=== PATIENT | female | born 1950 | race Caucasian/White ===

== ENCOUNTER 2021-02-13 20:21 | Inpatient (IN) | payer MEDICARE, SELFPAY ==
[2021-02-13 20:29] VITALS: BP 137/76; PULSE 66; RESP 14; TEMP 37.4; O2SAT 96; BMI 23.3
--- NOTE | 2021-02-13 21:36 | CTR_ITS ---
PROCEDURE INFORMATION: Exam: CT Abdomen And Pelvis With Contrast Exam date and time: 02/13/2021 9:45 PM Age: 70 years old Clinical indication: Abdominal pain; Periumbilical; Prior surgery; Surgery date: 6+ months; Surgery type: Hyst, gb, ivc filter; Patient HX: C/O nausea chills and anterior abd wall pain; Additional info: Abdominal wall pain, mass TECHNIQUE: Imaging protocol: Computed tomography of the abdomen and pelvis with contrast. Radiation optimization: All CT scans at this facility use at least one of these dose optimization techniques: automated exposure control; mA and/or kV adjustment per patient size (includes targeted exams where dose is matched to clinical indication); or iterative reconstruction. Contrast material: VISI 320; Contrast volume: 95 ml; Contrast route: INTRAVENOUS (IV); COMPARISON: No relevant prior studies available. RADIATION DOSE METRICS: Total DLP (mGy-cm): 1251.76 FINDINGS: Lungs: 2.6 mm pulmonary nodularity is seen in the right posterior hemithorax. Minimal strandy opacities are seen adjacent to the parietal pleura in the left anterior lung base. Pleural spaces: There are strandy opacity seen extending from the parietal pleura in the right middle lobe compatible with some pleural scarring. Mediastinal space: There is a small hiatal hernia. Liver: Normal. No mass. Gallbladder and bile ducts: Status post cholecystectomy. Pancreas: Normal. No ductal dilation. Spleen: Normal. No splenomegaly. Adrenal glands: There is a heterogeneous left adrenal mass present measuring 4.0 x 3.5 x 3.4 cm. Kidneys and ureters: There multiple simple appearing cysts seen within the left kidney, largest measuring 3.1 cm seen in the upper pole. There is a heterogeneous complex cystic appearing mass present within the lateral aspect of the right kidney that measures 8.9 cm craniocaudal dimension by 8 cm AP dimension by 7.8 cm transverse dimension. Numerous irregular septi are seen and soft tissue nodules are seen, the largest measuring approximately 1.7-1.9 cm in diameter. This finding is worrisome for a cystic renal cell carcinoma. Stomach and bowel: Unremarkable. No obstruction. No mucosal thickening. Appendix: No evidence of appendicitis. Intraperitoneal space: Unremarkable. No free air. No significant fluid collection. Vasculature: Unremarkable. No abdominal aortic aneurysm. Lymph nodes: Unremarkable. No enlarged lymph nodes. Urinary bladder: Unremarkable as visualized. Reproductive: Status post hysterectomy. Bones/joints: Unremarkable. No acute fracture. Soft tissues: Diffuse hazy opacities are seen in the subcutaneous fat and fascia the lower abdominal wall anteriorly. Additionally, there mottled gas densities seen within the subcutaneous fat and fascia in this region, findings that raise some suspicion for a gas forming bacterial infection. A small metallic clip is seen in the superficial subareolar region of the right breast. CT/CT abdomen pelvis w con* [id number] IMPRESSION: 1. There is a heterogeneous cystic masses within the right kidney highly suspicious for a cystic renal cell carcinoma. Its dimensions are given above. A urological consult is suggested. 2. Simple left renal cysts, the largest measuring 3.1 cm. 3. There are diffuse hazy and strandy opacity seen in the subcutaneous fat and fascia of the lower anterior abdominal wall with scattered subcutaneous gas densities present, findings raising suspicion for a gas forming bacterial infection and developing necrotizing fasciitis. 4. There is a heterogeneous left adrenal mass present measuring to 4 cm. In a patient with cancer history, consider biopsy or PET-CT. (Reference: Anthony) 5. Metallic clip in the superficial subareolar region of the right breast. There are strandy opacities and some pleural thickening seen in the right middle lobe anteriorly likely representing chronic scarring. Strandy opacities in the left anterior lung base likely represents pleural scarring as well COMMENTS: Consistent with the [employer]'s Incidental Findings Committee white paper (J Am Sweta Radiol 2018): Any incidental renal lesion less than 1 cm or classified as too small to characterize, or any incidental cystic renal lesion characterized as simple-appearing, is likely benign. No follow-up imaging is recommended for these lesions per consensus recommendations based on imaging criteria. REFERENCES: Anthony WALDROP, et al. Management of Incidental Adrenal Masses: A White Paper of the ACR Incidental Findings Committee. J Am Sweta Radiol. 2017;14(8):9512-8268. Radiation Dose CTDIVOL = (mGy): DLP = 1251.76 (mGy-cm)
--- NOTE | 2021-02-13 21:54 | W.ED.ABDPA2 ---
HPI - Abdominal Pain General: Chief Complaint: Abdominal Pain Stated Complaint: hard lump under belly button Time Seen by Provider: 02/13/21 20:52 History of Present Illness: HPI narrative: 70-year-old female complains of nausea, chills, and abdominal wall pain. She states that she has a painful tender area that is red and warm to her anterior abdominal wall. She noticed Monday, it has grown since then. She has had chills today. She is not felt well. She denies knowing that she has a fever. No recent surgery or trauma to the area MD elicited complaint: abdominal pain Pertinent past history: other Onset (ago): day(s) Pain Consistency: constant Location: Suprapubic Severity: moderate Quality: burning Radiation: none Migration to: no migration Exacerbating factors: movement Relieving factors: nothing Associated Symptoms: Reports chills and nausea; Denies anorexia, constipation, diarrhea, fever(s), hematuria, fecal incontinence and vomiting Review of Systems Const: Reports: chills; Denies: fever(s) Card: Denies: chest pain or palpitations Resp: Denies: dyspnea, productive cough or non-productive cough GI: Reports: nausea; Denies: vomiting, diarrhea, constipation or fecal incontinence : Denies: hematuria Neuro: Denies: dizziness or confusion Physical Exam Const: GENERAL APPEARANCE: well developed ORIENTATION/CONSCIOUSNESS: Yes oriented to person, Yes oriented to place and Yes oriented to time HENMT: COMMON NORMALS: normocephalic, external ears normal and Normal external nose present HEAD & SCALP: normocephalic FACE & SINUS: normal facial exam NOSE: Normal external nose present and No nasal discharge present EXTERNAL EAR: Yes external ears normal Eye: COMMON NORMALS: Equal, round and reactive pupils present, EOMs intact bilaterally and conjunctivae normal EYELID: eyelids normal CONJUNCTIVA: Yes conjunctivae normal PUPIL: Yes Equal, round and reactive pupils present Neck/C-Spine: GENERAL: No tracheal deviation Chest: COMMONS NORMALS: normal inspection of the chest CHEST: No tenderness Resp: COMMON NORMALS: clear to auscultation bilaterally EFFORT & INSPECTION: No tachypneic, No respiratory distress, No retractions, No uses accessory muscles and No tracheal deviation AUSCULTATION: clear to auscultation bilaterally, no rhonchi, no wheezes and lung sounds not diminished Cardio: COMMON NORMALS: regular rate and regular rhythm RATE: regular rate RHYTHM: regular rhythm HEART SOUNDS: no murmurs PERIPHERAL PULSES: radial pulses present GI: INSPECTION: No abdominal distension AUSCULTATION: No Hyperactive bowel sounds present and No Hypoactive bowel sounds present PALPATION: Yes Tenderness to palpation present (GI) (Superficial tenderness over the suprapubic area), No Guarding due to palpation present (GI) and No Rigid due to palpation : COMMON NORMALS: Yes no CVA tenderness BLADDER/KIDNEY EXAM: Yes no CVA tenderness Back/Pelvis: COMMON NORMALS: no CVA tenderness Neuro: SENSORIUM/ORIENTATION: Yes oriented to person, Yes oriented to place and Yes oriented to time Psych: COMMON NORMALS: mental status grossly normal Skin: NARRATIVE SKIN EXAM: Area of beefy erythema in the subumbilical, suprapubic region of the belly. There is palpable induration here. No definite fluctuance. There is no streaking. The area is warm Course Consultations: Consultation #1: good Consultation #2: franca Vital Signs: Vital signs: Vital Signs Temperature 99.4 F 02/13/21 20:29 Pulse Rate 105 H 02/13/21 23:25 Respiratory Rate 19 H 02/13/21 23:25 Blood Pressure 151/84 02/13/21 23:25 Pulse Oximetry 96 02/13/21 23:25 MDM - Abdominal Pain MDM Narrative: Medical decision making narrative: 70-year-old female with anterior abdominal wall pain. Her white blood cell count is 12.1, CRP 160 her creatinine is 1.3. Her CT shows diffuse hazy and strandy opacities in the subcutaneous fat with small scattered subcutaneous gas densities present. Cellulitis with suspicion at least of early necrotizing fasciitis. She will be admitted. Vancomycin and Zosyn in the ER. Hospitalist will see. Surgery has been consulted from the ER and accepts the consult. Lab Data: Labs: Lab Results 02/13/21 02/13/21 02/13/21 Range/Units 21:23 22:00 22:00 WBC 12.1 H (4.0-10.0) 10^3/ uL RBC 4.27 (4.1-5.3) 10^6/u L Hgb 12.4 (11.5-15.3) g/dL Hct 38.4 (37.0-47.0) % MCV 89.9 (81-99) fL MCH 29.0 (28.0-34.0) pg MCHC 32.3 (30.0-36.0) g/dL RDW 12.5 (12.1-15.1) % Plt Count 235 (130-400) 10^3/c mm MPV 10.3 (7.4-10.4) fL Neut % (Auto) 83.2 % Lymph % (Auto) 7.7 % [place] % (Auto) 8.0 % Eos % (Auto) 0.3 % Baso % (Auto) 0.2 % Neut # (Auto) 10.11 H (1.8-7.7) 10^3/u L Lymph # (Auto) 0.9 (0.8-4.8) 10^3/u L [place] # (Auto) 1.0 H (0.2-0.9) 10^3/u L Eos # (Auto) 0.0 (0.0-0.8) 10^3/u L Baso # (Auto) 0.0 (0.0-0.1) 10^3/u L Nucleated RBC % (a uto) 0 % Nucleated RBCs # 0.0 /100WBC Sodium 129 L (136-145) mmol/L Potassium 3.9 (3.5-5.1) mmol/L Chloride 90 L (98-107) mmol/L Carbon Dioxide 25 (22-29) mmol/L Anion Gap 17.9 (5-19) BUN 36 H (8-23) mg/dL Creatinine 1.3 H (0.5-0.9) mg/dL GFR Calculation Not Reportable Glucose 489 H (65-115) mg/dL Calculated Osmolal ity 298 H (285-295) mOsm/k g Lactate (0.5-2.2) mmol/L Calcium 9.0 (8.5-10.5) mg/dL Total Bilirubin 0.4 (0.15-1.2) mg/dL AST 10 (0-32) U/L ALT 10 (0-33) U/L Alkaline Phosphata se 83 (35-105) IU/L C-Reactive Protein 159.4 H (0.0-4.9) mg/L Total Protein 7.5 (6.6-8.7) g/dL Albumin 4.1 (3.5-5.2) g/dL Globulin 3.4 (1.3-4.6) g/dL Urine Color Yellow (Yellow) Urine Appearance Sl hazy (CLEAR) Urine pH 5 (5-7) Ur Specific Gravit y 1.010 (1.005-1.030) Urine Protein Neg (Negative) Urine Glucose (UA) 4+ H (Normal) Urine Ketones Negative (Negative) Urine Blood 2+ H (Negative) Urine Nitrate Negative (Negative) Urine Bilirubin Neg (Negative) Urine Urobilinogen Norm (Negative) mg/dL Ur Leukocyte Rosario ase Negative (Negative) Urine RBC 0-4 H (0-2) /hpf Urine WBC 0-4 H (0-5) /hpf Ur Squamous Epith Cells 5-10 H (0-5) /hpf Amorphous Sediment Not Reportable Urine Bacteria Trace (NONE) /hpf 02/13/21 Range/Units 22:00 WBC (4.0-10.0) 10^3/ uL RBC (4.1-5.3) 10^6/u L Hgb (11.5-15.3) g/dL Hct (37.0-47.0) % MCV (81-99) fL MCH (28.0-34.0) pg MCHC (30.0-36.0) g/dL RDW (12.1-15.1) % Plt Count (130-400) 10^3/c mm MPV (7.4-10.4) fL Neut % (Auto) % Lymph % (Auto) % [place] % (Auto) % Eos % (Auto) % Baso % (Auto) % Neut # (Auto) (1.8-7.7) 10^3/u L Lymph # (Auto) (0.8-4.8) 10^3/u L [place] # (Auto) (0.2-0.9) 10^3/u L Eos # (Auto) (0.0-0.8) 10^3/u L Baso # (Auto) (0.0-0.1) 10^3/u L Nucleated RBC % (a uto) % Nucleated RBCs # /100WBC Sodium (136-145) mmol/L Potassium (3.5-5.1) mmol/L Chloride (98-107) mmol/L Carbon Dioxide (22-29) mmol/L Anion Gap (5-19) BUN (8-23) mg/dL Creatinine (0.5-0.9) mg/dL GFR Calculation Glucose (65-115) mg/dL Calculated Osmolal ity (285-295) mOsm/k g Lactate 2.1 (0.5-2.2) mmol/L Calcium (8.5-10.5) mg/dL Total Bilirubin (0.15-1.2) mg/dL AST (0-32) U/L ALT (0-33) U/L Alkaline Phosphata se (35-105) IU/L C-Reactive Protein (0.0-4.9) mg/L Total Protein (6.6-8.7) g/dL Albumin (3.5-5.2) g/dL Globulin (1.3-4.6) g/dL Urine Color (Yellow) Urine Appearance (CLEAR) Urine pH (5-7) Ur Specific Gravit y (1.005-1.030) Urine Protein (Negative) Urine Glucose (UA) (Normal) Urine Ketones (Negative) Urine Blood (Negative) Urine Nitrate (Negative) Urine Bilirubin (Negative) Urine Urobilinogen (Negative) mg/dL Ur Leukocyte Rosario ase (Negative) Urine RBC (0-2) /hpf Urine WBC (0-5) /hpf Ur Squamous Epith Cells (0-5) /hpf Amorphous Sediment Urine Bacteria (NONE) /hpf Discharge Plan Discharge Patient Disposition: Admitted As Inpatient Admit Provider: Magdaleno Kendall Clinical Impression: Cellulitis Qualifiers: Site of cellulitis: trunk Site of cellulitis of trunk: abdominal wall Qualified Code(s): L03.311 - Cellulitis of abdominal wall Condition: Stable Coding Level of Care Code ED Chronic Specialist for [facility] Fwd Exam Comprehensive
[2021-02-13 21:56] LABS: Protein Urine Neg (Negative); Urine Appearance SL Hazy (CLEAR); Urine Color Yellow (Yellow); pH Urine 5 (5-7)
[2021-02-13 21:57] LABS: Add Urine Microscopic? YES; Bilirubin Urine Neg (Negative); Blood Urine 2+ (Negative); Glucose Urine UA 4+ (Normal); Ketones Urine Negative (Negative); Leukocyte Esterase Urine Negative (Negative); Nitrate Urine Negative (Negative); Urobilinogen Urine Norm (Negative)
[2021-02-13 21:58] LABS: Add Urine Culture? No; Bacteria Urine TRACE /hpf; RBC Urine 0-4 /hpf (0-2); WBC Urine 0-4 /hpf (0-5)
[2021-02-13] MEDS: sodium chloride 0.9% 1,000 ML 999 ML IV (22:03)
[2021-02-13 22:04] LABS: Basophils % 0.2 %; Eosinophils % 0.3 %; Hematocrit 38.4 % (37.0-47.0); Hemoglobin 12.4 g/dL (11.5-15.3); Lymphocytes # 0.9 10^3/uL (0.8-4.8); Lymphocytes % 7.7 %; Mean Corpuscular HGB Conc 32.3 g/dL (30.0-36.0); Mean Corpuscular Volume 89.9 fL (81-99); Mean Platelet Volume 10.3 fL (7.4-10.4); Neutrophils # 10.11 10^3/uL (1.8-7.7); Neutrophils % 83.2 %; Nucleated Red Blood Cells % 0 %; Platelet Count 235 10^3/cmm (130-400); Red Blood Count 4.27 10^6/uL (4.1-5.3); Red Cell Distribution Width 12.5 % (12.1-15.1); White Blood Count 12.1 10^3/uL (4.0-10.0)
[2021-02-13 22:05] VITALS: BP 151/84; PULSE 87; RESP 18; O2SAT 97
[2021-02-13 22:27] LABS: Lactate (Lactic Acid level) 2.1 mmol/L (0.5-2.2)
[2021-02-13 22:28] LABS: Alanine Aminotransferase 10 U/L (0-33); Albumin Level 4.1 g/dL (3.5-5.2); Alkaline Phosphatase 83 IU/L (35-105); Anion Gap 17.9 (5-19); Aspartate Amino Transferase 10 U/L (0-32); Blood Urea Nitrogen 36 mg/dL (8-23); C Reactive Protein 159.4 mg/L (0.0-4.9); Carbon Dioxide 25 mmol/L (22-29); Chloride 90 mmol/L (98-107); Globulin 3.4 g/dL (1.3-4.6); Glucose 489 mg/dL (65-115); Osmolality Calculated 298 mOsm/kg (285-295); Potassium 3.9 mmol/L (3.5-5.1); Sodium 129 mmol/L (136-145); Total Bilirubin 0.4 mg/dL (0.15-1.2); Total Protein 7.5 g/dL (6.6-8.7)
[2021-02-13] MEDS: iodixanol 320 mg/mL 100mL Btl IV (23:15)
[2021-02-13 23:25] VITALS: BP 151/84; PULSE 105; RESP 19; O2SAT 96
[2021-02-13] MEDS: ondansetron 2 mg/ML SDV 2 mL 4 MG IVP (23:35)
[2021-02-13] MEDS: morphine 4 mg/mL SDV 1 mL IVP (23:36)
[2021-02-14] VITALS (17 sets, daily range): BP systolic 91–144; BP diastolic 54–74; PULSE 58–119; RESP 14–20; TEMP 36.2–38.1; O2SAT 90–100
[2021-02-14] MEDS: piperacillin-tazobactam 3.375 GM in sodium chloride 0.9% (plus) 50 ML IV (00:27)
--- NOTE | 2021-02-14 00:40 | P.HP_ITS ---
Providers/Chief Complaint Admitting Physician: Magdaleno Kendall MD Chief Complaint: hard lump under belly button History of Present Illness Amaris Larsen is a 70 year old female diabetic presented with painful abdominal wall tenderness and redness. Onset 6 days ago. progressive. Reported chills. On insulin for diabetes. In ER she had CT abdomen pelvis. ABX started. She is being admitted for suspected gas forming bacterial infection in abdominal wall. CT abdomen pelvis CT/CT abdomen pelvis w con* [id number] IMPRESSION: 1. There is a heterogeneous cystic masses within the right kidney highly suspicious for a cystic renal cell carcinoma. Its dimensions are given above. A urological consult is suggested. 2. Simple left renal cysts, the largest measuring 3.1 cm. 3. There are diffuse hazy and strandy opacity seen in the subcutaneous fat and fascia of the lower anterior abdominal wall with scattered subcutaneous gas densities present, findings raising suspicion for a gas forming bacterial infection and developing necrotizing fasciitis. 4. There is a heterogeneous left adrenal mass present measuring to 4 cm. In a patient with cancer history, consider biopsy or PET-CT. (Reference: [facility]) 5. Metallic clip in the superficial subareolar region of the right breast. There are strandy opacities and some pleural thickening seen in the right middle lobe anteriorly likely representing chronic scarring. Strandy opacities in the left anterior lung base likely represents pleural scarring as well Review of Systems General: Reports: 10 or more systems reviewed and unremarkable except in HPI and below Const: Reports: chills; Denies: fever(s) Eyes: Denies: change in vision ENMT: Denies: throat pain Card: Denies: chest pain or palpitations Resp: Denies: dyspnea or productive cough GI: Reports: abdominal pain; Denies: nausea Musc: Denies: extremity pain or extremity swelling Skin/Breast: Reports: pruritus; Denies: rash Medications/Allergies Allergies Allergy/AdvReac Type Severity Reaction Status Date / Time No Known Allergies Allergy Verified 02/13/21 20:36 Vitals/I&O/Wt Last Vital Signs Temp 99.4 F 02/13/21 20:29 Pulse 105 H 02/13/21 23:25 Resp 19 H 02/13/21 23:25 BP 151/84 02/13/21 23:25 Pulse Ox 96 02/13/21 23:25 02/13/21 02/13/21 02/14/21 14:59 22:59 06:59 Intake Total 1000 / 1000 Balance 1000 / 1000 Weight last 48 hrs Weight 140 lb Physical Exam Const: COMMON NORMALS: no acute distress and no limitations Resp: COMMON NORMALS: normal respiratory effort and No retractions Cardio: COMMON NORMALS: no JVD, regular rate and regular rhythm GI: OTHER: erythema, tender, fluctuance Neuro: COMMON NORMALS: patient oriented x3 and CN's II-XII intact bilaterally Psych: COMMON NORMALS: mental status grossly normal and Normal thought process present Data : 02/13/21 22:00 02/13/21 22:00 Micro: Microbiology 02/13/21 22:43 Blood Culture - Preliminary Blood SPECIMEN COLLECTED 02/13/21 22:46 Blood Culture - Preliminary Blood SPECIMEN COLLECTED A&P Assessment and plan (1) Cellulitis: gas forming bacteria ddx clostridum perfinges continue vancomycin, zosyn--started in ED followup cultures GS consult PRN analgesics Status: Acute (2) Renal mass: will need further workup after acute issues addressed Status: Acute (3) Adrenal mass: will need additional imaging Status: Acute (4) Diabetes: fsbs, ssi Status: Acute (5) Acute kidney injury: ivf repeat labs Status: Acute Attestations Medical Necessity Statement*: Amaris Larsen's hospital stay will require g reater than 2 midnights for skin infection 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
[2021-02-14] MEDS: vancomycin 1,000 MG in sodium chloride 0.9% 250 ML 250 MG IV (01:04)
[2021-02-14] MEDS: sodium chloride 0.9% 1,000 ML 75 ML IV (02:30)
[2021-02-14 07:04] LABS: Glucose Point of Care 304 mg/dL (70-110)
--- NOTE | 2021-02-14 08:20 | P.CONIM_ITS ---
Providers/Reason For Consult Consulting Physican/Specialty*: General Surgery Dr. Alvarado Reason for Consult*: Abdominal abscess Attending Physician: Jaci Sandhu MD History of Present Illness History of Present Illness Amaris Larsen is a 70 year old female who presented to the ER yesterday with duration. The patient states that the pain got progressively worse and she subsequently developed nausea and chills. She denies any vomiting or fevers.Patient denies any history of trauma. No similar episodes in the past. Patient is a diabetic. She does not have a PCP here. She smokes about half pack of cigarettes a day. Patient denies any constipation or diarrhea. Review of Systems General: Reports: 10 or more systems reviewed and unremarkable except in HPI and below Meds/Allergies Home Medications and Allergies Allergies Allergy/AdvReac Type Severity Reaction Status Date / Time No Known Allergies Allergy Verified 02/13/21 20:36 Current Medications Current Medications Generic Name Dose Route Start Last Admin Trade Name Freq PRN Reason Stop Dose Admin Sodium Chloride 1,000 mls @ 75 mls/hr 02/14/21 00:45 02/14/21 02:30 Sodium Chloride 0.9% IV 75 mls/hr .[id number] LYN Administration PFSH Acute PFSH: Medical History Breast cancer right and left Diabetes mellitus DVT (deep venous thrombosis) Dyslipidemia HTN (hypertension), benign Surgical History H/O total hysterectomy S/P IVC filter Status post laparoscopic cholecystectomy Status post left breast lumpectomy Status post right breast lumpectomy Vitals/I&O/Wt Last Vital Signs Temp 99.8 F H 02/14/21 04:00 Pulse 80 02/14/21 04:00 Resp 16 02/14/21 04:00 BP 114/69 02/14/21 04:00 Pulse Ox 92 02/14/21 04:00 02/13/21 02/14/21 02/14/21 22:59 06:59 14:59 Intake Total 1300 / 1300 Output Total 0 / 0 Balance 1300 / 1300 Weight last 48 hrs Weight 140 lb Physical Exam Narrative: EXAM NARRATIVE: HEENT: Normocephalic Eye: Sclera /conjunctiva normal Respiratory and chest: Bilateral clear breath sounds on auscultation Cardiovascular: Normal S1 and S2 heart sounds Abdomen: Soft to palpation, tender, 6 x 6 cm area of erythema and induration consistent with abdominal wall abscess Neurological: Oriented to place person and time Skin: Intact, no lesions appreciated on gross exam Data Micro: Micro: Microbiology 02/13/21 22:43 Blood Culture - Pr eliminary Blood SPECIMEN COLLE SHILOH 02/13/21 22:46 Blood Culture - Pr eliminary Blood SPECIMEN [facility] A&P Assessment and plan (1) Abdominal wall abscess: 70-year-old female, diabetic who presents with a 3-day history of abdominal pain and swelling. Her WBC was 12.1 and glucose in the ER was 489. Since CT abdomen pelvis revealed right kidney mass concerning for malignancy, left adrenal mass and 6 x 6 cm subcutaneous area with induration and air pockets consistent with an abscess. Patient had breakfast this morning therefore will make her n.p.o. 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
[2021-02-14 11:26] LABS: Glucose Point of Care 301 mg/dL (70-110)
--- NOTE | 2021-02-14 14:40 | PC.NURSE ---
patient taken to OR via bed.
--- NOTE | 2021-02-14 15:16 | ANES.PREANE2 ---
Pre-Anesthetic Assessment Pre-Anesthetic Assessment: Height/Weight: Height 1.65 m Weight 63.503 kg Temp Pulse Resp BP Pulse Ox 98.7 F 74 17 113/63 94 02/14/21 14:47 02/14/21 14:47 02/14/21 14:47 02/14/21 14:47 02/14/21 14:47 Preop Diagnosis: abdominal wall abscess Proposed Procedure: Operation Date: 02/14/21 15:10 Proposed Procedures p Incision And Drainage Abdominal Wall Abscess(Not Applicable) - Ezequiel Alvarado MD Was Beta Gwendolyn taken within 24 hours: N/A Was Clonidine taken within 24 hours: N/A Last intake: Intake Last Liquid Date 02/14/21 Last Liquid Time 08:00 Last Solid Date 02/14/21 Last Solid Time 08:00 Social: Social History: Tobacco Exam: Pre-Anes Outpt Exam: alert, oriented x 3, clear to auscultation bilaterally and regular rate & rhythm Airway: Submandibular: WNL Cervical ROM: WNL MP: 2 Additional comments: Profound dental disease History/ROS: No significant history except as noted Pulmonary: Pulmonary: COPD CV/HEM: CV/HEM: HTN : : None reported Hepatic: Hepatic: None reported GI: GI: GERD Metabolic: Metabolic: DM and Hyperlipidemia Musc/skel: Musc/skel: None reported Neuropsych: Neuropsych: None reported Anesthetic Plan: ASA status: 3E Anesthesia: General Meds/Allergies Current Medications: Current Medications Generic Name Dose Route Start Last Admin Trade Name Freq PRN Reason Stop Dose Admin Sodium Chloride 1,000 mls @ 75 ml s/hr 02/14/21 00:45 02/14/21 02:30 Sodium Chloride 0.9% IV 75 mls/hr .[id number] LYN Administration Insulin Aspart 0 unit 02/14/21 08:00 02/14/21 11:26 Insulin Aspart 1 00 Unit/1 Ml SUBCUT 10 unit WM&BEDTIME LYN Administration Protocol PFSH Anesthesia PFSH: Medical History Breast cancer right and left Diabetes mellitus DVT (deep venous thrombosis) Dyslipidemia HTN (hypertension), benign Surgical History H/O total hysterectomy S/P IVC filter Status post laparoscopic cholecystectomy Status post left breast lumpectomy Status post right breast lumpectomy Data Anesthesia CBC & Chem 7: 02/13/21 22:00 02/13/21 22:00 Other Labs: Laboratory Results - last 48 hr 02/13/21 02/13/21 02/13/21 21:23 22:00 22:00 WBC 12.1 H RBC 4.27 Hgb 12.4 Hct 38.4 MCV 89.9 MCH 29.0 MCHC 32.3 RDW 12.5 Plt Count 235 MPV 10.3 Neut % (Auto) 83.2 Lymph % (Auto) 7.7 [place] % (Auto) 8.0 Eos % (Auto) 0.3 Baso % (Auto) 0.2 Neut # (Auto) 10.11 H Lymph # (Auto) 0.9 [place] # (Auto) 1.0 H Eos # (Auto) 0.0 Baso # (Auto) 0.0 Nucleated RBC % (auto) 0 Nucleated RBCs # 0.0 Sodium 129 L Potassium 3.9 Chloride 90 L Carbon Dioxide 25 Anion Gap 17.9 BUN 36 H Creatinine 1.3 H GFR Calculation Not Reportable Glucose 489 H POC Glucose Calculated Osmolality 298 H Lactate Calcium 9.0 Total Bilirubin 0.4 AST 10 ALT 10 Alkaline Phosphatase 83 C-Reactive Protein 159.4 H Total Protein 7.5 Albumin 4.1 Globulin 3.4 Urine Color Yellow Urine Appearance Sl hazy Urine pH 5 Ur Specific [place] 1.010 Urine Protein Neg Urine Glucose (UA) 4+ H Urine Ketones Negative Urine Blood 2+ H Urine Nitrate Negative Urine Bilirubin Neg Urine Urobilinogen Norm Ur Leukocyte Esterase Negative Urine RBC 0-4 H Urine WBC 0-4 H Ur Squamous Epith Cells 5-10 H Amorphous Sediment Not Reportable Urine Bacteria Trace 02/13/21 02/14/21 02/14/21 22:00 06:17 11:22 WBC RBC Hgb Hct MCV MCH MCHC RDW Plt Count MPV Neut % (Auto) Lymph % (Auto) [place] % (Auto) Eos % (Auto) Baso % (Auto) Neut # (Auto) Lymph # (Auto) [place] # (Auto) Eos # (Auto) Baso # (Auto) Nucleated RBC % (auto) Nucleated RBCs # Sodium Potassium Chloride Carbon Dioxide Anion Gap BUN Creatinine GFR Calculation Glucose POC Glucose 304 H 301 H Calculated Osmolality Lactate 2.1 Calcium Total Bilirubin AST ALT Alkaline Phosphatase C-Reactive Protein Total Protein Albumin Globulin Urine Color Urine Appearance Urine pH Ur Specific [place] Urine Protein Urine Glucose (UA) Urine Ketones Urine Blood Urine Nitrate Urine Bilirubin Urine Urobilinogen Ur Leukocyte Esterase Urine RBC Urine WBC Ur Squamous Epith Cells Amorphous Sediment Urine Bacteria Micro: Microbiology 02/13/21 22:43 Blood Culture - Preliminary Blood SPECIMEN COLLECTED 02/13/21 22:46 Blood Culture - Preliminary Blood SPECIMEN COLLECTED Cardiac Studies: No Data to Display
--- NOTE | 2021-02-14 15:40 | PM.OP ---
Operative Report Date of procedure: February 14, 2021 Pre-op Diagnosis: abdominal wall abscess Post-op Diagnosis: 6 x 5 x 3 cm abdominal wall abscess Procedure Done: Incision and drainage of abdominal wall abscess Specimens removed/disposition: Aerobic and anaerobic wound cultures Surgeon: Ezequiel Alvarado Anesthesia: General Condition: stable Disposition: PACU Procedure: Patient was taken to the operating room and intubated under general anesthesia. Patient is on therapeutic IV antibiotics. The abdomen was prepped and draped in a sterile manner. Using a 15 blade a 4 cm transverse incision was made, subcutaneous tissues divided with drainage of aubrie pus. Loculations were taken down bluntly, there was necrosis of the anterior rectus sheath which was excised. The abscess measured 6 x 5 x 3 cm. The wound was irrigated with saline, hemostasis was ensured and packed with Kerlix gauze and covered with ABDs. The patient was extubated and transferred to recovery room in stable condition.
--- NOTE | 2021-02-14 15:48 | SUR.PHASEI ---
1533 PATIENT TO PACU FROM OR. RR EVEN AND UNLABORED. DRESSING TO ABDOMEN, CDI.
--- NOTE | 2021-02-14 16:14 | SUR.PHASEI ---
1555 PATIENT TO MED SURG. NO DISTRESS. A/OX3. DENIES PAIN. RR EVEN AND UNLABORED.
--- NOTE | 2021-02-14 16:39 | ANE.PACU2 ---
Inpatient post-anesthesia follow up: Airway intact: Yes Vital signs: Temperature 98.4 F Pulse Rate [Left] 66 Pulse Rate 119 Respiratory Rate 18 Blood Pressure [Le ft Arm] 137/76 Blood Pressure 102/64 Pulse Oximetry 92 Oxygen Delivery Me thod Room Air Oxygen Flow Rate 10 Fraction of Inspir ed Oxygen Hydration adequate: Yes Nausea and vomiting: No Pain level: 2 Mental status: Baseline
[2021-02-14 16:44] LABS: Glucose Point of Care 177 mg/dL (70-110)
--- NOTE | 2021-02-14 17:23 | PM.PN ---
Subjective Subjective: Interval history: Patient seen after surgery. She is doing well. Feels better. Dressing is clean dry and intact. She is aware of the renal and adrenal masses seen on imaging. She has had both breast and uterine cancer. She underwent radiation therapy and hormone replacement therapy for breast cancer. She reports that more than 30 years ago she was told that she had a spot on her kidneys that was nothing to worry about but details otherwise are not known about that. She does not have a primary care provider here. She still sees her primary care provider in [place]. Dr. Stefanie Pruett [place] [id number] [place] [id number] NEXT appt is for 02/24/21 Not on insulin for diabetes Vitals/I&O/Wt Last Vital Signs Temp 98.4 F 02/14/21 16:39 Pulse 73 02/14/21 16:39 Resp 16 02/14/21 16:39 BP 103/67 02/14/21 16:39 Pulse Ox 95 02/14/21 16:39 02/14/21 02/14/21 02/14/21 06:59 14:59 22:59 Intake Total 1300 / 1300 1000 / 1000 Output Total 0 / 0 400 / 400 0 / 400 Balance 1300 / 1300 -400 / -400 1000 / 600 Weight last 48 hrs Weight 63.503 kg Physical Exam Narrative: EXAM NARRATIVE: She isNo acute distress, alert and oriented, lungs are clear, regular rhythm, abdomen is soft, clean dry and intact to the lower abdomen with appropriate tenderness, no pitting edema, moves all extremities Data : 02/13/21 22:00 02/13/21 22:00 Micro: Microbiology 02/14/21 15:15 Gram Stain - Final Abdomen 02/13/21 22:43 Blood Culture - Preliminary Blood SPECIMEN COLLECTED 02/13/21 22:46 Blood Culture - Preliminary Blood SPECIMEN COLLECTED A&P Assessment and plan (1) Abdominal wall abscess: With gas formation noted on CT imaging Status: Acute (2) Status post incision and drainage: 02/[address] Alvarado Status: Acute (3) Acute kidney injury: Status: Acute (4) Renal mass: Heterogeneous complex cystic appearing mass in the lateral aspect of the right kidney measuring 8.9 x 8 x 7.8 cm worrisome for cystic renal cell carcinoma per radiology interpretation Status: Acute (5) Adrenal mass: Left, 4 cm, new incidental finding on CT imaging of the abdomen and pelvis Status: Acute (6) Diabetes: Chronically on glyburide Status: Chronic Qualifiers: Diabetes mellitus type: type 2 Diabetes mellitus chcf insulin use: without chcf use Diabetes mellitus complication status: without complication Qualified Code(s): E11.9 - Type 2 diabetes mellitus without complications (7) HTN (hypertension), benign: Chronically on triamterene hydrochlorothiazide Status: Chronic (8) Dyslipidemia: Chronically on statin Status: Chronic (9) Breast cancer: On anastrozole Status: Chronic Additional A&P Information Continue current antibiotics Appreciate Dr. Alvarado assistance Follow-up pending cultures Repeat CRP in the morning Check hemoglobin A1c Add long-acting insulin Increase sliding scale insulin IV fluids Recheck electrolytes in the morning Hold home triamterene class hydrochlorothiazide Continue home statin I have requested records from her primary care provider in [place] to see if they have any records of previous CT scans of the abdomen or renal ultrasounds of anything of that sort as a comparison to what we are seeing today Dr. Maurer is out of town this coming week. As long as renal function improves I think she can follow-up outpatient for the renal mass and adrenal mass after acute infection is resolved Hold anastrozole for now Continue home Paxil SCDs for DVT prophylaxis currently Supportive care otherwise History of findings and plans were discussed with patient and her and they were both given an opportunity to ask questions Patient will need wound care follow-up here and is considering establishing a local provider given need for further evaluation of the renal and adrenal masses identified today. I did let her know that we have a [facility] here should anything be identified necessitating that. She was not aware. Full code Attestations Medical Necessity Statement*: Requires ongoing inpatient stay for antibiotics and IV fluids and monitoring status post incision and drainage of abdominal wall abscess Coding Level of Care Code Acute Program Schedule Clerk for g Fwd Diagnoses Abdominal wall abscess L02.211 Status post incision and drainage Z98.890 Acute kidney injury N17.9 Renal mass N28.89 Adrenal mass E27.8 Diabetes E11.9 Diabetes mellitus type: type 2 Diabetes mellitus chcf insulin use: without moth exterminator use Diabetes mellitus complication status: without complication HTN (hypertension), benign I10 Dyslipidemia E78.5 Breast cancer C50.919
[2021-02-14 20:37] LABS: Glucose Point of Care 343 mg/dL (70-110)
[2021-02-14] MEDS: trazodone 100 mg Tablet PO (21:30)
[2021-02-15] MEDS: piperacillin-tazobactam 3.375 GM in sodium chloride 0.9% (plus) 50 ML IV ×2 (02:01→09:44)
[2021-02-15 03:00] VITALS: BP 98/61; PULSE 61; RESP 16; TEMP 36.9; O2SAT 92
[2021-02-15 05:53] LABS: Basophils % 0.2 %; Hematocrit 33.6 % (37.0-47.0); Hemoglobin 10.6 g/dL (11.5-15.3); Lymphocytes # 0.7 10^3/uL (0.8-4.8); Lymphocytes % 6.8 %; Mean Corpuscular HGB Conc 31.5 g/dL (30.0-36.0); Mean Corpuscular Volume 92.1 fL (81-99); Mean Platelet Volume 10.7 fL (7.4-10.4); Monocytes # 0.8 10^3/uL (0.2-0.9); Monocytes % 7.2 %; Neutrophils # 8.85 10^3/uL (1.8-7.7); Neutrophils % 85.2 %; Nucleated Red Blood Cells % 0 %; Platelet Count 220 10^3/cmm (130-400); Red Blood Count 3.65 10^6/uL (4.1-5.3); Red Cell Distribution Width 12.5 % (12.1-15.1); White Blood Count 10.4 10^3/uL (4.0-10.0)
[2021-02-15] MEDS: sodium chloride 0.9% 1,000 ML 75 ML IV (05:59)
[2021-02-15] MEDS: vancomycin 1,250 MG/250 ML PIGGYBACK 250 MG IV (05:59)
[2021-02-15 06:05] LABS: Alanine Aminotransferase 17 U/L (0-33); Albumin Level 3.1 g/dL (3.5-5.2); Alkaline Phosphatase 73 IU/L (35-105); Anion Gap 14.2 (5-19); Aspartate Amino Transferase 14 U/L (0-32); Blood Urea Nitrogen 29 mg/dL (8-23); Calcium 8.2 mg/dL (8.5-10.5); Carbon Dioxide 23 mmol/L (22-29); Chloride 102 mmol/L (98-107); Globulin 3.3 g/dL (1.3-4.6); Glucose 305 mg/dL (65-115); Osmolality Calculated 297 mOsm/kg (285-295); Potassium 4.2 mmol/L (3.5-5.1); Sodium 135 mmol/L (136-145); Total Bilirubin 0.4 mg/dL (0.15-1.2); Total Protein 6.4 g/dL (6.6-8.7)
[2021-02-15 06:58] LABS: Glucose Point of Care 324 mg/dL (70-110)
[2021-02-15 08:00] VITALS: BP 115/65; PULSE 73; RESP 18; TEMP 37.2; O2SAT 93
[2021-02-15] MEDS: atorvastatin 40 mg Tablet 20 MG PO (08:11)
[2021-02-15] MEDS: PARoxetine 20 mg Tablet 30 MG PO (08:11)
--- NOTE | 2021-02-15 10:30 | PC.CHAP ---
Pastoral Care Encounter/Spiritual Assessment Type of Contact [] Declined teaching associate visit [] Patient/Family/Request visit [] Outpatient visit [x] Follow-up visit [] Physician referral [] Code/Alert [] Routine visit [] Staff referral [] Actively dying [] Patient sleeping [] Family support [] [] Out of room [] Palliative care [] [] Receiving care in room [] Pre-surgical visit [] Trauma [] Long length of stay [] ICU visit [] Other: Relational/Emotional Strength [] Patient feels connected with others/family/visitors/staff [] Distress [] Loneliness/isolation [] Abandonment Spirituality of Patient [] Person of Miranda [] Attends Shinto of their Miranda [] Believes in Prayer [] Reads Bible or Sabianist materials [] There are Spiritual issues to be addressed Assembler Knife Interventions [] Prayer [] Active listening [] Non-anxious presence [] Spiritual/emotional support [] Crisis/trauma care [] Spiritual counseling [] Bereavement support [] Provided bereavement packet [] Provided Bible/devotional materials [] Provided toy/stuffed animal, coloring book to patient or family member [] Provided Communion [] Anointing/Kermit [] Salvation [] Completed spiritual assessment [] Other: Impact on Illness or Injury [] Angry [] Fearful [] Anxious [] Often cries [] Exhaustion [] Unable to work [] Unable to attend gnosticism [] Unable to walk/stand [] Unable to read [] Unable to drive [] Unable to eat/drink [] Unable to sleep [] Unable to be with family [] Patient intubated [] Other: Summary Time spent with patient
--- NOTE | 2021-02-15 11:34 | PM.DCS ---
Discharge Providers Date of Admission: 02/14/21 00:24 Date of Discharge: February 15, 2021 Attending Provider at Admission: Magdaleno Kendall MD Attending Provider at Discharge: Aron Ortiz MD Diagnoses at Discharge Discharge Diagnosis (1) Abdominal wall abscess: Status: Acute (2) Status post incision and drainage: Status: Acute Permanent problem details: Abdominal wall abscess (3) Acute kidney injury: Status: Acute (4) Renal mass: Status: Acute (5) Adrenal mass: Status: Acute (6) Diabetes: Status: Chronic Qualifiers: Diabetes mellitus type: type 2 Diabetes mellitus tank terminal gauger insulin use: without tank terminal gauger use Diabetes mellitus complication status: without complication Qualified Code(s): E11.9 - Type 2 diabetes mellitus without complications (7) HTN (hypertension), benign: Status: Chronic (8) Dyslipidemia: Status: Chronic (9) Breast cancer: Status: Chronic Permanent problem details: right and left Reason for Visit Reason for Visit: hard lump under belly button Hospital Course Hospital Course This is a 70-year-old female with a past medical history of [id number] type 2 diabetes mellitus, breast cancer, hypertension, hyperlipidemia, anxiety depression who presents to [facility] due to concerns for abdominal wall tenderness and redness Patient was admitted to [facility] for abdominal wall abscess, received broad-spectrum antibiotic therapy, received an incision drainage by Dr. Christiano Ochoa, tolerated procedure well, clinically improving, discharged on Augmentin and doxycycline for 7 remaining days. Cultures are pending on discharge. Patient has type 2 diabetes mellitus, blood sugars were uncontrolled, takes glyburide at home which will be discontinued. I have discharged her on Lantus 5 units every morning. With a moderate dose sliding scale. Patient should record blood sugars 3 times daily, bring to primary care physician's office. Increase Lantus dose based on blood sugars, go to the emergency room blood sugar greater than 500, if blood sugar less than 60 drink or juice go to the emergency room. Patient was also found to have a heterogeneous complex cystic mass appearing in the right kidney, concerning for cystic renal cell carcinoma, will be referred to urology for further evaluation Was also found to have a 4 cm left adrenal mass, given history of breast cancer will refer her to hematology oncology as outpatient Physical Exam Const: COMMON NORMALS: no acute distress and patient oriented x3 HENMT: COMMON NORMALS: normocephalic HEAD & SCALP: normocephalic Neck/C-Spine: COMMON NORMALS: no JVD Resp: COMMON NORMALS: normal respiratory effort, No retractions, No use of accessory muscles and clear to auscultation bilaterally AUSCULTATION: clear to auscultation bilaterally Cardio: COMMON NORMALS: no JVD, regular rate, regular rhythm, S1 normal heart sound present and S2 normal heart sound present RATE: regular rate RHYTHM: regular rhythm HEART SOUNDS: S1 normal heart sound present and S2 normal heart sound present GI: COMMON NORMALS: Normal to inspection, nondistended, normoactive bowel sounds present, Soft to palpation, non-tender, No hepatosplenomegaly present, no masses and no bruits PALPATION: Yes Soft to palpation and Yes No hepatosplenomegaly present OTHER: Abdominal wall abscess, status post I&D, surgical site looks clean dry, minimal surrounding erythema Extremity: COMMON NORMALS: capillary refill normal, no clubbing, cyanosis or edema, no calf tenderness and no pedal edema Neuro: COMMON NORMALS: patient oriented x3 Psych: COMMON NORMALS: mental status grossly normal Discharge Data Data Completed and Pending: Completed Studies During Hospitalization Category Date Time Status CT abdomen pelvis w con* [id number] Urge nt Cat Scan 02/13/21 21:36 Completed Pending at discharge Category Date Time Status Anaerobic Culture Routine Lab 02/14/21 15:15 Results Basic Metabolic P rona AM LABS Lab 02/16/21 04:00 Ordered Blood Culture Sta t Lab 02/13/21 22:43 Results C Reactive Protei n AM LABS Lab 02/16/21 04:00 Ordered Complete Blood Co unt w/Auto AM LABS Lab 02/16/21 04:00 Ordered Hemoglobin A1C AM LABS Lab 02/16/21 04:00 Ordered Magnesium AM LABS Lab 02/16/21 04:00 Ordered Phosphorus AM LAB S Lab 02/16/21 04:00 Ordered Tissue Culture an d Gram Stain Tammie ne Lab 02/14/21 15:15 Results Vancomycin Trough Timed Lab 02/18/21 05:00 Ordered Labs from last 24 hours 02/15/21 02/15/21 02/15/21 06:55 05:27 05:27 WBC 10.4 H RBC 3.65 L Hgb 10.6 L Hct 33.6 L MCV 92.1 MCH 29.0 MCHC 31.5 RDW 12.5 Plt Count 220 MPV 10.7 H Neut % (Auto) 85.2 Lymph % (Auto) 6.8 [place] % (Auto) 7.2 Eos % (Auto) 0.0 Baso % (Auto) 0.2 Neut # (Auto) 8.85 H Lymph # (Auto) 0.7 L [place] # (Auto) 0.8 Eos # (Auto) 0.0 Baso # (Auto) 0.0 Nucleated RBC % (a uto) 0 Nucleated RBCs # 0.0 Sodium 135 L Potassium 4.2 Chloride 102 Carbon Dioxide 23 Anion Gap 14.2 BUN 29 H Creatinine 1.1 H GFR Calculation Not Reportable Glucose 305 H POC Glucose 324 H Calculated Osmolal ity 297 H Calcium 8.2 L Total Bilirubin 0.4 AST 14 ALT 17 Alkaline Phosphata se 73 Total Protein 6.4 L Albumin 3.1 L Globulin 3.3 02/14/21 02/14/21 20:31 16:38 WBC RBC Hgb Hct MCV MCH MCHC RDW Plt Count MPV Neut % (Auto) Lymph % (Auto) [place] % (Auto) Eos % (Auto) Baso % (Auto) Neut # (Auto) Lymph # (Auto) [place] # (Auto) Eos # (Auto) Baso # (Auto) Nucleated RBC % (a uto) Nucleated RBCs # Sodium Potassium Chloride Carbon Dioxide Anion Gap BUN Creatinine GFR Calculation Glucose POC Glucose 343 H 177 H Calculated Osmolal ity Calcium Total Bilirubin AST ALT Alkaline Phosphata se Total Protein Albumin Globulin Vitals: Last Vital Signs Temp 98.9 F 02/15/21 08:00 Pulse 73 02/15/21 08:00 Resp 18 02/15/21 08:00 BP 115/65 02/15/21 08:00 Pulse Ox 93 02/15/21 08:00 Discharge Plan Discharge Patient Disposition: Home Condition: Stable Prescriptions: New doxycycline hyclate 100 mg capsule 100 mg PO BID 7 Days Qty: 14 RF: 0 Augmentin 875-125 mg tablet 1 tab PO BID 7 Days Qty: 14 RF: 0 Lantus Solostar U-100 Insulin 100 unit/mL (3 mL) insulin pen 5 unit SUBCUT QAM Qty: 15 RF: 0 Novolog Flexpen U-100 Insulin 100 unit/mL (3 mL) insulin pen See Rx Instructions .ROUTE .COMPLEX Qty: 15 RF: 0 Continued anastrozole 1 mg tablet 1 mg PO DAILY RF: 0 pravastatin 40 mg tablet 40 mg PO DAILY RF: 0 trazodone 100 mg tablet 50 - 100 mg PO BEDTIME RF: 0 paroxetine HCl 30 mg tablet 30 mg PO DAILY RF: 0 ergocalciferol (vitamin D2) 1,250 mcg (50,000 unit) capsule 1,250 mcg PO Q7D RF: 0 Held triamterene-hydrochlorothiazid 37.5-25 mg tablet 1 tab PO BID RF: 0 Hold Instructions: Resume on 02/22/21. Discontinued glyburide 5 mg tablet 10 mg PO BID RF: 0 Discharge Orders: Discharge Order (Routine); Ordered 02/15/21 Ordered By: Aron Ortiz Referrals: [facility], [Staff Physician] - 1-3 days Discharge Diet: Diabetic Discharge Activity: Resume usual activity Patient Instructions: Insulin Aspart, Recombinant (Injection), Insulin Glargine (Injection), How to Check Your Blood Sugar (DC), Diabetic Foot Care (DC), Diabetic Hypoglycemia (DC), Diabetes Mellitus Type 2 in Adults (DC), What is Insulin (DC), What is Insulin (GEN), Giving an Insulin Injection (DC), Pen Devices for Insulin Administration (DC), Opioid Safety Activity Restrictions/Additional Instructions: INSULIN SLIDING SCALE: Fingerstick Blood Glucose Insulin Units 141-180 mg/dl 4 units/SQ 181-220 mg/dl 6 units/SQ 221-260 mg/dl 8 units/SQ 261-300 mg/dl 10 units/SQ 301-350 mg/dl 12 units/SQ 351-400 mg/dl 14 units/SQ greater than 400 mg/dl 16 units/SQ -Inject Lantus 5 units once in the morning subcu -Inject NovoLog insulin subcu, 3 times daily, before meals, based on your blood sugars, insulin sliding scale provided as above -Please record blood sugars 3 times daily into a log, bring to primary care physician's office visit -NovoLog insulin is associated with hypoglycemia, low blood sugar, which kills, make sure to only inject insulin if you were to eat -If your blood sugar is greater than 500 go to the emergency room -If blood sugar is less than 60, drink or juice and come to the emergency room -For abdominal wall abscess continue doxycycline and Augmentin for 1 week -Follow-up with wound care in the next few days -Continue packing changes Discharge Attestations Time Spent in Discharge Care*: greater than 30 min Quality Metrics Clinical Quality Measures During this hospital stay, did patient experience: None Coding Level of Care Code Acute Chg FW DC note Diagnoses Abdominal wall abscess L02.211 Status post incision and drainage Z98.890 Acute kidney injury N17.9 Renal mass N28.89 Adrenal mass E27.8 Diabetes E11.9 Diabetes mellitus type: type 2 Diabetes mellitus tank terminal gauger insulin use: without longterm use Diabetes mellitus complication status: without complication HTN (hypertension), benign I10 Dyslipidemia E78.5 Breast cancer C50.919
[2021-02-15 11:57] LABS: Glucose Point of Care 285 mg/dL (70-110)
[2021-02-15] MEDS: HYDROcodone-acetaminophen 5-325 mg Tablet 1 TAB PO (11:58)
[2021-02-15 12:00] VITALS: BP 128/73; PULSE 61; RESP 18; TEMP 37.2; O2SAT 95
[2021-02-15 12:28] LABS: Estmated Average Glucose 226; Hemoglobin A1C 9.5 % (4.0-6.0)
--- NOTE | 2021-02-15 13:25 | PC.NURSE ---
discharge instructions given to patient and , both verbalized understanding of instructions. teaching done on dressing change and insulin injections. both verbalized understanding.
--- NOTE | 2021-02-15 14:14 | PC.NURSE ---
patient taken to private vehicle via wheelchair by staff.
[2021-02-15 14:15] VITALS: BP 128/73; PULSE 61; RESP 18; TEMP 37.2; O2SAT 95
== END 2021-02-15 14:16 | disposition home or self-care (01) | DRG 580 ==
LOC: ER 20:52 → MEDSURG 02-14 00:39
PROVIDERS: Hospitalist; Surgery; Admitting Provider Internal Medicine; Emergency Provider Emergency Medicine; Visit Provider Family Medicine
PROC: 0J980ZZ Drainage of Abdomen Subcutaneous Tissue and Fascia, Open Approach (ICD-10-PCS; principal; 2021-02-14 15:00)
DX: L02.211 Cutaneous abscess of abdominal wall (principal); N17.9 Acute kidney failure, unspecified; E11.65 Type 2 diabetes mellitus with hyperglycemia; N28.89 Other specified disorders of kidney and ureter; E27.9 Disorder of adrenal gland, unspecified; F17.210 Nicotine dependence, cigarettes, uncomplicated; C50.912 Malignant neoplasm of unspecified site of left female breast; C50.911 Malignant neoplasm of unspecified site of right female breast; Z86.718 Personal history of other venous thrombosis and embolism; E78.5 Hyperlipidemia, unspecified; I10 Essential (primary) hypertension; Z85.42 Personal history of malignant neoplasm of other parts of uterus; Z90.710 Acquired absence of both cervix and uterus; Z92.3 Personal history of irradiation; F41.8 Other specified anxiety disorders; Z79.811 Long term (current) use of aromatase inhibitors
CPT/HCPCS: 36415; 36416; 74177; 80053; 81001; 82962; 83036; 83605; 85025; 86140; 87040; 87070; 87075; 87077; 87176; 87205; 96365; 96372; 96375; 99285; J0330; J1100; J1815; J2270; J2405; J2543; J2704; J3010; J3370; J7030; J7050; Q9967

== ENCOUNTER 2021-02-24 14:10 | Outpatient (CLI) | payer MEDICARE, SELFPAY | END 2021-02-24 14:11 | disposition home or self-care (01) | LOC: WOUND 14:11 | PROVIDERS: PCP Registered Nurse; Visit Provider Nurse Practitioner Family | DX: T81.89XA Other complications of procedures, not elsewhere classified, initial encounter (principal); Y83.8 Other surgical procedures as the cause of abnormal reaction of the patient, or of later complication, without mention of misadventure at the time of the procedure | CPT/HCPCS: G0463 ==

== ENCOUNTER 2021-03-02 15:17 | Outpatient (CLI) | payer MEDICARE, SELFPAY | END 2021-03-02 15:18 | disposition home or self-care (01) | LOC: WOUND 15:19 | PROVIDERS: PCP Registered Nurse; Visit Provider Thoracic Surgery (Cardiothoracic Vascular Surgery) | DX: T81.89XA Other complications of procedures, not elsewhere classified, initial encounter (principal); Y83.8 Other surgical procedures as the cause of abnormal reaction of the patient, or of later complication, without mention of misadventure at the time of the procedure | CPT/HCPCS: 11042; 97605 ==

== ENCOUNTER 2021-03-05 14:11 | Outpatient (CLI) | payer MEDICARE, SELFPAY | END 2021-03-05 14:12 | disposition home or self-care (01) | LOC: WOUND 14:12 | PROVIDERS: PCP Registered Nurse; Visit Provider Surgery | DX: T81.31XA Disruption of external operation (surgical) wound, not elsewhere classified, initial encounter (principal); Y83.8 Other surgical procedures as the cause of abnormal reaction of the patient, or of later complication, without mention of misadventure at the time of the procedure | CPT/HCPCS: 97605 ==

== ENCOUNTER 2021-03-09 07:58 | Outpatient (CLI) | payer MEDICARE, SELFPAY | END 2021-03-09 07:59 | disposition home or self-care (01) | LOC: WOUND 07:59 | PROVIDERS: PCP Registered Nurse; Visit Provider Thoracic Surgery (Cardiothoracic Vascular Surgery) | DX: T81.89XA Other complications of procedures, not elsewhere classified, initial encounter (principal); Y83.8 Other surgical procedures as the cause of abnormal reaction of the patient, or of later complication, without mention of misadventure at the time of the procedure | CPT/HCPCS: 11042 ==

== ENCOUNTER → 2021-03-11 09:26 | Outpatient (BNVA) | payer MEDICARE, SELFPAY | PROVIDERS: PCP Family Medicine; Referring Provider Family Medicine; Visit Provider Urology | DX: N28.89 Other specified disorders of kidney and ureter (principal); E27.8 Other specified disorders of adrenal gland; E11.9 Type 2 diabetes mellitus without complications; Z79.4 Long term (current) use of insulin | CPT/HCPCS: 81003 ==

== ENCOUNTER 2021-03-12 10:35 | Outpatient (CLI) | payer MEDICARE, SELFPAY | END 2021-03-12 10:36 | disposition home or self-care (01) | LOC: WOUND 10:36 | PROVIDERS: PCP Family Medicine; Visit Provider Nurse Practitioner Family | DX: T81.31XA Disruption of external operation (surgical) wound, not elsewhere classified, initial encounter (principal); Y83.8 Other surgical procedures as the cause of abnormal reaction of the patient, or of later complication, without mention of misadventure at the time of the procedure | CPT/HCPCS: 97605 ==

== ENCOUNTER 2021-03-16 10:39 | Outpatient (CLI) | payer MEDICARE, SELFPAY | END 2021-03-16 10:40 | disposition home or self-care (01) | LOC: WOUND 10:42 | PROVIDERS: PCP Family Medicine; Visit Provider Thoracic Surgery (Cardiothoracic Vascular Surgery) | DX: T81.89XA Other complications of procedures, not elsewhere classified, initial encounter (principal); Y83.8 Other surgical procedures as the cause of abnormal reaction of the patient, or of later complication, without mention of misadventure at the time of the procedure | CPT/HCPCS: 11042 ==

== ENCOUNTER 2021-03-19 14:59 | Outpatient (CLI) | payer MEDICARE, SELFPAY | END 2021-03-19 15:00 | disposition home or self-care (01) | LOC: WOUND 15:00 | PROVIDERS: PCP Family Medicine; Visit Provider Surgery | DX: T81.31XD Disruption of external operation (surgical) wound, not elsewhere classified, subsequent encounter (principal); Y83.8 Other surgical procedures as the cause of abnormal reaction of the patient, or of later complication, without mention of misadventure at the time of the procedure | CPT/HCPCS: 97605 ==

== ENCOUNTER 2021-03-23 10:12 | Outpatient (CLI) | payer MEDICARE, SELFPAY | END 2021-03-23 10:13 | disposition home or self-care (01) | LOC: WOUND 10:13 | PROVIDERS: PCP Family Medicine; Visit Provider Thoracic Surgery (Cardiothoracic Vascular Surgery) | DX: T81.89XA Other complications of procedures, not elsewhere classified, initial encounter (principal); Y83.8 Other surgical procedures as the cause of abnormal reaction of the patient, or of later complication, without mention of misadventure at the time of the procedure | CPT/HCPCS: 11042 ==

== ENCOUNTER 2021-03-26 15:02 | Outpatient (CLI) | payer MEDICARE, SELFPAY | END 2021-03-26 15:03 | disposition home or self-care (01) | LOC: WOUND 15:03 | PROVIDERS: PCP Family Medicine; Visit Provider Surgery | DX: T81.31XA Disruption of external operation (surgical) wound, not elsewhere classified, initial encounter (principal); Y83.8 Other surgical procedures as the cause of abnormal reaction of the patient, or of later complication, without mention of misadventure at the time of the procedure | CPT/HCPCS: 97605 ==

== ENCOUNTER 2021-03-30 09:17 | Outpatient (CLI) | payer MEDICARE, SELFPAY | END 2021-03-30 09:18 | disposition home or self-care (01) | LOC: WOUND 09:18 | PROVIDERS: PCP Family Medicine; Visit Provider Thoracic Surgery (Cardiothoracic Vascular Surgery) | DX: T81.89XA Other complications of procedures, not elsewhere classified, initial encounter (principal); Y83.8 Other surgical procedures as the cause of abnormal reaction of the patient, or of later complication, without mention of misadventure at the time of the procedure | CPT/HCPCS: 11042 ==

== ENCOUNTER 2021-04-02 14:38 | Outpatient (CLI) | payer MEDICARE, SELFPAY | END 2021-04-02 14:39 | disposition home or self-care (01) | LOC: WOUND 14:39 | PROVIDERS: PCP Family Medicine; Visit Provider Nurse Practitioner Family | DX: T81.31XA Disruption of external operation (surgical) wound, not elsewhere classified, initial encounter (principal); Y83.8 Other surgical procedures as the cause of abnormal reaction of the patient, or of later complication, without mention of misadventure at the time of the procedure | CPT/HCPCS: 97605 ==

== ENCOUNTER 2021-04-06 09:53 | Outpatient (CLI) | payer MEDICARE, SELFPAY | END 2021-04-06 09:54 | disposition home or self-care (01) | LOC: WOUND 09:56 | PROVIDERS: PCP Family Medicine; Visit Provider Thoracic Surgery (Cardiothoracic Vascular Surgery) | DX: T81.89XA Other complications of procedures, not elsewhere classified, initial encounter (principal); Y83.8 Other surgical procedures as the cause of abnormal reaction of the patient, or of later complication, without mention of misadventure at the time of the procedure | CPT/HCPCS: 97597 ==

== ENCOUNTER 2021-04-20 08:33 | Outpatient (CLI) | payer MEDICARE, SELFPAY | END 2021-04-20 08:34 | disposition home or self-care (01) | LOC: WOUND 08:34 | PROVIDERS: PCP Family Medicine; Visit Provider Thoracic Surgery (Cardiothoracic Vascular Surgery) | DX: T81.89XA Other complications of procedures, not elsewhere classified, initial encounter (principal); Y83.8 Other surgical procedures as the cause of abnormal reaction of the patient, or of later complication, without mention of misadventure at the time of the procedure | CPT/HCPCS: 11042; 99212 ==

== ENCOUNTER 2021-04-27 08:10 | Outpatient (CLI) | payer MEDICARE, SELFPAY | END 2021-04-27 08:11 | disposition home or self-care (01) | LOC: WPI 08:11 | PROVIDERS: PCP Family Medicine; Visit Provider Nurse Practitioner Family | DX: Z09 Encounter for follow-up examination after completed treatment for conditions other than malignant neoplasm (principal) | CPT/HCPCS: 99212 ==

== ENCOUNTER 2021-06-11 11:12 | Inpatient (IN) | payer MEDICARE, SELFPAY ==
[2021-06-11] VITALS (11 sets, daily range): BP systolic 110–148; BP diastolic 60–101; PULSE 56–103; RESP 14–18; TEMP 36.7–36.8; O2SAT 95–99; BMI 22.3
--- NOTE | 2021-06-11 11:56 | USCV_ITS ---
Amaris Larsen Age: 70 Gender: F : 1950 Exam Date: 06/11/2021 12:27 Ordering Phys: Nubia Cade MD Technologist: Jacqueline Ma Exam Location: [facility] Indication: RLE PAIN AND SWELLING HISTORY: Lower extremity edema. Lower extremity pain. PROCEDURES: Venous duplex imaging was performed in only the right lower extremity. The following venous structures were evaluated: common femoral vein, profunda vein, proximal portion of the greater saphenous vein, superficial femoral vein, and the popliteal vein. In addition, the posterior tibial and peroneal trunk were evaluated. Serial compression, augmentation maneuvers, and spectral Doppler flow evaluation were performed. FINDINGS: Right lower extremity: there is occlusive DVT from the CFV into the POP V, PTV and PERN V. CONCLUSIONS Occlusive DVT RLE from common femoral vein into popliteal vein , posterior tibial and peroneal vein Carloz Baer MD (Electronically Signed) Final Date: 11 June 2021 17:07 S
--- NOTE | 2021-06-11 12:05 | W.ED.GENADLT ---
HPI - General Adult General: Chief complaint: ER Hold Stated complaint: right leg swelling/pain/discoloration Time Seen by Provider: 06/11/21 11:44 History of Present Illness: HPI narrative: Patient is a 70-year-old male with a history of diabetes, hypertension, recent nephrectomy on 05/2021 for renal cancer presents emerged for evaluation acute right lower extremity swelling discoloration, and pain x1 day. Patient was doing well up until yesterday when she noticed swelling in the right leg. Patient also report reports mild shortness of breath. Denies any chest pain, abdominal pains, or complaints. Patient says that she has been moderate pain in the right leg. Patient denies any numbness, paresthesia, paralysis, pain with passive stretching, or decreased mobility at the present time. Onset:1 day ago Duration:1 day Location:home Severity:moderate/severe Review of Systems Narrative: Constitutional: No fever, no chills. HEENT: No vision changes CV: No chest pain, no palpitations PULM: no cough, no dyspnea. GI: No abdominal pain, no N/V/D. : No dysuria MSKEL: +RLE swelling and pain SKIN: +RLE discoloration NEURO: No headache, no focal weakness. HEME: No visible bruises PSYCH: Normal mood PFSH ED PFSH: Medical History (Updated 06/14/21 @ 00:01 by ) Breast cancer right and left Diabetes mellitus DVT (deep venous thrombosis) s/p hysterectomy x 2 episodes in one year, last ~1982 Dyslipidemia HTN (hypertension), benign Uterine cancer Surgical History (Updated 06/11/21 @ 14:17 by Aron Ortiz MD) H/O total hysterectomy History of nephrectomy, right Hx of partial adrenalectomy S/P IVC filter Status post incision and drainage (02/14/21) Abdominal wall abscess Status post laparoscopic cholecystectomy Status post left breast lumpectomy Status post right breast lumpectomy Family History Mother , AT AGE OF 71 BONE CANCER Cancer Other Diabetes Social History Smoking and tobacco status: former smoker Alcohol intake: never Household members: spouse Marital status: Current occupational status: disabled Female Reproductive History: Date of last menstrual period: 12/24/20 Physical Exam Narrative: EXAM NARRATIVE: Head: Atraumatic Eyes: PERRL, conjunctiva without injection ENT: Mucous membrane moist NECK: Supple, ROM intact LUNGS: LCTAB, no crackles/rhonchi CV: RRR ABDOMEN: Soft, nontender in all quadrants EXTREMITY: + Non tense but swollen compartments in the right tib/fib and thigh, 2+ DP/PT pulses in the right lower extremity, extremity swelling and discoloration SKIN: +RLE discoloration NEURO: Awake and alert, no focal motor deficits PSYCH: Normal mood and affect Course Vital Signs: Vital signs: Vital Signs Temperature 98.4 F 06/13/21 14:24 Pulse Rate 79 06/13/21 14:24 Respiratory Rate 14 06/13/21 14:24 Blood Pressure 110/71 06/13/21 14:24 Pulse Oximetry 92 06/13/21 14:24 MDM - General Adult MDM Narrative: Medical decision making narrative: 70-year-old female with recent surgery for renal cancer presents emergency room with acute swelling x1 day of right lower extremity. On exam, patient has DP/PT pulses, compartment appears to be firm but not tense. Ultrasound shows occlusive DVT. Given findings on physical exam, was decided to admit patient for further work-up. After the heparin started, I performed repeat assessment for compartment and saw significant relaxation o the compartments in the thighs and legs, which appear to be soft and pliable. I do not suspect compartment syndrome as patient does not have any paresthesia, pain, paralysis, or any other focal findings on the affected extremity. Disposition: Admission Lab Data: Labs: Lab Results 06/11/21 06/11/21 06/11/21 Range/Units 11:55 11:55 11:55 WBC 12.0 H (4.0-10.0) 10^3/ uL RBC 4.57 (4.1-5.3) 10^6/u L Hgb 12.9 (11.5-15.3) g/dL Hct 39.7 (37.0-47.0) % MCV 86.9 (81-99) fl MCH 28.2 (28.0-34.0) pg MCHC 32.5 (30.0-36.0) g/dL RDW 12.8 (12.1-15.1) % Plt Count 214 (130-400) 10^3/c mm MPV 10.5 H (7.4-10.4) fL Neut % (Auto) 79.2 % Lymph % (Auto) 13.0 % [place] % (Auto) 5.9 % Eos % (Auto) 1.0 % Baso % (Auto) 0.4 % Neut # (Auto) 9.47 H (1.8-7.7) 10^3/u L Lymph # (Auto) 1.6 (0.8-4.8) 10^3/u L [place] # (Auto) 0.7 (0.2-0.9) 10^3/u L Eos # (Auto) 0.1 (0.0-0.8) 10^3/u L Baso # (Auto) 0.1 (0.0-0.1) 10^3/u L Nucleated RBC % (a uto) 0 % Nucleated RBCs # 0.0 /100WBC PT 13.80 (12.1-14.9) SECO NDS INR 1.03 (0.8-1.2) APTT 29.0 (23.9-36.7) SECO NDS Sodium 131 L (136-145) mmol/L Potassium 4.6 (3.5-5.1) mmol/L Chloride 99 (98-107) mmol/L Carbon Dioxide 15 L (22-29) mmol/L Anion Gap 21.6 H (5-19) BUN 49 H (8-23) mg/dL Creatinine 2.0 H (0.5-0.9) mg/dL GFR Calculation Not Reportable Glucose 187 H (65-115) mg/dL Calculated Osmolal ity 290 (285-295) mOsm/k g Calcium 10.1 (8.5-10.5) mg/dL Creatine Kinase (26-192) U/L Troponin T Baselin e (0-10) ng/L NT-Pro-B Natriuret Pep (0-125) pg/mL 06/11/21 06/11/21 Range/Units 11:55 11:55 WBC (4.0-10.0) 10^3/ uL RBC (4.1-5.3) 10^6/u L Hgb (11.5-15.3) g/dL Hct (37.0-47.0) % MCV (81-99) fl MCH (28.0-34.0) pg MCHC (30.0-36.0) g/dL RDW (12.1-15.1) % Plt Count (130-400) 10^3/c mm MPV (7.4-10.4) fL Neut % (Auto) % Lymph % (Auto) % [place] % (Auto) % Eos % (Auto) % Baso % (Auto) % Neut # (Auto) (1.8-7.7) 10^3/u L Lymph # (Auto) (0.8-4.8) 10^3/u L [place] # (Auto) (0.2-0.9) 10^3/u L Eos # (Auto) (0.0-0.8) 10^3/u L Baso # (Auto) (0.0-0.1) 10^3/u L Nucleated RBC % (a uto) % Nucleated RBCs # /100WBC PT (12.1-14.9) SECO NDS INR (0.8-1.2) APTT (23.9-36.7) SECO NDS Sodium (136-145) mmol/L Potassium (3.5-5.1) mmol/L Chloride (98-107) mmol/L Carbon Dioxide (22-29) mmol/L Anion Gap (5-19) BUN (8-23) mg/dL Creatinine (0.5-0.9) mg/dL GFR Calculation Glucose (65-115) mg/dL Calculated Osmolal ity (285-295) mOsm/k g Calcium (8.5-10.5) mg/dL Creatine Kinase 35 (26-192) U/L Troponin T Baselin e 29 H (0-10) ng/L NT-Pro-B Natriuret Pep 167 H (0-125) pg/mL Discharge Plan Discharge Patient Disposition: Admitted As Inpatient Admit Provider: Aron Ortiz Clinical Impression: DVT (deep venous thrombosis) Condition: Stable Discharge Diet: Cardiac and Diabetic Discharge Activity: Resume usual activity Coding Level of Care Code 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
[2021-06-11 12:07] LABS: Basophils # 0.1 10^3/uL (0.0-0.1); Basophils % 0.4 %; Eosinophils # 0.1 10^3/uL (0.0-0.8); Hematocrit 39.7 % (37.0-47.0); Hemoglobin 12.9 g/dL (11.5-15.3); Lymphocytes # 1.6 10^3/uL (0.8-4.8); Mean Corpuscular HGB Conc 32.5 g/dL (30.0-36.0); Mean Corpuscular Hemoglobin 28.2 pg (28.0-34.0); Mean Corpuscular Volume 86.9 fl (81-99); Mean Platelet Volume 10.5 fL (7.4-10.4); Monocytes # 0.7 10^3/uL (0.2-0.9); Monocytes % 5.9 %; Neutrophils # 9.47 10^3/uL (1.8-7.7); Neutrophils % 79.2 %; Nucleated Red Blood Cells % 0 %; Platelet Count 214 10^3/cmm (130-400); Red Blood Count 4.57 10^6/uL (4.1-5.3); Red Cell Distribution Width 12.8 % (12.1-15.1)
[2021-06-11 12:26] LABS: INR 1.03 (0.8-1.2)
[2021-06-11 12:34] LABS: Blood Urea Nitrogen 49 mg/dL (8-23); Calcium 10.1 mg/dL (8.5-10.5); Carbon Dioxide 15 mmol/L (22-29); Chloride 99 mmol/L (98-107); Glucose 187 mg/dL (65-115); Osmolality Calculated 290 mOsm/kg (285-295); Sodium 131 mmol/L (136-145)
[2021-06-11] MEDS: morphine 4 mg/mL SDV 1 mL IVP (12:49)
[2021-06-11 12:58] LABS: Anion Gap 21.6 (5-19); Potassium 4.6 mmol/L (3.5-5.1)
--- NOTE | 2021-06-11 13:32 | PC.PHAR ---
PT STATES HER TAKES CARE OF HER MEDICATIONS-PTS VERIFIED PTS MEDICATIONS-PTS STATES HE GIVES THE NOVOLOG AFTER MEALS-
[2021-06-11] MEDS: heparin 5,000 unit/mL INJ 1 mL 4000 UNIT IVP (13:38)
[2021-06-11] MEDS: heparin drip 25,000 UNIT/500 ML PREMIX 16.51 UNIT IV (13:39)
--- NOTE | 2021-06-11 13:45 | CTR_ITS ---
PROCEDURE INFORMATION: Exam: CT Abdomen And Pelvis Without Contrast Exam date and time: 06/11/2021 1:45 PM Age: 70 years old Clinical indication: Abdominal tenderness; Prior surgery; Surgery date: 6+ months; Surgery type: Hyst, R neph, ivc filter; Patient HX: Breast and uterine CA w recent dx renal/adrenal tumor; Additional info: Rle dvt, with recent HX of renal CA, with adrenal tumor TECHNIQUE: Imaging protocol: Computed tomography of the abdomen and pelvis without contrast. Radiation optimization: All CT scans at this facility use at least one of these dose optimization techniques: automated exposure control; mA and/or kV adjustment per patient size (includes targeted exams where dose is matched to clinical indication); or iterative reconstruction. COMPARISON: CT abdomen pelvis w con* [id number] 02/13/2021 11:03 PM RADIATION DOSE METRICS: Total DLP (mGy-cm): 914.6 FINDINGS: Lungs: Calcified granuloma in the right lower lobe. Liver: Normal. No mass. Gallbladder and bile ducts: Cholecystectomy. The bile ducts are within normal limits. Pancreas: Normal. No ductal dilation. Spleen: Calcified granulomas in the spleen. Adrenal glands: Stable 3.5 cm low-density left adrenal nodule, with Hounsfield units measuring less than 10. This is consistent with a benign adenoma. The right adrenal is normal. Kidneys and ureters: Right nephrectomy. Fluid density cysts in the left kidney, Hounsfield units less than 20. Stable 1.4 cm hyperdense cortical lesion in the posterior left kidney, Hounsfield units measuring 56. Stomach and bowel: Mild diverticulosis of the sigmoid colon. Moderate scattered stool within the proximal and transverse colon. The small bowel is unremarkable. No obstruction. The stomach is decompressed. Appendix: The appendix is not visualized. No secondary signs of appendicitis. Intraperitoneal space: Unremarkable. No free air. No significant fluid collection. Retroperitoneal space: Large metal clip in the right retroperitoneum. Vasculature: Coronary artery calcifications. Atherosclerotic calcifications. No aneurysm. Lymph nodes: Unremarkable. No enlarged lymph nodes. Urinary bladder: Unremarkable as visualized. Reproductive: The uterus and ovaries are absent. Bones/joints: Unremarkable. No acute fracture. Soft tissues: Anterior laparotomy scar. CT/CT abdomen pelvis wo con [id number] IMPRESSION: 1. No acute abnormality identified in the abdomen or pelvis. 2. 1.4 cm stable hyperdense cortical lesion in the posterior left kidney is most likely a proteinaceous cyst. Recommend non-emergent MRI without and with contrast or non-emergent CT without and with contrast. MRI is preferred for masses under 1.5 cm. 3. Right nephrectomy. COMMENTS: Consistent with the [employer]'s Incidental Findings Committee white paper (J Am Sweta Radiol 2018): Any incidental renal lesion less than 1 cm or classified as too small to characterize, or any incidental cystic renal lesion characterized as simple-appearing, is likely benign. No follow-up imaging is recommended for these lesions per consensus recommendations based on imaging criteria. Radiation Dose CTDIVOL = (mGy): DLP = 914.6 (mGy-cm)
--- NOTE | 2021-06-11 14:12 | PM.HP ---
Providers/Chief Complaint Primary Care Provider: Aron Ortiz MD Chief Complaint: Pain in Right Leg, Swollen, sent by History of Present Illness Amaris Larsen is a 70 year old female with a past medical history of insulin-dependent type 2 diabetes mellitus, history of chronic neuropathic pain, hypertension, dyslipidemia, recent history of right renal cell carcinoma status post nephrectomy and adrenalectomy at [facility] 4 months ago, who quit smoking 4 months ago, presents to [facility] due to complaints of sudden onset right lower extremity swelling. Patient tells me that she has been doing well, since her surgery, she has been mobile, but does feel weak, no falls, no injuries, she has been doing okay recently, nothing out of the ordinary in the last day or so. But this morning she woke up with severe right lower extremity swelling, she does tell me that she has some pain, pain with range of motion, but the pain is quite minimal right now, no fevers, chills, no nausea, no vomiting, no chest pain, no palpitations, no shortness of breath. In the emergency room she was found to have an extensive right lower extremity DVT, is saturating high 90s on room air, there was concerns for compartment syndrome, at the right lower extremity all the way up to the mid thigh, was quite tight, thus ER provider had consulted surgery for a measuring compartment pressures. Currently she has sensation in the right lower extremity, can move her toes, she has good DP PT pulses, there is overlying skin changes, pain is minimal currently. Review of Systems Const: Reports: fatigue; Denies: fever(s), chills or malaise Eyes: Denies: change in vision or blurry vision ENMT: Denies: nasal congestion Card: Denies: chest pain, palpitations, irregular heart rhythm, edema, lightheadedness, syncope or dyspnea on exertion Resp: Denies: dyspnea, productive cough, non-productive cough or wheezing GI: Reports: abdominal pain (Lower abdominal pain); Denies: nausea, vomiting, hematemesis, diarrhea, constipation, hematochezia or melena : Denies: flank pain, dysuria or urinary frequency Musc: Denies: neck pain or back pain Skin/Breast: Denies: rash Neuro: Denies: headache(s), dizziness or vertigo Endo: Denies: polyuria or polydipsia Medications/Allergies Home Medications Medication Instructions Recorded Confirmed Last Taken Type blood sugar diagnostic #360 ea 03/09/21 06/11/21 Unknown Rx lancets #1 ea 03/09/21 06/11/21 Unknown Rx lancets 33 gauge #360 ea 03/09/21 06/11/21 Unknown Rx pen needle #360 ea 03/09/21 06/11/21 Unknown Rx strips #360 ea 03/09/21 06/11/21 Unknown Rx docusate sodium 100 mg capsule 100 mg PO DAILY PRN 90 Days #90 cap 05/18/21 06/11/21 06/11/21 08:00 Rx ergocalciferol (vitamin D2) 1,250 1,250 mcg PO Q7D #12 cap 05/18/21 06/11/21 06/09/21 Rx mcg (50,000 unit) capsule hydrocodone 10 mg-acetaminophen 1 tab PO BID 30 Days #60 tab 05/18/21 06/11/21 06/11/21 09:30 Rx 325 mg tablet 1/2 tab insulin aspart U-100 100 unit/mL See Rx Instructions .ROUTE 05/18/21 06/11/21 06/11/21 Rx (3 mL) subcutaneous pen .COMPLEX #15 ml 10 units insulin glargine 100 unit/mL (3 5 unit SUBCUT QAM #15 ml 05/18/21 06/11/21 06/11/21 09:00 Rx mL) subcutaneous pen pen needle, diabetic 32 gauge x #360 ea 05/26/21 06/11/21 Unknown Rx anastrozole 1 mg PO QPM 06/11/21 06/11/21 06/10/21 History paroxetine HCl 30 mg PO EVERY OTHER DAY 06/11/21 06/11/21 06/09/21 History pravastatin 40 mg PO QPM 06/11/21 06/11/21 06/10/21 History trazodone 100 mg PO BEDTIME 06/11/21 06/11/21 06/10/21 History triamterene-hydrochlorothiazid 1 tab PO QAM 06/11/21 06/11/21 06/11/21 08:00 History Allergies Allergy/AdvReac Type Severity Reaction Status Date / Time No Known Allergies Allergy Verified 06/11/21 13:32 PFSH Acute PFSH: Medical History Breast cancer right and left Diabetes mellitus DVT (deep venous thrombosis) s/p hysterectomy x 2 episodes in one year, last ~1982 Dyslipidemia HTN (hypertension), benign Uterine cancer Surgical History (Updated 06/11/21 @ 14:17 by Aron Ortiz MD) H/O total hysterectomy History of nephrectomy, right Hx of partial adrenalectomy S/P IVC filter Status post incision and drainage (02/14/21) Abdominal wall abscess Status post laparoscopic cholecystectomy Status post left breast lumpectomy Status post right breast lumpectomy Family History Mother , AT AGE OF 71 BONE CANCER Cancer Other Diabetes Social History Smoking and tobacco status: former smoker Alcohol intake: never Household members: spouse Marital status: Current occupational status: disabled Female Reproductive History: Date of last menstrual period: 12/24/20 Vitals/I&O/Wt Last Vital Signs Temp 98.3 F 06/11/21 11:31 Pulse 56 L 06/11/21 14:07 Resp 16 06/11/21 14:07 BP 148/101 06/11/21 14:07 Pulse Ox 97 06/11/21 14:07 Weight last 48 hrs Weight 58.967 kg Physical Exam Const: COMMON NORMALS: no acute distress and patient oriented x3 Eye: COMMON NORMALS: Equal, round and reactive pupils present GENERAL EYE: appearance normal, both eyes and all related structures PUPIL: Yes Equal, round and reactive pupils present Neck/C-Spine: COMMON NORMALS: full ROM THYROID: Thyroid normal Lymph: LYMPHATIC: no lymphadenopathy noted Resp: COMMON NORMALS: normal respiratory effort, No retractions, No use of accessory muscles and clear to auscultation bilaterally AUSCULTATION: clear to auscultation bilaterally Cardio: COMMON NORMALS: regular rate, regular rhythm, S1 normal heart sound present, S2 normal heart sound present, No gallops present (Cardio), No clicks present (Cardio) and No murmurs present (Cardio) RATE: regular rate RHYTHM: regular rhythm HEART SOUNDS: S1 normal heart sound present and S2 normal heart sound present GI: COMMON NORMALS: Normal to inspection, nondistended, normoactive bowel sounds present and Soft to palpation Extremity: COMMON NORMALS: no pedal edema NARRATIVE EXTREMITY EXAM: Right lower extremity, swelling, erythema, tenderness, starting from the mid thigh extending down to the right ankle, with overlying skin changes, warmth, no hypersensitivity to touch, no exquisite tenderness, but does have pain, DP PT pulses are palpable, Neuro: COMMON NORMALS: patient oriented x3, CN's II-XII intact bilaterally, moves all extremities and no focal motor deficits Psych: COMMON NORMALS: mental status grossly normal, Normal thought process present and cooperative THOUGHT PROCESS: Normal thought process present Data : 06/11/21 11:55 06/11/21 11:55 A&P Assessment and plan (1) DVT (deep venous thrombosis): -No complaints of chest pain, no complaints of shortness of breath -Etiology uncertain, was mobile after her surgery, as she has a history of renal cell carcinoma status post nephrectomy and partial adrenalectomy, will do a CT scan of the abdomen pelvis due to concerns for possible metastasis -In addition there is concerns for compartment syndrome, however has good DP PT pulses, good range of motion, no exquisite tenderness, pain is minimal currently, measuring compartment pressures, initial compartment pressure pending, will get CPK, Dr. Chapman on consult -Continue heparin drip -Serial EKGs, serial troponins, telemetry monitoring, BNP, cardiac echo -Monitor PTT, monitor hemoglobin -Protonix -Heparin for DVT prophylaxis -Full code NOAM, creatinine up to 2.1, etiology uncertain, start gentle IV hydration, obtain UA, CPK, CT scan abdomen pelvis as above Type 2 diabetes mellitus, continue Lantus, low-dose sliding scale Hypertension, hold nephrotoxic medications History of breast cancer, hold anastrozole, possibly anastrozole can be associated with DVTs Pain control, morphine Status: Acute (2) Insulin dependent type 2 diabetes mellitus: Status: Acute (3) HTN (hypertension), benign: Status: Chronic (4) Dyslipidemia: Status: Chronic (5) Breast cancer: Status: Chronic (6) Acute kidney injury: Status: Acute Attestations Medical Necessity Statement*: Patient requires hospitalization, inpatient, greater than 2 midnights, for right lower extremity DVT with concerns for possible compartment syndrome, NOAM Coding Level of Care Code 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
[2021-06-11 14:35] LABS: Troponin(5th) Baseline 29 ng/L (0-10)
--- NOTE | 2021-06-11 14:35 | USCV_ITS ---
Cassy Larsenne Age: 70 Gender: F : 1950 Exam Date: 06/11/2021 15:53 Ordering Phys: Aron Ortiz MD Technologist: Savanah Hayward Exam Location: [facility] Indication: KNOWN DVT RT LEG. QUESTION OF RT HEART STRAIN BP: 124 / 81 HR: 61 Rhythm: Sinus Technical Quality: Adequate MEASUREMENTS (Male / Female) Normal Values 2D ECHO LV Diastolic Diameter PLAX 3.3 cm 4.2 - 5.9 / 3.9 - 5.3 cm LV Systolic Diameter PLAX 3.2 cm LV Chamber Size 2.4 cm IVS Diastolic Thickness 1.2 cm 0.6 - 1.0 / 0.6 - 0.9 cm IVS Systolic Thickness 1.3 cm LVPW Diastolic Thickness 1.5 cm 0.6 - 1.0 / 0.6 - 0.9 cm LVPW Systolic Thickness 1.8 cm RV Chamber Size 2.1 cm LVOT Diameter 2.0 cm LV Ejection Fraction 2D Teich 11.0 % LV Ejection Fraction MOD 2C 89.0 % LV Ejection Fraction 2C AL 89.7 % LA Diameter 3.0 cm LA Width 2.5 cm LA Height 3.9 cm RA Width 2.5 cm RA Height 3.5 cm Aorta at Sinotubular Diameter 3.0 cm M-MODE LV Diastolic Diameter MM 3.2 cm 4.2 - 5.9 / 3.9 - 5.3 cm LV Systolic Diameter MM 2.2 cm LV Ejection Fraction MM Teich 59.2 % IVS Diastolic Thickness MM 0.8 cm 0.6 - 1.0 / 0.6 - 0.9 cm IVS Systolic Thickness MM 1.1 cm LVPW Diastolic Thickness MM 1.5 cm 0.6 - 1.0 / 0.6 - 0.9 cm LVPW Systolic Thickness MM 1.2 cm Aortic Annulus Diameter 3.0 cm LA Ao Ratio MM 1.2 MV E Point Septal Separation 0.7 cm DOPPLER AV Peak Velocity 150.0 cm/s LVOT Peak Velocity 104.0 cm/s AV Area Cont Eq vti 2.6 cm squared AV Area Cont Eq pk 2.1 cm squared MV Area PHT 2.0 cm squared Mitral E to A Ratio 0.7 MV E' Velocity 39.8 cm/s Mitral E to MV E' Ratio 9.9 Mitral E to LV E' Lateral Ratio 9.8 Mitral E to LV E' Septal Ratio 10.0 TR Peak Velocity 121.7 cm/s TR Peak Gradient 5.9 mmHg TR Mean Velocity 76.0 cm/s TR Mean Gradient 2.8 mmHg TR Velocity Time Integral 25.6 cm TV Peak E Velocity 55.0 cm/s PV Peak Velocity 56.0 cm/s RV Acceleration Time 0.1 s RV Ejection Time 0.3 s RV AcT/ET 0.4 FINDINGS Left Ventricle Normal left ventricular size, systolic function and wall thickness, with no regional wall motion abnormalities. Left ventricular ejection fraction is estimated at 65 %. Grade I diastolic dysfunction (abnormal relaxation filling pattern), normal to mildly elevated filling pressures. Right Ventricle Normal right ventricular size and systolic function. RVSP could not be calculated due to incomplete tricuspid regurgitation velocity profile. Right Atrium Normal right atrial size. Left Atrium Normal left atrial size. Mitral Valve Mild mitral annular calcification. No mitral valve stenosis. No significant mitral valve regurgitation. Aortic Valve Structurally normal trileaflet aortic valve. No aortic valve stenosis. No aortic valve regurgitation. Tricuspid Valve Structurally normal tricuspid valve. Trace tricuspid valve regurgitation. Pulmonic Valve Pulmonic valve not well visualized. Pericardium No pericardial effusion. Aorta Normal size aortic root. CONCLUSIONS 1. Normal left ventricular size, systolic function and wall thickness, with no regional wall motion abnormalities. Left ventricular ejection fraction is estimated at 65 %. Grade I diastolic dysfunction (abnormal relaxation filling pattern), normal to mildly elevated filling pressures. 2. No significant valvular abnormality. 3. Normal right ventricular size and systolic function. 4. No prior similar studies to compare. Jane Camilo MD (Electronically Signed) Final Date: 11 June 2021 22:10 S
[2021-06-11 14:42] LABS: Creatine Phosphokinase 35 U/L (26-192); NT Pro B Type Natriuretic Pept 167 pg/mL (0-125)
--- NOTE | 2021-06-11 15:39 | PC.NURSE ---
EKG reviewed by Dr. Cade
[2021-06-11 15:45] LABS: Urine Creatinine 95 mg/dL (28-217); Urine Random Chloride 52 mmol/L; Urine Random Sodium 65 mmol/L
[2021-06-11 16:05] LABS: Troponin 5 2HR 28.66 ng/L (0-10)
--- NOTE | 2021-06-11 16:08 | ECG_ITS ---
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 Measurements Intervals [place] Rate: 61 P: 38 AL: 171 QRS: -68 QRSD: 83 T: 49 QT: 384 QTc: 390 Interpretive Statements SINUS RHYTHM PATTERN CONSISTENT WITH PULMONARY DISEASE LEFT ANTERIOR FASCICULAR BLOCK [QRS AXIS <= -45, QR IN I, RS IN II] No previous ECG available for comparison Electronically Signed On 06-11-2021 20:37:05 CDT by Yousif Navarro M.D. [id number]
[2021-06-11 16:09] LABS: Troponin 5 2HR Delta -0.34 ABS# (0-10)
[2021-06-11] MEDS: morphine 4 mg/mL SDV 1 mL 2 MG IVP ×2 (16:28→22:14)
[2021-06-11 17:10] LABS: Eosinophil Urine No Eosinophils Seen
[2021-06-11] MEDS: famotidine 20 mg Tablet PO (18:25)
[2021-06-11] MEDS: atorvastatin 40 mg Tablet 20 MG PO (18:25)
--- NOTE | 2021-06-11 20:08 | ECG_ITS ---
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 Measurements Intervals [place] Rate: 66 P: 144 IN: 198 QRS: 240 QRSD: 84 T: 148 QT: 398 QTc: 417 Interpretive Statements SINUS RHYTHM ARM LEADS REVERSED [INVERTED P AND QRS IN I] Compared to ECG 06/11/2021 15:35:39 Left anterior fascicular block no longer present Electronically Signed On 06-14-2021 21:43:27 CDT by Jane Camilo M.D. [id number]
[2021-06-11] MEDS: acetaminophen 325 mg Tablet 650 MG PO (21:24)
[2021-06-11] MEDS: trazodone 100 mg Tablet PO (21:25)
[2021-06-11] MEDS: sodium chloride 0.9% 1,000 ML 75 ML IV (21:57)
[2021-06-11 22:44] LABS: Partial Thromboplastin Time 75.3 SECONDS (23.9-36.7)
[2021-06-11 23:54] LABS: Troponin 5 6HR 32.25 ng/L (0-10)
[2021-06-12] VITALS (9 sets, daily range): BP systolic 96–136; BP diastolic 57–81; PULSE 60–77; RESP 16–20; TEMP 36.4–37.1; O2SAT 90–98
[2021-06-12 06:46] LABS: Glucose Point of Care 247 mg/dL (70-110)
[2021-06-12] MEDS: insulin glargine 100 units/1 mL 5 UNIT SUBCUT (06:46)
[2021-06-12 07:09] LABS: Basophils % 0.1 %; Eosinophils # 0.2 10^3/uL (0.0-0.8); Eosinophils % 2.6 %; Hematocrit 37.2 % (37.0-47.0); Hemoglobin 11.7 g/dL (11.5-15.3); Lymphocytes # 1.9 10^3/uL (0.8-4.8); Lymphocytes % 27.3 %; Mean Corpuscular HGB Conc 31.5 g/dL (30.0-36.0); Mean Corpuscular Hemoglobin 28.1 pg (28.0-34.0); Mean Corpuscular Volume 89.2 fl (81-99); Mean Platelet Volume 10.1 fL (7.4-10.4); Monocytes # 0.5 10^3/uL (0.2-0.9); Monocytes % 7.8 %; Neutrophils # 4.24 10^3/uL (1.8-7.7); Neutrophils % 61.8 %; Nucleated Red Blood Cells % 0 %; Platelet Count 194 10^3/cmm (130-400); Red Blood Count 4.17 10^6/uL (4.1-5.3); Red Cell Distribution Width 13.1 % (12.1-15.1); White Blood Count 6.9 10^3/uL (4.0-10.0)
[2021-06-12 07:15] LABS: Partial Thromboplastin Time 62.5 SECONDS (23.9-36.7)
[2021-06-12] MEDS: famotidine 20 mg Tablet PO ×2 (07:23→16:50)
[2021-06-12] MEDS: sodium chloride 0.9% 1,000 ML 75 ML IV ×2 (07:23→16:51)
[2021-06-12] MEDS: morphine 4 mg/mL SDV 1 mL 2 MG IVP ×3 (07:29→20:50)
[2021-06-12 07:31] LABS: Alanine Aminotransferase 42 U/L (0-33); Albumin Level 3.9 g/dL (3.5-5.2); Alkaline Phosphatase 115 IU/L (35-105); Anion Gap 17.5 (5-19); Aspartate Amino Transferase 43 U/L (0-32); Blood Urea Nitrogen 53 mg/dL (8-23); Calcium 9.3 mg/dL (8.5-10.5); Carbon Dioxide 18 mmol/L (22-29); Chloride 102 mmol/L (98-107); Globulin 3.6 g/dL (1.3-4.6); Glucose 230 mg/dL (65-115); Magnesium 1.9 mg/dL (1.7-2.3); Osmolality Calculated 298 mOsm/kg (285-295); Phosphorus 3.6 mg/dL (2.5-4.5); Potassium 4.5 mmol/L (3.5-5.1); Sodium 133 mmol/L (136-145); Total Bilirubin 0.3 mg/dL (0.15-1.2); Total Protein 7.5 g/dL (6.6-8.7)
--- NOTE | 2021-06-12 12:48 | P.CONIM_ITS ---
Providers/Reason For Consult Consulting Physician/Specialty*: nephro Reason for Consult*: didi Attending Physician: Aron Ortiz MD Primary Care Provider: Aron Ortiz MD History of Present Illness History of Present Illness Thank you for consultation, today I had the pleasure reviewing this 70-year-old female for evaluation of acute on chronic kidney disease. Abdominal history really revolves around the radical nephrectomy that she had on 05/03/2021. This was for renal cell carcinoma. We have labs preceding this in January when his serum creatinine was 1.1 mg/dL. We do not have any labs following this procedure. She developed acute swelling of the right lower extremity yesterday and was subsequently brought to the emergency room where she was diagnosed with a DVT. She has since been started on a heparin infusion. It was noted that her serum creatinine is now 2 mg/dL. She did receive some intravenous fluid, however, creatinine has increased to 2.1 mg/dL. CT scan of the abdomen and pelvis demonstrated a left kidney with a benign-appearing cyst but otherwise no evidence of obstructive uropathy. Fractional excretion of sodium is 1.1%, however, this is in the setting of recent Maxide exposure. Prior to hospitalization she denies any recent exposure to potentially nephrotoxic substances including IV contrast, anti-inflammatory medication etc. As an outpatient she does take Maxide, no KULWINDER inhibitors. Blood pressure has been on the softer side since hospitalization, the lowest in the high 90s systolic range, otherwise, it has been relatively stable. Apart from the right lower extremity, there is no other edema, no other symptoms of hypervolemia. She is passing her urine without obstructive symptoms and a Blake catheter has been placed since hospitalization. Urine appears clear, nonbloody or cloudy. No uremic symptoms. Review of Systems Narrative: ROS - 12 point review of systems completed per HPI and subjective assessment, this includes Constitutional: No weakness, fatigue Respiratory: No SOB on exertion, comfortable at rest CardioVasc: No chest pain, palpitations Gastrointestinal: No nausea, no vomiting Neurological: No seizures, no AMS Derm: No new rashes, lesions or wounds Immunological: No seasonal and no food allergies Meds/Allergies Home Medications and Allergies Home Medications Medication Instructions Recorded Confirmed Last Taken Type blood sugar diagnostic #360 ea 03/09/21 06/11/21 Unknown Rx lancets #1 ea 03/09/21 06/11/21 Unknown Rx lancets 33 gauge #360 ea 03/09/21 06/11/21 Unknown Rx pen needle #360 ea 03/09/21 06/11/21 Unknown Rx strips #360 ea 03/09/21 06/11/21 Unknown Rx docusate sodium 100 mg capsule 100 mg PO DAILY PRN 90 Days #90 cap 05/18/21 06/11/21 06/11/21 08:00 Rx ergocalciferol (vitamin D2) 1,250 1,250 mcg PO Q7D #12 cap 05/18/21 06/11/21 06/09/21 Rx mcg (50,000 unit) capsule hydrocodone 10 mg-acetaminophen 1 tab PO BID 30 Days #60 tab 05/18/21 06/11/21 06/11/21 09:30 Rx 325 mg tablet 1/2 tab insulin aspart U-100 100 unit/mL See Rx Instructions .ROUTE 05/18/21 06/11/21 06/11/21 Rx (3 mL) subcutaneous pen .COMPLEX #15 ml 10 units insulin glargine 100 unit/mL (3 5 unit SUBCUT QAM #15 ml 05/18/21 06/11/21 06/11/21 09:00 Rx mL) subcutaneous pen pen needle, diabetic 32 gauge x #360 ea 05/26/21 06/11/21 Unknown Rx anastrozole 1 mg PO QPM 06/11/21 06/11/21 06/10/21 History paroxetine HCl 30 mg PO EVERY OTHER DAY 06/11/21 06/11/21 06/09/21 History pravastatin 40 mg PO QPM 06/11/21 06/11/21 06/10/21 History trazodone 100 mg PO BEDTIME 06/11/21 06/11/21 06/10/21 History triamterene-hydrochlorothiazid 1 tab PO QAM 06/11/21 06/11/21 06/11/21 08:00 History Allergies Allergy/AdvReac Type Severity Reaction Status Date / Time No Known Allergies Allergy Verified 06/11/21 13:32 Current Medications Current Medications Generic Name Dose Route Start Last Admin Trade Name Freq PRN Reason Stop Dose Admin Acetaminophen 650 mg 06/11/21 14:35 06/11/21 21:24 Acetaminophen 325 Mg Tablet PO 650 mg Q6H PRN Administration Mild/Mod Pain Or Temp >/= 101 Atorvastatin Calcium 20 mg 06/11/21 18:00 06/11/21 18:25 Atorvastatin 40 Mg Tablet PO 20 mg QPM LYN Administration Famotidine 20 mg 06/11/21 18:00 06/12/21 07:23 Famotidine 20 Mg Tablet PO 20 mg BID LYN Administration Heparin Sodium/Sodium Chloride 25,000 unit in 500 mls @ 0 mls/hr 06/11/21 12:30 06/11/21 23:10 Heparin Drip IV 13.57 unit/kg/hr .Q0M LYN 16 mls/hr Titration Protocol Per Protocol Sodium Chloride 1,000 mls @ 75 mls/hr 06/11/21 14:35 06/12/21 07:23 Sodium Chloride 0.9% IV 75 mls/hr .[id number] LYN Administration Insulin Glargine 5 unit 06/12/21 06:00 06/12/21 06:46 Insulin Glargine 100 Units/1 Ml SUBCUT 5 unit QAM LYN Administration Morphine Sulfate 2 mg 06/11/21 14:35 06/12/21 12:43 Morphine 4 Mg/Ml Sdv 1 Ml IVP 2 mg Q4H PRN Administration SEVERE PAIN Trazodone HCl 100 mg 06/11/21 21:00 06/11/21 21:25 Trazodone 100 Mg Tablet PO 100 mg BEDTIME LYN Administration PFSH Acute PFSH: Medical History Breast cancer right and left Diabetes mellitus DVT (deep venous thrombosis) s/p hysterectomy x 2 episodes in one year, last ~1982 Dyslipidemia HTN (hypertension), benign Uterine cancer Surgical History (Updated 06/11/21 @ 14:17 by Aron rOtiz MD) H/O total hysterectomy History of nephrectomy, right Hx of partial adrenalectomy S/P IVC filter Status post incision and drainage (02/14/21) Abdominal wall abscess Status post laparoscopic cholecystectomy Status post left breast lumpectomy Status post right breast lumpectomy Family History Mother , AT AGE OF 71 BONE CANCER Cancer Other Diabetes Social History Smoking and tobacco status: former smoker Alcohol intake: never Household members: spouse Marital status: Current occupational status: disabled Female Reproductive History: Date of last menstrual period: 12/24/20 Vitals/I&O/Wt Last Vital Signs Temp 97.6 F 06/12/21 11:15 Pulse 60 06/12/21 11:15 Resp 18 06/12/21 11:15 BP 136/81 06/12/21 11:15 Pulse Ox 98 06/12/21 11:15 06/11/21 06/12/21 06/12/21 22:59 06:59 14:59 Intake Total 157.12 / 157.12 707.5 / 707.5 Output Total 300 / 300 Balance -142.88 / -142.88 707.5 / 707.5 Weight last 48 hrs Weight 58.967 kg Physical Exam Narrative: EXAM NARRATIVE: Constitutional: Awake, comfortable HEENT: Wet mucosa, no jvp, non icteric Lungs: Bilaterally clear without discernible wheeze or rales in all lung zones CVS: S1 S2, no murmurs Abdo: Soft, BS ok Ext 4: Minimal edema, peripheral perfusion with no cyanosis, red leg erythema [facility] Neurological: Grossly non-focal Urinary Catheter Management^: Blake: Cath Placed During This Visit: yes Urinary Catheter Date of Insertion: 06/12/21 Urinary Catheter Time of Insertion: 10:52 Data Micro: Micro: Microbiology 06/11/21 15:13 Urine Culture - Pr eliminary Urine,Clean Catch A&P Additional A&P Information 1. Acute versus chronic kidney disease. We do not have any new lab data following her nephrectomy, her creatinine yesterday was recorded as 2 mg/dL, equating to eGFR 25 mL/min. We have now seen his slight decline in her renal function to a creatinine of 2.2 and eGFR 22 mL/min. It is likely that this is her new baseline renal function, with some slight fluctuation in renal function over the last 24 hours. Before we do an extensive evaluation okay to concern, I would simply like to recheck her labs this afternoon and tomorrow morning. I see no reason why this should be progressive dysfunction of the left kidney. Fractional excretion of sodium 1.1 but this is nondiagnostic in the setting of recent Maxide exposure. Continue IV hydration although she does not appear to be hypovolemic. Strict ins and outs No other diagnostic testing is required Dose medication for GFR less than 30 2. Chemistry Mild anion gap metabolic acidosis. Likely secondary to renal dysfunction, will check lactic acid levels and give some sodium bicarbonate p.o. 3. Hemodynamics Blood pressure currently looks stable, no need for additional antihypertensives at this time Thank you for consultation, as always it is a pleasure to follow these patients with you Exam and interview performed with aid of bedside RN using telemedicine Time spent 20 min inc > 50% of time in face to face counseling Matt Robles MD [facility] [phone] Coding Level of Care Code Acute Paint Line Operator for Mollyg Nadege
[2021-06-12] MEDS: sodium bicarbonate 650 mg Tablet PO ×2 (14:09→16:49)
[2021-06-12 14:53] LABS: Partial Thromboplastin Time 68.8 SECONDS (23.9-36.7)
--- NOTE | 2021-06-12 16:01 | PM.PN ---
Subjective Subjective: Interval history: This morning patient was seen, she is feeling well, her right lower extremity swelling has improved, less painful, she is moving her right lower extremity with some pain, but improved compared to yesterday, does tell me she is urinating less Vitals/I&O/Wt Last Vital Signs Temp 98.6 F 06/12/21 15:41 Pulse 70 06/12/21 15:41 Resp 20 H 06/12/21 15:41 BP 119/66 06/12/21 15:41 Pulse Ox 95 06/12/21 15:41 06/12/21 06/12/21 06/12/21 06:59 14:59 22:59 Intake Total 157.12 / 157.12 827.5 / 827.5 Output Total 300 / 300 Balance -142.88 / -142.88 827.5 / 827.5 Weight last 48 hrs Weight 58.967 kg Physical Exam Const: COMMON NORMALS: no acute distress and patient oriented x3 Resp: COMMON NORMALS: normal respiratory effort, No retractions, No use of accessory muscles and clear to auscultation bilaterally AUSCULTATION: clear to auscultation bilaterally Cardio: COMMON NORMALS: regular rate, regular rhythm, S1 normal heart sound present and S2 normal heart sound present RATE: regular rate RHYTHM: regular rhythm HEART SOUNDS: S1 normal heart sound present and S2 normal heart sound present GI: COMMON NORMALS: Normal to inspection, nondistended, normoactive bowel sounds present, Soft to palpation, non-tender and No hepatosplenomegaly present PALPATION: Yes Soft to palpation and Yes No hepatosplenomegaly present Extremity: NARRATIVE EXTREMITY EXAM: Right lower extremity erythema, swelling, from mid thigh down to ankle, improving Neuro: COMMON NORMALS: patient oriented x3 Psych: COMMON NORMALS: mental status grossly normal Urinary Catheter Management^: Blake: Cath Placed During This Visit: yes Urinary Catheter Date of Insertion: 06/12/21 Urinary Catheter Time of Insertion: 10:52 Data : 06/12/21 06:45 06/12/21 06:45 Micro: Microbiology 06/11/21 15:13 Urine Culture - Preliminary Urine,Clean Catch A&P Assessment and plan (1) DVT (deep venous thrombosis): -No complaints of chest pain, no complaints of shortness of breath -Etiology uncertain, was mobile after her surgery, as she has a history of renal cell carcinoma status post nephrectomy and partial adrenalectomy, -In addition there was initial concerns for compartment syndrome, however has good DP PT pulses, good range of motion, no exquisite tenderness, pain is minimal currently, unlikely to be compartment syndrome -Continue heparin drip -6-hour troponin 32.5 -Cardiac echocardiogram shows - 1. Normal left ventricular size, systolic function and wall thickness, with no regional wall motion abnormalities. Left ventricular ejection fraction is estimated at 65 %. Grade I diastolic dysfunction (abnormal relaxation filling pattern), normal to mildly elevated filling pressures. 2. No significant valvular abnormality. 3. Normal right ventricular size and systolic function. -PT OT -Monitor PTT, monitor hemoglobin -Protonix -Heparin for DVT prophylaxis -Full code NOAM, creatinine up to 2.2, likely secondary to nephrectomy, urine output has declined according to Patient Place, Blake monitor ins and out start gentle IV hydration, Type 2 diabetes mellitus, continue Lantus, low-dose sliding scale Hypertension, hold nephrotoxic medications History of breast cancer, hold anastrozole, possibly anastrozole can be associated with DVTs Pain control, morphine CT scan of the abdomen pelvis shows 1.4 cm stable hyperdense cortical lesion in the posterior left kidney is most likely a proteinaceous cyst. 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
[2021-06-12] MEDS: atorvastatin 40 mg Tablet 20 MG PO (16:49)
[2021-06-12] MEDS: heparin drip 25,000 UNIT/500 ML PREMIX 16 UNIT IV ×3 (16:50→20:33)
[2021-06-12 17:11] LABS: Anion Gap 15.3 (5-19); Blood Urea Nitrogen 50 mg/dL (8-23); Calcium 8.8 mg/dL (8.5-10.5); Carbon Dioxide 20 mmol/L (22-29); Chloride 103 mmol/L (98-107); Glucose 274 mg/dL (65-115); Osmolality Calculated 301 mOsm/kg (285-295); Potassium 4.3 mmol/L (3.5-5.1); Sodium 134 mmol/L (136-145)
[2021-06-12 20:09] LABS: Partial Thromboplastin Time 49.8 SECONDS (23.9-36.7)
[2021-06-12] MEDS: heparin 5,000 unit/mL INJ 1 mL IV (20:23)
[2021-06-12] MEDS: trazodone 100 mg Tablet PO (20:23)
[2021-06-12] MEDS: heparin drip 25,000 UNIT/500 ML PREMIX 17 UNIT IV (20:35)
[2021-06-13] MEDS: sodium chloride 0.9% 1,000 ML 75 ML IV (00:40)
[2021-06-13 02:20] LABS: Basophils % 0.3 %; Eosinophils # 0.2 10^3/uL (0.0-0.8); Eosinophils % 2.7 %; Hematocrit 32.9 % (37.0-47.0); Hemoglobin 10.6 g/dL (11.5-15.3); Lymphocytes # 1.4 10^3/uL (0.8-4.8); Lymphocytes % 21.8 %; Mean Corpuscular HGB Conc 32.2 g/dL (30.0-36.0); Mean Corpuscular Hemoglobin 28.6 pg (28.0-34.0); Mean Corpuscular Volume 88.9 fl (81-99); Monocytes # 0.5 10^3/uL (0.2-0.9); Monocytes % 7.8 %; Neutrophils # 4.24 10^3/uL (1.8-7.7); Neutrophils % 67.1 %; Nucleated Red Blood Cells % 0 %; Platelet Count 179 10^3/cmm (130-400); Red Cell Distribution Width 13.1 % (12.1-15.1); White Blood Count 6.3 10^3/uL (4.0-10.0)
[2021-06-13 02:38] LABS: Partial Thromboplastin Time 69.2 SECONDS (23.9-36.7)
[2021-06-13 02:47] LABS: Alanine Aminotransferase 48 U/L (0-33); Albumin Level 3.7 g/dL (3.5-5.2); Alkaline Phosphatase 122 IU/L (35-105); Anion Gap 16.3 (5-19); Aspartate Amino Transferase 42 U/L (0-32); Blood Urea Nitrogen 38 mg/dL (8-23); Calcium 8.8 mg/dL (8.5-10.5); Carbon Dioxide 19 mmol/L (22-29); Chloride 101 mmol/L (98-107); Globulin 2.9 g/dL (1.3-4.6); Glucose 277 mg/dL (65-115); Magnesium 1.6 mg/dL (1.7-2.3); Osmolality Calculated 293 mOsm/kg (285-295); Phosphorus 2.7 mg/dL (2.5-4.5); Potassium 4.3 mmol/L (3.5-5.1); Sodium 132 mmol/L (136-145); Total Bilirubin 0.2 mg/dL (0.15-1.2); Total Protein 6.6 g/dL (6.6-8.7)
[2021-06-13] MEDS: heparin drip 25,000 UNIT/500 ML PREMIX 16 UNIT IV (03:07)
[2021-06-13 04:00] VITALS: BP 125/77; PULSE 69; RESP 18; TEMP 36.8; O2SAT 96
[2021-06-13 06:09] LABS: Glucose Point of Care 287 mg/dL (70-110)
[2021-06-13] MEDS: insulin glargine 100 units/1 mL 5 UNIT SUBCUT (06:22)
--- NOTE | 2021-06-13 06:59 | PM.PN ---
Subjective Subjective: Interval history: feels better, good uop, dec edema. no n/v/f/c/lorenzo/d/sob Medications: Reviewed: Yes Medication Review Details: Current Medications Acetaminophen (Acetaminophen 325 Mg Tablet) 650 mg PO Q6H PRN PRN Reason: Mild/Mod Pain Or Temp >/= 101 Last Admin: 06/11/21 21:24 Dose: 650 mg Documented by: Atorvastatin Calcium (Atorvastatin 40 Mg Tablet) 20 mg PO QPM [facility] Last Admin: 06/12/21 16:49 Dose: 20 mg Documented by: Docusate Sodium (Docusate Sodium 100 Mg Capsule) 100 mg PO DAILY PRN PRN Reason: constipation Ergocalciferol (Ergocalciferol (Vitamin D2) 50,000 Unit Capsule) 50,000 unit PO Q7D [facility] Famotidine (Famotidine 20 Mg Tablet) 20 mg PO BID [facility] Last Admin: 06/12/21 16:50 Dose: 20 mg Documented by: Heparin Sodium (Beef Lung) (Heparin 5,000 Unit/Ml Inj 1 Ml) 0 unit IV PRN PRN; Protocol PRN Reason: Heparin weight-base protocol Last Admin: 06/12/21 20:23 Dose: 1,200 unit Documented by: Heparin Sodium/Sodium Chloride (Heparin Drip) 25,000 unit in 500 mls @ 0 mls/hr IV .Q0M [facility]; Protocol Last Titration: 06/13/21 03:23 Dose: 14.41 unit/kg/hr, 17 mls/hr Documented by: Sodium Chloride (Sodium Chloride 0.9%) 1,000 mls @ 75 mls/hr IV .[id number] [facility] Last Admin: 06/13/21 00:40 Dose: 75 mls/hr Documented by: Insulin Glargine (Insulin Glargine 100 Units/1 Ml) 5 unit SUBCUT QAM [facility] Last Admin: 06/13/21 06:22 Dose: 5 unit Documented by: Morphine Sulfate (Morphine 4 Mg/Ml Sdv 1 Ml) 2 mg IVP Q4H PRN PRN Reason: SEVERE PAIN Last Admin: 06/12/21 20:50 Dose: 2 mg Documented by: Naloxone HCl (Naloxone 0.4 Mg/Ml Sdv) 0.1 mg IVP Q2M PRN PRN Reason: OPIATERV Ondansetron HCl (Ondansetron 2 Mg/Ml Sdv 2 Ml) 4 mg IVP Q8H PRN PRN Reason: vomiting, or N/V if npo Paroxetine HCl (Paroxetine 20 Mg Tablet) 30 mg PO Q48H LYN Sodium Bicarbonate (Sodium Bicarbonate 650 Mg Tablet) 650 mg PO BID LYN Last Admin: 06/12/21 16:49 Dose: 650 mg Documented by: Trazodone HCl (Trazodone 100 Mg Tablet) 100 mg PO BEDTIME LYN Last Admin: 06/12/21 20:23 Dose: 100 mg Documented by: Vitals/I&O/Wt Last Vital Signs Temp 98.3 F 06/13/21 04:00 Pulse 69 06/13/21 04:00 Resp 18 06/13/21 04:00 BP 125/77 06/13/21 04:00 Pulse Ox 96 06/13/21 04:00 06/12/21 06/12/21 06/13/21 14:59 22:59 06:59 Intake Total 827.5 / 827.5 1172.667 / 2000.167 701.584 / 2701.751 Output Total 800 / 800 1450 / 2250 Balance 827.5 / 827.5 372.667 / 1200.167 -748.416 / 451.751 Weight last 48 hrs Weight 58.967 kg Physical Exam Narrative: EXAM NARRATIVE: in bed, NARD vss and noted heent- nc/at, eomi, anicteric neck- upple lungs clear heart- reg, no rub abd soft, nt, nd, + bs ext rt leg/ calf 1+ edema neuro- a,a, o x 3 Urinary Catheter Management^: Blake: Cath Placed During This Visit: yes Reason for Continuing Indwelling Catheter: Accurate Measurement of Urinary Output in Critically Ill Patients Urinary Catheter Date of Insertion: 06/12/21 Urinary Catheter Time of Insertion: 10:52 Data : 06/13/21 02:07 06/13/21 02:07 Micro: Microbiology 06/11/21 15:13 Urine Culture - Preliminary Urine,Clean Catch A&P Additional A&P Information 70 yr old female DVT, h/o right sided nephrectomy for renal cell CA, type 2 dm, htn, h/o breast ca 1. Acute kidney disease. -in January 2021- cr was 1.1 mg/dl -s/p radical nephrectomy on 05/03/21 -no hydronephrosis on CT scan -u/a trace blood, no protein, no wbc -this is likely due to thiazide and a nephrectomy in a DM patient -monitor chemistries Strict ins and outs No other diagnostic testing is required Dose medication for GFR less than 30 2. hyponatremia - hold thiazides- most common cause of hyponatremia in geriatric females 3. anemia- can be from post -op losses -full anemia eval per medicine 4. non AGMA - sodium bicarb 5. DM care 6. replete magnesium 7. DVT- if on NOAC- dose for decreased renal function Exam and interview performed with aid of bedside RN using telemedicine Time spent 30 min inc > 50% of time in face to face counseling Attestations Medical Necessity Statement*: per medicine Time Spent in Patient Care: 16 - 35 minutes Coding Level of Care Code Acute Conference Concierge for Kristi Light
[2021-06-13 08:00] VITALS: BP 129/80; PULSE 73; RESP 16; TEMP 36.9; O2SAT 94
[2021-06-13] MEDS: sodium bicarbonate 650 mg Tablet PO (08:45)
[2021-06-13] MEDS: famotidine 20 mg Tablet PO (08:45)
[2021-06-13] MEDS: PARoxetine 20 mg Tablet 30 MG PO (08:46)
[2021-06-13 08:53] VITALS: RESP 16
[2021-06-13] MEDS: morphine 4 mg/mL SDV 1 mL 2 MG IVP (08:53)
[2021-06-13 09:28] LABS: Partial Thromboplastin Time 64.2 SECONDS (23.9-36.7)
[2021-06-13 10:02] LABS: Ferritin 301 ng/mL (15-150); Iron 30 ug/dL (37-145)
[2021-06-13 10:16] LABS: Folate Level 7.3 ng/mL (4.8-37.3); Vitamin B12 413 pg/mL (232-1245)
[2021-06-13] MEDS: apixaban 5 mg Tablet PO (10:21)
[2021-06-13] MEDS: pantoprazole DR 40 mg Tablet PO (10:21)
[2021-06-13 11:40] VITALS: BP 121/79; PULSE 79; RESP 18; TEMP 36.9; O2SAT 91
[2021-06-13 11:44] VITALS: BP 110/71; PULSE 79; RESP 14; TEMP 36.9; O2SAT 92
--- NOTE | 2021-06-13 13:35 | PC.NURSE ---
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
[2021-06-13 14:24] VITALS: BP 110/71; PULSE 79; RESP 14; TEMP 36.9; O2SAT 92
--- NOTE | 2021-06-13 14:40 | PM.DCS ---
Discharge Providers Date of Admission: 06/11/21 13:18 Date of Discharge: June 13, 2021 Attending Provider at Admission: Aron Ortiz MD Attending Provider at Discharge: Aron Ortiz MD Primary Care Provider: Aron Ortiz MD Diagnoses at Discharge Discharge Diagnosis (1) DVT (deep venous thrombosis): Status: Acute (2) Insulin dependent type 2 diabetes mellitus: Status: Acute (3) HTN (hypertension), benign: Status: Chronic (4) Dyslipidemia: Status: Chronic (5) Breast cancer: Status: Chronic Permanent problem details: right and left (6) Acute kidney injury: Status: Acute Reason for Visit Reason for Visit: Pain in Right Leg, Swollen, sent by Dr Padron Course Hospital Course Amaris Larsen is a 70 year old female with a past medical history of insulin-dependent type 2 diabetes mellitus, history of chronic neuropathic pain, hypertension, dyslipidemia, recent history of right renal cell carcinoma status post nephrectomy and adrenalectomy at [facility] 4 months ago, who quit smoking 4 months ago, presents to [facility] due to complaints of sudden onset right lower extremity swelling. Patient was admitted to [facility] for right lower extremity DVT, etiology uncertain, possibly secondary to anastrozole, 6-hour troponin 32.5, no acute ST-T wave changes, echocardiogram showed no right heart strain, was managed initially with a heparin drip, ambulated without any significant symptomatology, swelling improved, discharged on low-dose Eliquis 5 mg twice daily due to creatinine of 2.0 we will have patient follow-up with primary care provider on Monday, if creatinine is less than 2 can continue Eliquis 5 mg twice daily, however if it continues to trend higher then she will likely need to be managed on a lower dose of Eliquis or required therapeutic Lovenox NOAM likely secondary to nephrectomy, now her baseline creatinine is possibly 2, nephrology was consulted, recommended outpatient follow-up with nephrology For her history of breast cancer, holding anastrozole, will have her follow-up with Dr. Tamez She also had a 1.4 cm hyperdense cortical lesion in the posterior left kidney, likely a proteinaceous cyst, but given her history as above we will have her follow-up with Dr. Maurer Her hemoglobin on discharge was 10.6, discharged on Protonix 40 twice daily, with Carafate, monitor hemoglobin as outpatient, if it continues to decrease we will have to refer for an EGD. Monitor for bloody black stools if so go to the emergency room Physical Exam Const: COMMON NORMALS: no acute distress and patient oriented x3 Resp: COMMON NORMALS: normal respiratory effort, No retractions, No use of accessory muscles and clear to auscultation bilaterally AUSCULTATION: clear to auscultation bilaterally Cardio: COMMON NORMALS: regular rate, regular rhythm, S1 normal heart sound present and S2 normal heart sound present RATE: regular rate RHYTHM: regular rhythm HEART SOUNDS: S1 normal heart sound present and S2 normal heart sound present GI: COMMON NORMALS: Normal to inspection, nondistended, normoactive bowel sounds present, Soft to palpation, non-tender and No hepatosplenomegaly present PALPATION: Yes Soft to palpation and Yes No hepatosplenomegaly present Extremity: COMMON NORMALS: no pedal edema Neuro: COMMON NORMALS: patient oriented x3 Psych: COMMON NORMALS: mental status grossly normal Urinary Catheter Management^: Blake: Cath Placed During This Visit: yes, but has since been removed by the nurse Reason for Continuing Indwelling Catheter: Decision to DC Catheter Urinary Catheter Date of Insertion: 06/12/21 Urinary Catheter Time of Insertion: 10:52 Date Urinary Catheter Removed: 06/13/21 Time Urinary Catheter Discontinued: 10:24 Discharge Data Data Completed and Pending: Completed Studies During Hospitalization Category Date Time Status CT abdomen pelvis wo con [id number] Rout ine Cat Scan 06/11/21 13:45 [place] [id number] Urgent Ultrasound 06/11/21 11:56 Completed CV. echo complete * [id number] Routine Ultrasound 06/11/21 14:35 Completed Pending at discharge Category Date Time Status Osmolality Urine Stat Lab 06/11/21 15:13 Received Urinalysis Routin e Lab 06/11/21 15:24 Ordered Labs from last 24 hours 06/13/21 06/13/21 06/13/21 08:37 05:59 02:07 WBC RBC Hgb Hct MCV MCH MCHC RDW Plt Count MPV Neut % (Auto) Lymph % (Auto) [place] % (Auto) Eos % (Auto) Baso % (Auto) Neut # (Auto) Lymph # (Auto) [place] # (Auto) Eos # (Auto) Baso # (Auto) Nucleated RBC % (a uto) Nucleated RBCs # APTT 64.2 H Sodium Potassium Chloride Carbon Dioxide Anion Gap BUN Creatinine GFR Calculation Glucose POC Glucose 287 H Calculated Osmolal ity Calcium Phosphorus Magnesium Iron Ferritin Total Bilirubin AST ALT Alkaline Phosphata se Total Protein Albumin Globulin Vitamin B12 Folate 7.3 06/13/21 06/13/21 06/13/21 02:07 02:07 02:07 WBC RBC Hgb Hct MCV MCH MCHC RDW Plt Count MPV Neut % (Auto) Lymph % (Auto) [place] % (Auto) Eos % (Auto) Baso % (Auto) Neut # (Auto) Lymph # (Auto) [place] # (Auto) Eos # (Auto) Baso # (Auto) Nucleated RBC % (a uto) Nucleated RBCs # APTT 69.2 H Sodium 132 L Potassium 4.3 Chloride 101 Carbon Dioxide 19 L Anion Gap 16.3 BUN 38 H Creatinine 2.0 H GFR Calculation Not Reportable Glucose 277 H POC Glucose Calculated Osmolal ity 293 Calcium 8.8 Phosphorus 2.7 Magnesium 1.6 L Iron 30 L Ferritin 301 H Total Bilirubin 0.2 AST 42 H ALT 48 H Alkaline Phosphata se 122 H Total Protein 6.6 Albumin 3.7 Globulin 2.9 Vitamin B12 413 Folate 06/13/21 06/12/21 06/12/21 02:07 19:47 16:00 WBC 6.3 RBC 3.70 L Hgb 10.6 L Hct 32.9 L MCV 88.9 MCH 28.6 MCHC 32.2 RDW 13.1 Plt Count 179 MPV 10.0 Neut % (Auto) 67.1 Lymph % (Auto) 21.8 [place] % (Auto) 7.8 Eos % (Auto) 2.7 Baso % (Auto) 0.3 Neut # (Auto) 4.24 Lymph # (Auto) 1.4 [place] # (Auto) 0.5 Eos # (Auto) 0.2 Baso # (Auto) 0.0 Nucleated RBC % (a uto) 0 Nucleated RBCs # 0.0 APTT 49.8 H Sodium 134 L Potassium 4.3 Chloride 103 Carbon Dioxide 20 L Anion Gap 15.3 BUN 50 H Creatinine 2.2 H GFR Calculation Not Reportable Glucose 274 H POC Glucose Calculated Osmolal ity 301 H Calcium 8.8 Phosphorus Magnesium Iron Ferritin Total Bilirubin AST ALT Alkaline Phosphata se Total Protein Albumin Globulin Vitamin B12 Folate 06/12/21 13:06 WBC RBC Hgb Hct MCV MCH MCHC RDW Plt Count MPV Neut % (Auto) Lymph % (Auto) [place] % (Auto) Eos % (Auto) Baso % (Auto) Neut # (Auto) Lymph # (Auto) [place] # (Auto) Eos # (Auto) Baso # (Auto) Nucleated RBC % (a uto) Nucleated RBCs # APTT 68.8 H Sodium Potassium Chloride Carbon Dioxide Anion Gap BUN Creatinine GFR Calculation Glucose POC Glucose Calculated Osmolal ity Calcium Phosphorus Magnesium Iron Ferritin Total Bilirubin AST ALT Alkaline Phosphata se Total Protein Albumin Globulin Vitamin B12 Folate Vitals: Last Vital Signs Temp 98.4 F 06/13/21 14:24 Pulse 79 06/13/21 14:24 Resp 14 06/13/21 14:24 BP 110/71 06/13/21 14:24 Pulse Ox 92 06/13/21 14:24 Discharge Plan Discharge Patient Disposition: Home Condition: Stable Prescriptions: New sodium bicarbonate 650 mg Tablet 650 mg PO BID 30 Days Qty: 60 RF: 0 pantoprazole 40 mg Tablet,Delayed Release (Dr/Ec) 40 mg PO BID 30 Days Qty: 60 RF: 0 Eliquis 5 mg Tablet 5 mg PO BID@0900,2100 30 Days Qty: 60 RF: 0 Continued (DME) lancets See Rx Instructions .Route .MEDSUPPLY Qty: 1 RF: 0 (DME) strips See Rx Instructions .Route .MEDSUPPLY Qty: 360 RF: 3 (DME) pen needle See Rx Instructions .Route .MEDSUPPLY Qty: 360 RF: 3 (DME) lancets 33 gauge misc See Rx Instructions .Route Qty: 360 RF: 3 (DME) blood sugar diagnostic Strip See Rx Instructions .Route Qty: 360 RF: 3 Lantus Solostar U-100 Insulin 100 unit/mL (3 mL) insulin pen 5 unit SUBCUT QAM Qty: 15 RF: 3 Novolog Flexpen U-100 Insulin 100 unit/mL (3 mL) insulin pen See Rx Instructions .ROUTE .COMPLEX Qty: 15 RF: 0 docusate sodium 100 mg capsule 100 mg PO DAILY PRN (Reason: constipation) 90 Days Qty: 90 RF: 0 ergocalciferol (vitamin D2) 1,250 mcg (50,000 unit) capsule 1,250 mcg PO Q7D Qty: 12 RF: 3 (DME) pen needle, diabetic [Pen Needle] 32 gauge x 5/32 needle See Rx Instructions .Route Qty: 360 RF: 3 pravastatin 40 mg tablet 40 mg PO QPM RF: 0 trazodone 100 mg tablet 100 mg PO BEDTIME RF: 0 paroxetine HCl 30 mg tablet 30 mg PO EVERY OTHER DAY RF: 0 Changed hydrocodone-acetaminophen 10-325 mg tablet 1 tab PO Q8H 30 Days Qty: 90 RF: 0 Discontinued anastrozole 1 mg tablet 1 mg PO QPM RF: 0 triamterene-hydrochlorothiazid 37.5-25 mg tablet 1 tab PO QAM RF: 0 Discharge Orders: Discharge Order (Routine); Ordered 06/13/21 Ordered By: Aron rOtiz Referrals: Fran Maurer MD [Physician] - 1 month (Please call Monday and schedule appointment for 1 month for Left kidney cyst) Aron Ortiz MD [Primary Care Provider] - (Please call Monday and schedule followup appointment for 1 week.) Naun Tamez MD [Hospitalist] - 2 weeks (Please call Monday and schedule appointment for 2 weeks. DVT, possibly secondary to anastrozole, history of breast cancer, right kidney cancer) Discharge Diet: Cardiac and Diabetic Discharge Activity: Resume usual activity Patient Instructions: Pantoprazole (By mouth), Sodium Bicarbonate (By mouth), Apixaban (By mouth), Deep Venous Thrombosis (DC), Opioid Safety Activity Restrictions/Additional Instructions: -For your DVT, I have discharged on a lower dose of Eliquis 5 mg twice daily, follow-up with DJ on Monday if creatinine is less than 2, can resume dose of Eliquis 5 mg twice daily, if higher, will likely need to switch to Lovenox or decrease dose of Eliquis to 2.5 mg twice daily -Please recheck hemoglobin in 1 week -Please follow-up with Dr. Tamez in 2 weeks -Please follow-up with Dr. Maurer -Please continue to be mobile -If you have worsening lower extremity swelling, or have sudden onset of shortness of breath or bloody cough go to emergency room immediately Discharge Attestations Time Spent in Discharge Care*: less than 30 min Quality Metrics Clinical Quality Measures During this hospital stay, did patient experience: VTE Contraindication to Overlap Therapy: Overlap treatment not indicated VTE Discharge Education: Education about anticoagulant therapy/Care Notes given Deep Vein Thrombosis/Pulmonary Embolism Present on Admission: Yes Coding Level of Care Code Acute Chg FW DC note Diagnoses DVT (deep venous thrombosis) I82.409 Insulin dependent type 2 diabetes mellitus E11.9; Z79.4 HTN (hypertension), benign I10 Dyslipidemia E78.5 Breast cancer C50.919 Acute kidney injury N17.9
--- NOTE | 2021-06-14 15:28 | PC.SOCIAL ---
discharge follow up call made. spoke with pts , he had made her appointment with Dr. Ortiz for -. I let pts know that Dr. Maurer's office will be calling with appointment date and time for follow up. I spoke with Dr. Tamez's office and pt will be a new patient visit, they need patient to sign medical release forms to get info from previous oncologist so they can see patient. I gave this info to pts and he will call Dr. Tamez's office. Patient is taking new medications as prescribed.
[2021-06-14 15:53] LABS: Osmolality Urine 445 mOsm/kg (50-1200)
== END 2021-06-13 14:25 | disposition home or self-care (01) | DRG 300 ==
LOC: ER 13:09 → MEDSURG 16:13
PROVIDERS: Internal Medicine Nephrology; Admitting Provider Family Medicine; Emergency Provider Emergency Medicine; PCP Family Medicine; Visit Provider Family Medicine
DX: I82.411 Acute embolism and thrombosis of right femoral vein (principal); C64.1 Malignant neoplasm of right kidney, except renal pelvis; E89.6 Postprocedural adrenocortical (-medullary) hypofunction; N17.9 Acute kidney failure, unspecified; E87.2 Acidosis; I82.431 Acute embolism and thrombosis of right popliteal vein; I82.441 Acute embolism and thrombosis of right tibial vein; I82.451 Acute embolism and thrombosis of right peroneal vein; E11.42 Type 2 diabetes mellitus with diabetic polyneuropathy; I10 Essential (primary) hypertension; Z90.5 Acquired absence of kidney; C50.912 Malignant neoplasm of unspecified site of left female breast; C50.911 Malignant neoplasm of unspecified site of right female breast; Z86.718 Personal history of other venous thrombosis and embolism; E78.5 Hyperlipidemia, unspecified; Z85.42 Personal history of malignant neoplasm of other parts of uterus; Z95.828 Presence of other vascular implants and grafts; Z87.891 Personal history of nicotine dependence; D64.9 Anemia, unspecified; N28.9 Disorder of kidney and ureter, unspecified; Z79.4 Long term (current) use of insulin
CPT/HCPCS: 36415; 36416; 51702; 74176; 80048; 80053; 82274; 82436; 82550; 82570; 82607; 82728; 82746; 82962; 83540; 83735; 83880; 83935; 84100; 84300; 84484; 85025; 85610; 85730; 85999; 87086; 93005; 93306; 93971; 94664; 96372; 96374; 96375; 97161; 97165; 97530; 99285; J1644; J1815; J2270; J7030

== ENCOUNTER 2021-06-17 09:12 | Outpatient (CLI) | payer MEDICARE, SELFPAY ==
[2021-06-17 10:37] LABS: Alanine Aminotransferase 22 U/L (0-33); Albumin Level 3.6 g/dL (3.5-5.2); Alkaline Phosphatase 103 IU/L (35-105); Anion Gap 16.5 (5-19); Aspartate Amino Transferase 12 U/L (0-32); Blood Urea Nitrogen 27 mg/dL (8-23); Calcium 9.4 mg/dL (8.5-10.5); Carbon Dioxide 22 mmol/L (22-29); Chloride 102 mmol/L (98-107); Globulin 3.4 g/dL (1.3-4.6); Glucose 255 mg/dL (65-115); Osmolality Calculated 296 mOsm/kg (285-295); Potassium 4.5 mmol/L (3.5-5.1); Sodium 136 mmol/L (136-145); Total Bilirubin 0.2 mg/dL (0.15-1.2)
== END 2021-06-17 09:13 | disposition home or self-care (01) ==
PROVIDERS: PCP Family Medicine; Visit Provider Family Medicine
DX: I82.409 Acute embolism and thrombosis of unspecified deep veins of unspecified lower extremity (principal)
CPT/HCPCS: 36415; 80053

== ENCOUNTER → 2021-07-05 10:09 | Outpatient (BNVA) | payer MEDICARE, SELFPAY | PROVIDERS: PCP Family Medicine; Visit Provider Family Medicine | DX: K59.00 Constipation, unspecified (principal) | CPT/HCPCS: 80053 ==

== ENCOUNTER → 2021-08-23 12:10 | Outpatient (BNVA) | payer MEDICARE, SELFPAY | PROVIDERS: PCP Family Medicine; Visit Provider Family Medicine | DX: N18.9 Chronic kidney disease, unspecified (principal) | CPT/HCPCS: 80048 ==

== ENCOUNTER 2021-11-22 09:40 | Outpatient (CLI) | payer MEDICARE, SELFPAY ==
--- NOTE | 2021-11-22 10:15 | USCV_ITS ---
Amaris Larsen Age: 71 Gender: F : 1950 Exam Date: 11/22/2021 10:19 Ordering Phys: Aron Ortiz MD Technologist: Eber Sandhu [place] [facility] [place]: SCREENING. SMOKER HISTORY: Diameter (cm) AP x Transverse x Length Velocity (cm/s) Waveform Prox Aorta: 2.14 x 2.38 x 68.20 Mid Aorta: 1.38 x 1.63 x 43.80 Distal Aorta: 1.09 x 1.60 x 81.00 Right Iliac Prox: 0.61 x 1.01 x 155.40 Left Iliac Prox: 0.58 x 0.93 x 144.60 Stent Prox Landing x x Aneurysmal Sac Max x x Lt Lat Sac Dim Rt Lat Sac Dim Stent Dist Landing x x Right Iliac Stent x x Left Iliac Stent x x Right Renal Art Left Renal Art FINDINGS: CONCLUSIONS No evidence of abdominal aortic or bilateral iliac aneurysm. Carloz Baer MD (Electronically Signed) Final Date: 22 November 2021 15:01 S
--- NOTE | 2021-11-22 11:00 | USCV_ITS ---
Amaris Larsen Age: 71 Gender: F : 1950 Exam Date: 11/22/2021 10:37 Ordering Phys: Aron Ortiz MD Technologist: DALE Exam Location: [facility] [place] Indication: dvt HISTORY: Patient is on blood thinner. History of dvt in the right leg. PROCEDURES: Venous duplex imaging was performed in bilateral lower extremities. The following venous structures were evaluated: common femoral vein, profunda vein, proximal portion of the greater saphenous vein, superficial femoral vein, and the popliteal vein. In addition, the posterior tibial and peroneal trunk were evaluated. Serial compression, augmentation maneuvers, and spectral Doppler flow evaluation were performed. FINDINGS: There appears to be non occlusive dvt in the left popliteal and peroneal veins. Unable to determine if this is old or new clot. All other veins examined appear to be free of thrombus at this time. CONCLUSIONS Comparison 06/22 RightLE Nonocclusive DVT in the left popliteal and peroneal veins. This has a chronic appearance. No prior left leg imaging for comparison. Remainder of LLE veins patent. Normal Right lower extremity veins. Carloz Baer MD (Electronically Signed) Final Date: 22 November 2021 14:57 S
== END 2021-11-22 09:41 | disposition home or self-care (01) ==
LOC: RAD 09:42
PROVIDERS: PCP Family Medicine; Visit Provider Family Medicine
DX: F17.200 Nicotine dependence, unspecified, uncomplicated (principal); I82.452 Acute embolism and thrombosis of left peroneal vein; I82.432 Acute embolism and thrombosis of left popliteal vein
CPT/HCPCS: 76706; 93970

== ENCOUNTER → 2021-12-01 11:45 | Outpatient (BNVA) | payer MEDICARE, SELFPAY | PROVIDERS: PCP Family Medicine; Visit Provider Family Medicine | DX: E11.9 Type 2 diabetes mellitus without complications (principal); Z79.4 Long term (current) use of insulin; Z51.81 Encounter for therapeutic drug level monitoring; G89.29 Other chronic pain; N18.9 Chronic kidney disease, unspecified; I82.401 Acute embolism and thrombosis of unspecified deep veins of right lower extremity; M79.2 Neuralgia and neuritis, unspecified; I10 Essential (primary) hypertension; E78.5 Hyperlipidemia, unspecified | CPT/HCPCS: 80307 ==

== ENCOUNTER → 2022-01-11 11:18 | Outpatient (BNVA) | payer MEDICARE, SELFPAY | PROVIDERS: PCP Family Medicine; Visit Provider Family Medicine | DX: G89.29 Other chronic pain (principal); Z85.3 Personal history of malignant neoplasm of breast; Z87.891 Personal history of nicotine dependence; Z79.4 Long term (current) use of insulin; Z12.2 Encounter for screening for malignant neoplasm of respiratory organs; Z12.39 Encounter for other screening for malignant neoplasm of breast; N18.9 Chronic kidney disease, unspecified; E11.22 Type 2 diabetes mellitus with diabetic chronic kidney disease; I12.9 Hypertensive chronic kidney disease with stage 1 through stage 4 chronic kidney disease, or unspecified chronic kidney disease | CPT/HCPCS: 80053; 83036; 84443; 85025 ==

== ENCOUNTER 2022-05-30 13:12 | Outpatient (CLI) | payer MEDICARE, SELFPAY ==
--- NOTE | 2022-05-30 13:30 | CT_ITS ---
WS: [id number] LDCT LUNG CANCER SCREENING HISTORY: Z87.891 - Personal history of nicotine dependence TECHNIQUE: Axial imaging performed from the apices to 1 cm below the costophrenic angles. Coronal and sagittal reformats are submitted with axial MIP series. All CT scans at [facility] use at least one of these dose optimization techniques: automated exposure control; mA and/or kV adjustment per patient size (includes targeted exams where dose is matched to clinical indication); or iterativ e reconstruction. DLP: 75.20 mGy.cm DIvol: Mean CTDIvol: 1.60 (mGy) COMPARISON: None available. Diagnostic quality: Satisfactory Lung Nodules: 4 mm slightly spiculated nodule at the LEFT lung base, image 180. Additional pleural th ickening with tethering and bronchiectasis in the RIGHT middle lobe. No change since 02/13/2021. Mild pleural thickening with peripheral interstitial opacifications bilaterally in the upper lung mesa. No endobronchial lesion. Lungs: Hyperexpansion from emphysema. Heart: Normal size heart. Small amount of pericardial thickening. Other findings: Mildly dilated pulmonary artery to 3.5 cm. Mild atherosclerosis aorta. Mild aneurysma l dilatation ascending aorta to 4.2 cm. Postsurgical changes in each breast. History of prior lumpect omies. LEFT adrenal heterogeneous mass with elevated Hounsfield units. Very similar to the study of . Mass has decreased in size. Prior cholecystectomy and RIGHT nephrectomy. CT/CT lung screening [id number] IMPRESSION: LUNG-RADS: 3S-Probably Benign with Significant Findings FOLLOW UP: 6 Month LDCT OTHER FINDINGS (S MODIFIER): Complex heterogeneous mass associated the LEFT adr enal gland. Mass was present on the prior study from 02/13/2021 and slightly dec reased in size.
== END 2022-05-30 13:13 | disposition home or self-care (01) ==
LOC: RAD 13:14
PROVIDERS: PCP Family Medicine; Visit Provider Family Medicine
DX: Z12.2 Encounter for screening for malignant neoplasm of respiratory organs (principal); Z87.891 Personal history of nicotine dependence
CPT/HCPCS: 71271

== ENCOUNTER → 2022-06-28 09:57 | Outpatient (BNVA) | payer MEDICARE, SELFPAY | PROVIDERS: PCP Family Medicine; Visit Provider Family Medicine | DX: B37.9 Candidiasis, unspecified (principal); G89.29 Other chronic pain; N18.9 Chronic kidney disease, unspecified; E11.9 Type 2 diabetes mellitus without complications; R91.1 Solitary pulmonary nodule; R07.0 Pain in throat | CPT/HCPCS: 80053; 80061; 83036; 84443; 85025 ==

== ENCOUNTER → 2022-07-07 12:49 | Outpatient (BNVA) | payer MEDICARE, SELFPAY | PROVIDERS: PCP Family Medicine; Visit Provider Internal Medicine Pulmonary Disease | DX: R91.1 Solitary pulmonary nodule (principal); T78.40XA Allergy, unspecified, initial encounter; J43.9 Emphysema, unspecified; Z12.2 Encounter for screening for malignant neoplasm of respiratory organs; Z87.891 Personal history of nicotine dependence; I82.401 Acute embolism and thrombosis of unspecified deep veins of right lower extremity; Z90.5 Acquired absence of kidney; Z85.528 Personal history of other malignant neoplasm of kidney; Z85.3 Personal history of malignant neoplasm of breast | CPT/HCPCS: 36415; 82785; 86003; 99204 ==

== ENCOUNTER 2022-12-15 21:33 | Inpatient (IN) | payer MEDICARE, SELFPAY ==
--- NOTE | 2022-12-15 21:34 | XRR_ITS ---
PROCEDURE INFORMATION: Exam: XR Chest Exam date and time: 12/15/2022 10:14 PM Age: 72 years old Clinical indication: Other: CVA TECHNIQUE: Imaging protocol: Radiologic exam of the chest. Views: 1 view. COMPARISON: CT lung screening [id number] 05/30/2022 1:30 PM FINDINGS: Lungs: Mild increase interstitial prominence in the inferior peripheral lungs is likely mild scarring. No acute airspace process is seen. Pleural spaces: Unremarkable. No pleural effusion. No pneumothorax. Heart/Mediastinum: Unremarkable. No cardiomegaly. Bones/joints: Unremarkable. Soft tissues: Surgical clips are seen in the lateral chest lopez. XR/XR chest 1V portable [id number] IMPRESSION: No acute cardiopulmonary abnormality.
--- NOTE | 2022-12-15 21:34 | CTR_ITS ---
PROCEDURE INFORMATION: Exam: CT Head Without Contrast Exam date and time: 12/15/2022 9:35 PM Age: 72 years old Clinical indication: Stroke-like symptoms; Left facial droop; Additional info: Left facial droop. Lkw time of 8pm TECHNIQUE: Imaging protocol: Computed tomography of the head without contrast. Radiation optimization: All CT scans at this facility use at least one of these dose optimization techniques: automated exposure control; mA and/or kV adjustment per patient size (includes targeted exams where dose is matched to clinical indication); or iterative reconstruction. Other technique: STROKE PROTOCOL was implemented. REPORTING DATA: Count of CT and Cardiac NM exams in prior 12 months: This patient has received 2 known CTs and 0 known cardiac nuclear medicine studies in the 12 months prior to the current study. COMPARISON: No relevant prior studies available. RADIATION DOSE METRICS: Total DLP (mGy-cm): 941.98 FINDINGS: Brain: Mild atrophy and mild white matter chronic microvascular changes are noted. No hemorrhage or evidence of acute infarction. Cerebral ventricles: No ventriculomegaly. Paranasal sinuses: Visualized sinuses are unremarkable. No fluid levels. Mastoid air cells: Visualized mastoid air cells are well aerated. Bones/joints: Unremarkable. No acute fracture. Soft tissues: Unremarkable. CT/CT head thrombolytic [id number] IMPRESSION: No acute intracranial abnormality. ASSESSMENT: ASPECTS ([place] Stroke Program Early CT Score) is 10.
--- NOTE | 2022-12-15 21:38 | CTR_ITS ---
PROCEDURE INFORMATION: Exam: CTA Head With Contrast, Arteriography Exam date and time: 12/15/2022 9:39 PM Age: 72 years old Clinical indication: Stroke-like symptoms; Left facial droop; Additional info: CVA TECHNIQUE: Imaging protocol: Computed tomographic angiography of the head with contrast. Exam focused on the arteries. 3D rendering (Not supervised by radiologist): MIP and/or 3D reconstructed images were created by the technologist. Radiation optimization: All CT scans at this facility use at least one of these dose optimization techniques: automated exposure control; mA and/or kV adjustment per patient size (includes targeted exams where dose is matched to clinical indication); or iterative reconstruction. Contrast material: OMNI 350; Contrast volume: 100 ml; Contrast route: INTRAVENOUS (IV); REPORTING DATA: Count of CT and Cardiac NM exams in prior 12 months: This patient has received 2 known CTs and 0 known cardiac nuclear medicine studies in the 12 months prior to the current study. COMPARISON: CT head thrombolytic [id number] 12/15/2022 9:35 PM RADIATION DOSE METRICS: Total DLP (mGy-cm): 465.61 FINDINGS: ANTERIOR CIRCULATION: Right internal carotid artery: Intracranial segment is patent with no significant stenosis. No aneurysm. Right middle cerebral artery: No occlusion or significant stenosis. No aneurysm. Right anterior cerebral artery: No occlusion or significant stenosis. No aneurysm. Left internal carotid artery: Intracranial segment is patent with no significant stenosis. No aneurysm. Left middle cerebral artery: No occlusion or significant stenosis. No aneurysm. Left anterior cerebral artery: No occlusion or significant stenosis. No aneurysm. POSTERIOR CIRCULATION: Right vertebral artery: No occlusion or significant stenosis. No aneurysm. Left vertebral artery: No occlusion or significant stenosis. No aneurysm. Basilar artery: No occlusion or significant stenosis. No aneurysm. Right posterior cerebral artery: No occlusion or significant stenosis. No aneurysm. Left posterior cerebral artery: No occlusion or significant stenosis. No aneurysm. IMPRESSION: No large vessel stenosis or occlusion. PROCEDURE INFORMATION: Exam: CTA Neck With Contrast Exam date and time: 12/15/2022 9:39 PM Age: 72 years old Clinical indication: Stroke-like symptoms; Left facial droop; Additional info: CVA TECHNIQUE: Imaging protocol: Computed tomographic angiography of the neck with contrast. 3D rendering (Not supervised by radiologist): MIP and/or 3D reconstructed images were created by the technologist. Radiation optimization: All CT scans at this facility use at least one of these dose optimization techniques: automated exposure control; mA and/or kV adjustment per patient size (includes targeted exams where dose is matched to clinical indication); or iterative reconstruction. Contrast material: OMNI 350; Contrast volume: 100 ml; Contrast route: INTRAVENOUS (IV); REPORTING DATA: Count of CT and Cardiac NM exams in prior 12 months: This patient has received 2 known CTs and 0 known cardiac nuclear medicine studies in the 12 months prior to the current study. COMPARISON: CT head thrombolytic [id number] 12/15/2022 9:35 PM RADIATION DOSE METRICS: Total DLP (mGy-cm): 465.61 FINDINGS: Right common carotid artery: No stenosis. No dissection or occlusion. Right internal carotid artery: Moderate stenosis of the proximal right ICA is noted. Right external carotid artery: No occlusion or stenosis of the origin. Left common carotid artery: No stenosis. No dissection or occlusion. Left internal carotid artery: No stenosis of the extracranial segment. No dissection or occlusion. Left external carotid artery: No occlusion or stenosis of the origin. Right vertebral artery: No stenosis. No dissection or occlusion. Left vertebral artery: No stenosis. No dissection or occlusion. Soft tissues: Surgical clips are seen in bilateral axillary regions. Bones/joints: Moderate cervical spine spondylosis is noted. No acute fracture is seen. Lungs: Mild scarring is present in anterior bilateral upper lobes. CT/CT angio headneck* [id number] IMPRESSION: Moderate stenosis of the proximal right ICA. REFERENCES: NASCET CRITERIA. The degree of stenosis in the cervical segment of the internal carotid artery is based on NASCET criteria. Normal is no stenosis. Mild is less than 50% stenosis. Moderate is 50-69% stenosis. Severe is 70% to 99% stenosis. Total occlusion is no detectable patent lumen.
--- NOTE | 2022-12-15 21:50 | ECG_ITS ---
[facility] Test Date: 2022-12-15 Pat Name: Amaris Larsen Department: Room: Gender: Female Emergency Room Technician: : 1950 Requested By: Raven Carrasquillo Order Number: [id number] Reading MD: JOE BRADFORD Measurements Intervals [place] Rate: 85 P: 127 KS: 174 QRS: -24 QRSD: 102 T: 134 QT: 379 QTc: 453 Interpretive Statements SINUS RHYTHM POSSIBLE LEFT ATRIAL ENLARGEMENT [-0.1mV P-WAVE IN V1/V2] INDETERMINATE AXIS PATTERN CONSISTENT WITH PULMONARY DISEASE MODERATE ST DEPRESSION [0.05+ mV ST DEPRESSION] ABNORMAL QRS-T ANGLE [QRS-T AXIS DIFFERENCE > 60] Compared to ECG 06/12/2021 05:25:42 Indeterminate axis now present ST (T wave) deviation now present Electronically Signed On 12-17-2022 23:38:53 CDT by JOE BRADFORD [email or web address]
--- NOTE | 2022-12-15 21:56 | W.ED.NEUROSD ---
HPI - Neuro Symptoms/Deficit General: Chief Complaint: Altered Mental Status Stated Complaint: STROKE Time Seen by Provider: 12/15/22 21:34 Source: patient and EMS Mode of arrival: EMS Limitations: no limitations History of Present Illness: 72-year-old female who per EMS family states at 8:00 tonight she started having slurred speech along with confusion and right-sided weakness when EMS states they arrived they states she was having hard time lifting her right arm and her right leg and she was slurring her words and was very aphasic the symptoms of seem to resolved she has a mild facial droop and some mild dysarthria but otherwise she is able to speak answer my questions appropriately she able to move all extremities denies any headache. Associated symptoms: Deny chest pain, nausea or vomiting Review of Systems Const: Denies: fever(s), chills, body aches or change in appetite Eyes: Denies: blurry vision or eye discomfort ENMT: Denies: throat pain or dental pain Card: Denies: chest pain Resp: Denies: dyspnea GI: Denies: abdominal pain, nausea, vomiting or diarrhea : Denies: dysuria Musc: Denies: neck pain or back pain Skin/Breast: Denies: rash Neuro: Reports: weakness in extremities, confusion and Slurred speech present Psych: Denies: depression Joe/Lymph: Denies: easy bruising All/Imm: Denies: urticaria PFSH ED PFSH: Medical History Breast cancer right and left Constipation Diabetes mellitus DVT (deep venous thrombosis) s/p hysterectomy x 2 episodes in one year, last ~1982 Dyslipidemia HTN (hypertension), benign Smoker Uterine cancer Surgical History H/O total hysterectomy History of nephrectomy, right Hx of partial adrenalectomy S/P IVC filter Status post incision and drainage (02/14/21) Abdominal wall abscess Status post laparoscopic cholecystectomy Status post left breast lumpectomy Status post right breast lumpectomy Family History Mother , AT AGE OF 71 BONE CANCER Cancer Other Diabetes Social History Smoking and tobacco status: never smoked Quit status (tobacco): has quit using tobacco Year quit tobacco: January 2021 Former quit date comment: 1ppd x 50 years Alcohol intake: never Household members: spouse Marital status: Current occupational status: disabled NIH stroke score NIHSS: Level Of Consciousness - 1a: 0 Level Of Consciousness Questions - 1b: Both Correct Level Of Consciousness Commands - 1c: Both Correct Best Gaze - 2: Normal Visual Gilliam - 3: No Visual Loss Facial Palsy - 4: Minor Paralysis Motor Arm Right - 5: No Drift Motor Arm Left - 5: No Drift Motor Leg Right - 6: No Drift Motor Leg Left - 6: No Drift Limb Ataxia - 7: Absent Sensory - 8: Normal Best Language - 9: No Aphasia Dysarthia - 10: Mild/Moderate Dysarthia Extinction And Inattention - 11: 0 Score: Total Score: 2 Physical Exam Const: COMMON NORMALS: no acute distress, patient oriented x3 and healthy appearing HENMT: COMMON NORMALS: normocephalic and atraumatic HEAD & SCALP: normocephalic and atraumatic Eye: COMMON NORMALS: Equal, round and reactive pupils present and EOMs intact bilaterally PUPIL: Yes Equal, round and reactive pupils present Neck/C-Spine: COMMON NORMALS: full ROM and supple Chest: COMMONS NORMALS: normal inspection of the chest and normal palpation of entire chest wall Resp: COMMON NORMALS: normal respiratory effort, No retractions, No use of accessory muscles and clear to auscultation bilaterally AUSCULTATION: clear to auscultation bilaterally Cardio: COMMON NORMALS: regular rate, regular rhythm and No murmurs present (Cardio) RATE: regular rate RHYTHM: regular rhythm GI: COMMON NORMALS: Normal to inspection, nondistended, normoactive bowel sounds present, Soft to palpation, non-tender and no masses PALPATION: Yes Soft to palpation Extremity: COMMON NORMALS: normal to inspection and full ROM Neuro: COMMON NORMALS: patient oriented x3, moves all extremities and no focal motor deficits Psych: COMMON NORMALS: mental status grossly normal, Normal thought process present and cooperative THOUGHT PROCESS: Normal thought process present Skin: COMMON NORMALS: no rashes or lesions noted and no wounds GENERAL SKIN EXAM: no rashes or lesions noted Course Vital Signs: Vital signs: Vital Signs Temperature 98.3 F 12/15/22 22:02 Pulse Rate 65 12/15/22 23:23 Respiratory Rate 14 12/15/22 23:23 Blood Pressure 101/45 12/15/22 23:23 Pulse Oximetry 94 12/15/22 23:23 Oxygen Delivery Me thod 12/15/22 23:23 MDM - Neuro Symptoms/Deficit Medical Decision Making Patient presents here with a TIA her symptoms have since resolved NIH currently now is a 0 she is not a tPA candidate due to the resolution of her symptoms along with being on Eliquis head CT CT are normal spoke to hospitalist will admit for observation. Lab Data 12/15/22 22:10 12/15/22 22:10 Radiology Impressions Chest X-Ray 12/15/22 21:34 IMPRESSION: No acute cardiopulmonary abnormality. Head CT 12/15/22 21:34 IMPRESSION: No acute intracranial abnormality. ASSESSMENT: ASPECTS ([place] Stroke Program Early CT Score) is 10. Head/Neck CTA 12/15/22 21:38 IMPRESSION: Moderate stenosis of the proximal right ICA. REFERENCES: NASCET CRITERIA. The degree of stenosis in the cervical segment of the internal carotid artery is based on NASCET criteria. Normal is no stenosis. Mild is less than 50% stenosis. Moderate is 50-69% stenosis. Severe is 70% to 99% stenosis. Total occlusion is no detectable patent lumen. Laboratory Results WBC 6.3 10^3/uL (4.0-10.0) 12/15/22 22:10 RBC 4.42 10^6/uL (4.1-5.3) 12/15/22 22:10 Hgb 12.4 g/dL (11.5-15.3) 12/15/22 22:10 Hct 38.4 % (37.0-47.0) 12/15/22 22:10 MCV 86.9 fl (81-99) 12/15/22 22:10 MCH 28.1 pg (28.0-34.0) 12/15/22 22:10 MCHC 32.3 g/dL (30.0-36.0) 12/15/22 22:10 RDW 13.9 % (12.1-15.1) 12/15/22 22:10 Plt Count 247 10^3/cmm (130-400) 12/15/22 22:10 MPV 9.8 fL (7.4-10.4) 12/15/22 22:10 Neut % (Auto) 66.7 % 12/15/22 22:10 Lymph % (Auto) 23.3 % 12/15/22 22:10 Rincon % (Auto) 5.2 % 12/15/22 22:10 Eos % (Auto) 4.0 % 12/15/22 22:10 Baso % (Auto) 0.5 % 12/15/22 22:10 Neut # (Auto) 4.22 10^3/uL (1.8-7.7) 12/15/22 22:10 Lymph # (Auto) 1.5 10^3/uL (0.8-4.8) 12/15/22 22:10 [place] # (Auto) 0.3 10^3/uL (0.2-0.9) 12/15/22 22:10 Eos # (Auto) 0.3 10^3/uL (0.0-0.8) 12/15/22 22:10 Baso # (Auto) 0.0 10^3/uL (0.0-0.1) 12/15/22 22:10 Nucleated RBC % (auto) 0 % 12/15/22 22:10 Nucleated RBCs # 0.0 /100WBC 12/15/22 22:10 PT 17.10 SECONDS (12.1-14.9) H 12/15/22 22:10 INR 1.35 (0.8-1.2) H 12/15/22 22:10 APTT 34.0 SECONDS (23.9-36.7) 12/15/22 22:10 Sodium 136 mmol/L (136-145) 12/15/22 22:10 Potassium 4.3 mmol/L (3.5-5.1) 12/15/22 22:10 Chloride 99 mmol/L (98-107) 12/15/22 22:10 Carbon Dioxide 23 mmol/L (22-29) 12/15/22 22:10 Anion Gap 18.3 (5-19) 12/15/22 22:10 BUN 32 mg/dL (8-23) H 12/15/22 22:10 Creatinine 1.7 mg/dL (0.5-0.9) H 12/15/22 22:10 GFR Calculation Not Reportable 12/15/22 22:10 Glucose 324 mg/dL (65-115) H 12/15/22 22:10 POC Glucose 362 mg/dL (70-110) H 12/15/22 21:52 Calculated Osmolality 301 mOsm/kg (285-295) H 12/15/22 22:10 Calcium 9.4 mg/dL (8.5-10.5) 12/15/22 22:10 Total Bilirubin 0.2 mg/dL (0.15-1.2) 12/15/22 22:10 AST 15 U/L (0-32) 12/15/22 22:10 ALT 16 U/L (0-33) 12/15/22 22:10 Alkaline Phosphatase 118 U/L (35-105) H 12/15/22 22:10 Total Protein 7.1 g/dL (6.6-8.7) 12/15/22 22:10 Albumin 3.7 g/dL (3.5-5.2) 12/15/22 22:10 Globulin 3.4 g/dL (1.3-4.6) 12/15/22 22:10 Urine Color Colorless (Yellow) 12/15/22 22:25 Urine Appearance Clear (CLEAR) 12/15/22 22:25 Urine pH 5 (5-7) 12/15/22 22:25 Ur Specific Casar 1.010 (1.005-1.030) 12/15/22 22:25 Urine Protein 1+ (Negative) H 12/15/22 22:25 Urine Glucose (UA) 4+ (Normal) H 12/15/22 22:25 Urine Ketones Negative (Negative) 12/15/22 22:25 Urine Blood Neg (Negative) 12/15/22 22:25 Urine Nitrate Negative (Negative) 12/15/22 22:25 Urine Bilirubin Neg (Negative) 12/15/22 22:25 Urine Urobilinogen Norm mg/dL (Negative) 12/15/22 22:25 Ur Leukocyte Esterase Negative (Negative) 12/15/22 22:25 Urine RBC 0-4 /hpf (0-2) H 12/15/22 22:25 Urine WBC 0-4 /hpf (0-5) H 12/15/22 22:25 Ur Squamous Epith Cells 0-4 /hpf (0-5) H 12/15/22 22:25 Amorphous Sediment Not Reportable 12/15/22 22:25 Urine Bacteria Trace /hpf (NONE) 12/15/22 22:25 Urine Opiates Screen Positive ng/mL (Negative) H 12/15/22 22:25 Ur Barbiturates Screen Negative ng/mL (Negative) 12/15/22 22:25 Ur Phencyclidine Scrn Negative ng/mL (Negative) 12/15/22 22:25 Ur Amphetamines Screen Negative ng/mL (Negative) 12/15/22 22:25 U Benzodiazepines Scrn Negative ng/mL (Negative) 12/15/22 22:25 Urine Cocaine Screen Negative ng/mL (Negative) 12/15/22 22:25 U Marijuana (THC) Screen Negative ng/mL (Negative) 12/15/22 22:25 EKG Data EKG 1: I personally reviewed and interpreted this EKG as follows: EKG interpretation date: 12/15/22 EKG interpretation time: 21:50 Interpretation: nsr hr [address] or t wave abnormalities qrs 102 qtc 422 Discharge Plan Discharge Patient Disposition: Admitted As Inpatient Clinical Impression: Brain TIA Condition: Stable Prescriptions: No Action docusate sodium 100 mg capsule 100 mg PO DAILY PRN (Reason: constipation) 90 Days Qty: 90 0RF albuterol sulfate [Ventolin HFA] 90 mcg/actuation HFA aerosol inhaler 1 inh inhalation QID PRN (Reason: shortness of breath or wheezing) Qty: 8.5 3RF hydrocodone-acetaminophen 10-325 mg tablet 1 tab PO QID PRN (Reason: pain) 30 Days Qty: 120 0RF Rx Instructions: donot fill before 12/09/2022 anastrozole 1 mg tablet 1 mg PO DAILY 90 Days Qty: 90 1RF paroxetine HCl 30 mg tablet 30 mg PO EVERY OTHER DAY 90 Days Qty: 90 1RF pravastatin 40 mg tablet 40 mg PO QPM 90 Days Qty: 90 1RF trazodone 100 mg tablet 100 mg PO BEDTIME 90 Days Qty: 90 1RF pantoprazole 40 mg tablet,delayed release (DR/EC) 40 mg PO DAILY 90 Days Qty: 90 1RF ergocalciferol (vitamin D2) 1,250 mcg (50,000 unit) capsule 1,250 mcg PO Q7D Qty: 12 3RF Rx Instructions: ON WEDNESDAYS Benadryl 2 % gel 1 applic topical BID PRN (Reason: itching) Qty: 103 0RF nystatin 100,000 unit/gram cream 1 applic topical BID 30 Days Qty: 30 2RF Incruse Ellipta 62.5 mcg/actuation blister with device 1 inh inhalation DAILY Qty: 30 3RF Eliquis 5 mg tablet See Rx Instructions .ROUTE .COMPLEX 90 Days Qty: 180 1RF Dose Instruction: TAKE 1 TABLET BY MOUTH TWICE DAILY AT 0900 AND 2100 FOR 30 DAYS Rx Instructions: TAKE 1 TABLET BY MOUTH TWICE DAILY AT 0900 AND 2100 Lantus Solostar U-100 Insulin 100 unit/mL (3 mL) insulin pen 20 unit SUBCUT Q12H Qty: 30 3RF Rx Instructions: 340b (DME) strips See Rx Instructions .Route .MEDSUPPLY Qty: 360 3RF Rx Instructions: CHECK BS TID, with meals One Touch Verio (DME) pen needle, diabetic [Pen Needle] 32 gauge x 5/32 needle See Rx Instructions .Route Qty: 360 3RF Rx Instructions: use to check blood sugar five times daily. (DME) OneTouch Verio test strips Strip See Rx Instructions .ROUTE .COMPLEX Qty: 100 0RF Dose Instruction: USE 1 STRIP TO CHECK GLUCOSE THREE TIMES DAILY BEFORE MEAL(S) Rx Instructions: USE 1 STRIP TO CHECK GLUCOSE THREE TIMES DAILY BEFORE MEAL(S) hydrocortisone [Anti-Itch (HC)] 1 % cream 1 applic topical DAILY PRN (Reason: skin irritation) Qty: 28.35 0RF Novolog FlexPen U-100 Insulin 100 unit/mL (3 mL) insulin pen See Rx Instructions .ROUTE .COMPLEX Qty: 30 3RF Dose Instruction: INJECT 3 TIMES DAILY WITH MEALS, BASED ON BLOOD SUGAR ON SLIDING SCALE PROVIDED. MAX DAILY AMOUNT: 45 UNITS. Rx Instructions: INJECT 3 TIMES DAILY WITH MEALS, BASED ON BLOOD SUGAR ON SLIDING SCALE PROVIDED. MAX DAILY AMOUNT: 45 UNITS. 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
[2022-12-15 22:02] VITALS: BP 178/113; PULSE 85; RESP 15; TEMP 36.8; O2SAT 93
[2022-12-15 22:08] VITALS: BP 189/104; PULSE 82; RESP 15; O2SAT 96
[2022-12-15 22:17] LABS: Basophils % 0.5 %; Eosinophils # 0.3 10^3/uL (0.0-0.8); Hematocrit 38.4 % (37.0-47.0); Hemoglobin 12.4 g/dL (11.5-15.3); Lymphocytes # 1.5 10^3/uL (0.8-4.8); Lymphocytes % 23.3 %; Mean Corpuscular HGB Conc 32.3 g/dL (30.0-36.0); Mean Corpuscular Hemoglobin 28.1 pg (28.0-34.0); Mean Corpuscular Volume 86.9 fl (81-99); Mean Platelet Volume 9.8 fL (7.4-10.4); Monocytes # 0.3 10^3/uL (0.2-0.9); Monocytes % 5.2 %; Neutrophils # 4.22 10^3/uL (1.8-7.7); Neutrophils % 66.7 %; Nucleated Red Blood Cells % 0 %; Platelet Count 247 10^3/cmm (130-400); Red Blood Count 4.42 10^6/uL (4.1-5.3); Red Cell Distribution Width 13.9 % (12.1-15.1); White Blood Count 6.3 10^3/uL (4.0-10.0)
[2022-12-15 22:29] LABS: INR 1.35 (0.8-1.2)
[2022-12-15 22:35] LABS: Glucose Point of Care 362 mg/dL (70-110)
[2022-12-15 22:36] LABS: Alanine Aminotransferase 16 U/L (0-33); Albumin Level 3.7 g/dL (3.5-5.2); Alkaline Phosphatase 118 U/L (35-105); Anion Gap 18.3 (5-19); Aspartate Amino Transferase 15 U/L (0-32); Blood Urea Nitrogen 32 mg/dL (8-23); Calcium 9.4 mg/dL (8.5-10.5); Carbon Dioxide 23 mmol/L (22-29); Chloride 99 mmol/L (98-107); Globulin 3.4 g/dL (1.3-4.6); Glucose 324 mg/dL (65-115); Osmolality Calculated 301 mOsm/kg (285-295); Potassium 4.3 mmol/L (3.5-5.1); Sodium 136 mmol/L (136-145); Total Bilirubin 0.2 mg/dL (0.15-1.2); Total Protein 7.1 g/dL (6.6-8.7)
[2022-12-15 22:44] LABS: Amphetamines Screen Urine Negative (Negative); Barbiturates Screen Urine Negative (Negative); Benzodiazepines Screen Urine Negative (Negative); Cocaine Screen Urine Negative (Negative); Opiate Screen Urine Positive (Negative); PCP Screen Urine Negative (Negative); THC Screen Urine Negative (Negative)
[2022-12-15 22:59] LABS: Bilirubin Urine Neg (Negative); Blood Urine Neg (Negative); Glucose Urine UA 4+ (Normal); Ketones Urine Negative (Negative); Nitrate Urine Negative (Negative); Protein Urine 1+ (Negative); Urine Appearance Clear (CLEAR); Urine Color Colorless (Yellow); pH Urine 5 (5-7)
[2022-12-15 23:00] LABS: Add Urine Microscopic? YES; Leukocyte Esterase Urine Negative (Negative); Urobilinogen Urine Norm (Negative)
[2022-12-15 23:09] LABS: RBC Urine 0-4 /hpf (0-2); Squamous Epithelial Cell Urine 0-4 /hpf (0-5); WBC Urine 0-4 /hpf (0-5)
[2022-12-15 23:10] LABS: Bacteria Urine TRACE /hpf
[2022-12-15 23:23] VITALS: BP 101/45; PULSE 65; RESP 14; O2SAT 94
[2022-12-16] VITALS (13 sets, daily range): BP systolic 120–181; BP diastolic 63–101; PULSE 70–84; RESP 11–18; TEMP 36.9–37.6; O2SAT 94–99; BMI 26.9
--- NOTE | 2022-12-16 01:16 | P.HP_ITS ---
Providers/Chief Complaint Admitting Physician: Boris Ryder Primary Care Provider: Aron Ortiz MD Chief Complaint: STROKE History of Present Illness Pleasant 72-year-old lady with history of DM2, HLD, HTN, former smoker, was brought into ED for evaluation after 1999. She tells me she went to the bathroom got dizzy and fell on her bottom. Then she started having slurred speech, right-sided weakness with difficulty lifting her right arm, confusion. Her noted droop on the right side of her face. Reportedly she felt dizzy and fell as well. Reported elevated blood pressure in EMS. Assessment for CVA in ER, most symptoms appear to have resolved, with noted mild facial droop, mild dysarthria, moving all extremities. No headache. Head CT without acute intracranial normality. CTA head and neck with moderate stenosis of proximal right ICA. No large vessel stenosis or occlusion in the head. Additional studies including UA, chest x-ray, U tox screen unremarkable. U tox positive for opioids which she takes at home. Review of Systems Const: Denies: fever(s), chills, body aches or malaise Eyes: Denies: change in vision, eye discomfort or eye redness ENMT: Denies: throat pain, oral sores or ear or mastoid pain Card: Denies: chest pain, edema, pre-syncope or dyspnea on exertion Resp: Denies: dyspnea, productive cough, change in phlegm color or hemoptysis GI: Denies: abdominal pain, nausea, vomiting, diarrhea, constipation, hematochezia or melena : Denies: flank pain, urinary frequency or hematuria Musc: Denies: back pain, joint swelling or joint redness Skin/Breast: Denies: rash or new lesions Neuro: Reports: headache(s) (on and off mild headaches, not currently); Denies: numbness in extremities, weakness in extremities, dizziness, confusion or seizure-like activity Medications/Allergies Home Medications Medication Instructions Recorded Confirmed Last Taken Type docusate sodium 100 mg capsule 100 mg PO DAILY PRN constipation 05/18/21 11/15/22 06/11/21 08:00 Rx 90 days #90 caps pen needle, diabetic 32 gauge x #360 ea 09/01/21 11/15/22 Unknown Rx (Pen Needle) diphenhydramine HCl 2 % topical 1 applic topical BID PRN itching 03/23/22 11/15/22 Unknown Rx gel (Benadryl) #103 mL ergocalciferol (vitamin D2) 1,250 1,250 mcg PO Q7D #12 caps 03/23/22 11/15/22 Unknown Rx mcg (50,000 unit) capsule nystatin 100,000 unit/gram topical 1 applic topical BID 30 days #30 03/23/22 11/15/22 Unknown Rx cream grams blood sugar diagnostic (OneTouch #100 ea 04/27/22 11/15/22 Unknown Rx Verio test strips) hydrocortisone 1 % topical cream 1 applic topical DAILY PRN skin 04/27/22 0 11/15/22 Unknown Rx (Anti-Itch (hydrocortisone)) irritation #28.35 grams Novolog FlexPen U-100 Insulin 100 See Rx Instructions .Route 05/04/22 11/15/22 Unknown Rx unit/mL (3 mL) subcutaneous .COMPLEX #30 mL (insulin aspart U-100) lancets 33 gauge #360 ea 05/19/22 11/15/22 Unknown Rx lancets 30 gauge (OneTouch Delica #100 ea 05/23/22 11/15/22 Unknown Rx Plus Lancet) albuterol sulfate 90 mcg/actuation 1 inh inhalation QID PRN shortness 07/07/22 11/15/22 Unknown Rx aerosol inhaler (Ventolin HFA) of breath or wheezing #8.5 grams umeclidinium 62.5 mcg/actuation 1 inh inhalation DAILY #30 ea 08/11/22 11/15/22 Unknown Rx blister powder for inhalation (Incruse Ellipta) anastrozole 1 mg tablet 1 mg PO DAILY 90 days #90 tabs 09/20/22 11/15/22 Unknown Rx hydrocodone 10 mg-acetaminophen 1 tab PO QID PRN pain 30 days #120 09/20/22 11/15/22 Unknown Rx 325 mg tablet tabs pantoprazole 40 mg tablet,delayed 40 mg PO DAILY 90 days #90 tabs 09/20/22 11/15/22 Unknown Rx release paroxetine HCl 30 mg tablet 30 mg PO EVERY OTHER DAY 90 days 09/20/22 11/15/22 Unknown Rx #90 tabs pravastatin 40 mg tablet 40 mg PO QPM 90 days #90 tabs 09/20/22 11/15/22 Unknown Rx trazodone 100 mg tablet 100 mg PO BEDTIME 90 days #90 tabs 09/20/22 11/15/22 Unknown Rx pen needle #360 ea 10/11/22 11/15/22 Unknown Rx apixaban 5 mg tablet (Eliquis) See Rx Instructions .Route 11/15/22 11/15/22 Unknown Rx .COMPLEX 90 days #180 tabs insulin glargine 100 unit/mL (3 20 unit (0.2 mL) SUBCUT Q12H #30 mL 11/15/22 11/15/22 Unknown Rx mL) subcutaneous pen (Lantus Solostar U-100 Insulin) strips #360 ea 11/15/22 11/15/22 Unknown Rx Allergies Allergy/AdvReac Type Severity Reaction Status Date / Time No Known Allergies Allergy Verified 11/15/22 13:10 PFSH Acute PFSH: Medical History Breast cancer right and left Constipation Diabetes mellitus DVT (deep venous thrombosis) s/p hysterectomy x 2 episodes in one year, last ~1982 Dyslipidemia HTN (hypertension), benign Smoker Uterine cancer Surgical History H/O total hysterectomy History of nephrectomy, right Hx of partial adrenalectomy S/P IVC filter Status post incision and drainage (02/14/21) Abdominal wall abscess Status post laparoscopic cholecystectomy Status post left breast lumpectomy Status post right breast lumpectomy Family History Mother , AT AGE OF 71 BONE CANCER Cancer Other Diabetes Social History Smoking and tobacco status: never smoked Quit status (tobacco): has quit using tobacco Year quit tobacco: January 2021 Former quit date comment: 1ppd x 50 years Alcohol intake: never Household members: spouse Marital status: Current occupational status: disabled Vitals/I&O/Wt Last Vital Signs Temp 98.3 F 12/15/22 22:02 Pulse 65 12/15/22 23:23 Resp 17 12/16/22 00:14 BP 120/63 12/16/22 00:14 Pulse Ox 94 12/16/22 00:14 O2 Del Method 12/15/22 23:23 Weight last 48 hrs Weight 72.121 kg Physical Exam Const: COMMON NORMALS: patient oriented x3 and alert GENERAL APPEARANCE: cooperative ORIENTATION/CONSCIOUSNESS: Yes awake HENMT: COMMON NORMALS: oropharynx normal Neck/C-Spine: COMMON NORMALS: no JVD Resp: COMMON NORMALS: normal respiratory effort and clear to auscultation bilaterally AUSCULTATION: clear to auscultation bilaterally Cardio: COMMON NORMALS: no JVD, regular rhythm, S1 normal heart sound present, S2 normal heart sound present and No murmurs present (Cardio) RHYTHM: regular rhythm HEART SOUNDS: S1 normal heart sound present and S2 normal heart sound present GI: COMMON NORMALS: Normal to inspection, nondistended, normoactive bowel sounds present, Soft to palpation and non-tender PALPATION: Yes Soft to palpation Extremity: COMMON NORMALS: no joint enlargement and no pedal edema Neuro: COMMON NORMALS: patient oriented x3 and moves all extremities SENSORIUM/ORIENTATION: Yes alert COORDINATION/BALANCE: [id number] test normal SPEECH: expressive aphasia (mild-mod) SENSORY EXAM: Yes extremities (symmetrical) and Normal double simultaneous stimulation for sensation MOTOR EXAM: Pronator motor function not present OTHER: Awake and alert, following directions well. No difficulty tracking. Visual mesa full to confrontation. I do not appreciate any further facial droop. Skin: COMMON NORMALS: no rashes or lesions noted GENERAL SKIN EXAM: no rashes or lesions noted Data 12/15/22 22:10 12/15/22 22:10 A&P Assessment and plan (1) CVA (cerebral vascular accident): With spontaneously significantly improving symptoms. Right-sided weakness has resolved. Facial droop has resolved. Possible TIA, but she is still having mild to moderate aphasia, possible CVA. Stroke may have been triggered by her fall. It appears he is also on anastrozole with history of breast cancer. This medication will need to be revisited with her oncologist whether benefits may outweigh the risks for her to resume it. CT head results appreciated, unremarkable. CTA head and neck results appreciated as well, noted moderate stenosis of proximal right ICA. EKG with sinus rhythm. Blood pressure initially soft in ER, started on IV hydration. Currently 120/63. Continue permissive hypertension for now. Neuro reassessments. Will additionally assess with MR brain, monitor on telemetry, assess TTE w bubble study, A1c, lipid profile. Aspirin 162 mg. Continue statin, and discharge would escalate to high intensity statin. PT, OT, ST evaluation. Discharge planning. Follow-up with neurology after discharge. Discussed with ER physician, ER documentation reviewed. Plan History of breast cancer Constipation DM2: CC diet, continue insulin, sliding scale and Accu-Cheks. History of DVT, on anticoagulation with Eliquis HLD HTN Former smoker History of uterine cancer Attestations Medical Necessity Statement*: Place in observation for additional assessment management of possible TIA versus CVA Diagnoses CVA (cerebral vascular accident) I63.9
--- NOTE | 2022-12-16 01:17 | USCV_ITS ---
Amaris Larsen Age: 72 Gender: F : 1950 Exam Date: 12/16/2022 01:54 Ordering Phys: Boris Ryder MD Technologist: LAURO Exam Location: [facility] – [place] Indication: CVA, slurred speech, RIGHT hemiparesis. No history of cardiac intervention per patient. BUBBLE STUDY BP: 101 / 45 HR: 75 Rhythm: Sinus Technical Quality: Adequate MEASUREMENTS (Male / Female) Normal Values 2D ECHO LV Diastolic Diameter PLAX 3.3 cm 4.2 - 5.9 / 3.9 - 5.3 cm LV Systolic Diameter PLAX 2.1 cm IVS Diastolic Thickness 1.8 cm 0.6 - 1.0 / 0.6 - 0.9 cm IVS Systolic Thickness 2.2 cm LVPW Diastolic Thickness 1.5 cm 0.6 - 1.0 / 0.6 - 0.9 cm LVPW Systolic Thickness 1.6 cm LVOT Diameter 2.0 cm LV Ejection Fraction 2D Teich 65.3 % LV Ejection Fraction MOD 2C 61.3 % LV Ejection Fraction 2C AL 61.3 % LA Diameter 2.6 cm LA Width 3.7 cm LA Height 4.9 cm RA Width 2.2 cm RA Height 3.4 cm Aorta at Sinotubular Diameter 2.6 cm IVC Diameter 1.1 cm M-MODE Aortic Annulus Diameter 2.7 cm LA Ao Ratio MM 1.0 MV E Point Septal Separation 0.3 cm DOPPLER AV Peak Velocity 107.0 cm/s LVOT Peak Velocity 83.0 cm/s AV Area Cont Eq vti 2.7 cm squared AV Area Cont Eq pk 2.4 cm squared MV Peak Velocity 175.0 cm/s MV Area PHT 2.7 cm squared Mitral E to A Ratio 0.5 MV E' Velocity 45.5 cm/s Mitral E to MV E' Ratio 16.4 Mitral E to LV E' Lateral Ratio 21.8 Mitral E to LV E' Septal Ratio 13.2 TV Peak E Velocity 48.0 cm/s PV Peak Velocity 88.0 cm/s RV Acceleration Time 0.1 s RV Ejection Time 0.3 s RV AcT/ET 0.2 FINDINGS Left Ventricle Normal left ventricular size, systolic function and wall thickness, with no regional wall motion abnormalities. Left ventricular ejection fraction is estimated at 60 %. Grade I/IV diastolic dysfunction (abnormal relaxation filling pattern), normal to mildly elevated filling pressures. Right Ventricle The right ventricle is normal in size and function. Right Atrium The right atrium is normal in size. Left Atrium The left atrium is normal in size. Mitral Valve Structurally normal mitral valve without significant stenosis or prolapse. There is no mitral regurgitation. Aortic Valve Structurally normal aortic valve without significant sclerosis or stenosis. There is no aortic regurgitation. Tricuspid Valve Trace tricuspid valve regurgitation. Pulmonic Valve Structurally normal pulmonic valve without significant stenosis. There is no pulmonic regurgitation. Pericardium Normal pericardium without effusion. Aorta Normal ascending aorta dimension. IVC The inferior vena cava appears normal. CONCLUSIONS 1-Normal left ventricular size, systolic function and wall thickness, with no regional wall motion abnormalities. Left ventricular ejection fraction is estimated at 60 %. Grade I/IV diastolic dysfunction (abnormal relaxation filling pattern), normal to mildly elevated filling pressures. 2-There is no pericardial effusion. 3-No significant valve abnormalities. 4-Right atrial pressure is around 5 mm of mercury. Rj Singh MD (Electronically Signed) Final Date: 17 December 2022 00:23 S
--- NOTE | 2022-12-16 01:26 | MR_ITS ---
WS: [id number] MRI HEAD WITHOUT CONTRAST TECHNIQUE: Sagittal T1, T2 axial, T2 axial FLAIR, axial and coronal T1 images, axial susceptibility w eighted imaging, axial diffusion weighted images, and coronal T2 images were obtained. CLINICAL INFORMATION: cva COMPARISON: CT head December 15, 2022 FINDINGS: No evidence of residual diffusion to suggest acute ischemia. Ventricular system and basal cisterns ar e patent. Mild small vessel changes. Moderate parenchymal volume loss. Normal vascular flow voids at the skull base. No extra-axial fluid collections. No evidence of mass or mass effect. Paranasal sinuses and mastoid air cells are well aerated. No hemosiderin on susceptibly weighted imag es. Normal optic chiasm and pituitary infundibulum. Moderate symmetric atrophy temporal lobes and hip pocampal formations. MR/MR head wo con* [id number] IMPRESSION: 1. No evidence of restricted diffusion to suggest acute ischemia. 2. Mild small vessel changes with moderate parenchymal volume loss. 3. No hemosiderin on susceptibly weighted images. 4. Paranasal sinuses and mastoid air cells well aerated. 5. Moderate symmetric atrophy temporal lobes and hippocampal formations.
[2022-12-16 01:38] LABS: Chol HDL Ratio 5.82 mg/dL (0.0-4.40); Cholesterol 198 mg/dL (0-200); HDL Cholesterol 34 mg/dL (60-100); LDL Cholesterol Calculated 87 mg/dL (50-129); LDL HDL Ratio 2.56 RATIO (0.00-3.22); Triglycerides 384 mg/dL (0-150)
[2022-12-16] MEDS: aspirin 81 mg EC Tablet 162 MG PO ×2 (03:20→21:01)
[2022-12-16 06:34] LABS: Estmated Average Glucose 246; Hemoglobin A1C 10.2 % (4.0-6.0)
[2022-12-16] MEDS: apixaban 5 mg Tablet PO ×2 (08:49→21:01)
[2022-12-16 09:10] LABS: Glucose Point of Care 276 mg/dL (70-110)
--- NOTE | 2022-12-16 12:28 | P.PN_ITS ---
Subjective Subjective: Seen at bedside. States she is feeling improved still having some confusion per but drastically improved. Denies loss of strength/sensation, CP, SOB, palpitations Vitals/I&O/Wt Last Vital Signs Temp 98.4 F 12/16/22 11:00 Pulse 80 12/16/22 11:00 Resp 18 12/16/22 11:00 BP 157/88 12/16/22 11:00 Pulse Ox 98 12/16/22 11:00 O2 Del Method 12/16/22 11:00 12/15/22 12/16/22 12/16/22 22:59 06:59 14:59 Intake Total 0 / 0 Balance 0 / 0 Weight last 48 hrs Weight 162 lb 3.2 oz Weight 159 lb Physical Exam Const: COMMON NORMALS: no acute distress, patient oriented x3, healthy appearing and alert GENERAL APPEARANCE: cooperative ORIENTATION/CONSCIOUSNESS: Yes awake HENMT: COMMON NORMALS: normocephalic, atraumatic and oropharynx normal HEAD & SCALP: normocephalic and atraumatic Eye: COMMON NORMALS: Equal, round and reactive pupils present and EOMs intact bilaterally PUPIL: Yes Equal, round and reactive pupils present Neck/C-Spine: COMMON NORMALS: full ROM, supple and no JVD Chest: COMMONS NORMALS: normal inspection of the chest and normal palpation of entire chest wall Resp: COMMON NORMALS: normal respiratory effort, No retractions, No use of accessory muscles and clear to auscultation bilaterally AUSCULTATION: clear to auscultation bilaterally Cardio: COMMON NORMALS: no JVD, regular rate, regular rhythm, S1 normal heart sound present, S2 normal heart sound present and No murmurs present (Cardio) RATE: regular rate RHYTHM: regular rhythm HEART SOUNDS: S1 normal heart sound present and S2 normal heart sound present GI: COMMON NORMALS: Normal to inspection, nondistended, normoactive bowel sounds present, Soft to palpation, non-tender and no masses PALPATION: Yes Soft to palpation Extremity: COMMON NORMALS: normal to inspection, full ROM, no joint enlargement and no pedal edema Neuro: COMMON NORMALS: patient oriented x3, moves all extremities and no focal motor deficits SENSORIUM/ORIENTATION: Yes alert COORDINATION/BALANCE: f [id number] test normal SPEECH: no expressive aphasia (mild-mod) SENSORY EXAM: Yes extremities (symmetrical) and Normal double simultaneous stimulation for sensation MOTOR EXAM: Pronator motor function not present COORDINATION: [id number] test normal OTHER: Awake and alert, following directions well. No difficulty tracking. Psych: COMMON NORMALS: mental status grossly normal, Normal thought process present and cooperative THOUGHT PROCESS: Normal thought process present Skin: COMMON NORMALS: no rashes or lesions noted and no wounds GENERAL SKIN EXAM: no rashes or lesions noted Data 12/15/22 22:10 12/15/22 22:10 MRI: Radiologist's impression: 1.? No evidence of restricted diffusion to suggest acute ischemia. 2.? Mild small vessel changes with moderate parenchymal volume loss. 3.? No hemosiderin on susceptibly weighted images. 4.? Paranasal sinuses and mastoid air cells well aerated. 5.? Moderate symmetric atrophy temporal lobes and hippocampal formations. A&P Assessment and plan (1) Brain TIA: With spontaneously significantly improving symptoms. still having some confusion per but closer to baseline Right-sided weakness has resolved. Facial droop has resolved. Likely TIA given Sx improvement continue permissive HTN for now then start on anti-HTN Neuro reassessment Tele continua ASA and statin. will need both on discharge. PT/OT/ST MRI showed no abanormalities (2) CVA (cerebral vascular accident): unlikely diagnosis given Sx this AM and MRI results (3) History of breast cancer: It appears he is also on anastrozole with history of breast cancer. This medication will need to be revisited with her oncologist whether benefits may outweigh the risks for her to resume it. Plan improving well will consider discharge in next 48hrs. likely one more night. History of breast cancer Constipation DM2: CC diet, continue insulin, sliding scale and Accu-Cheks. History of DVT, on anticoagulation with Eliquis HLD HTN Former smoker History of uterine cancer Attestations Medical Necessity Statement*: pt requires hospitalizatoin to r/o CVA. discharge within 24hrs Coding Level of Care Code 38293 Diagnoses Brain TIA G45.9 CVA (cerebral vascular accident) I63.9 History of breast cancer Z85.3
[2022-12-16 12:41] LABS: Glucose Point of Care 371 mg/dL (70-110)
[2022-12-16] MEDS: insulin lispro 100 unit/1 mL SUBCUT ×2 (12:59→17:42)
[2022-12-16] MEDS: pantoprazole DR 40 mg Tablet PO (12:59)
[2022-12-16 17:18] LABS: Glucose Point of Care 313 mg/dL (70-110)
[2022-12-16] MEDS: atorvastatin 40 mg Tablet 20 MG PO (17:42)
[2022-12-16] MEDS: HYDROcodone-acetaminophen 10-325 mg Tablet 1 TAB PO (18:23)
[2022-12-16] MEDS: atorvastatin 40 mg Tablet PO (21:01)
[2022-12-16] MEDS: insulin glargine 100 units/1 mL 20 UNIT SUBCUT (21:01)
[2022-12-16 21:20] LABS: Glucose Point of Care 335 mg/dL (70-110)
[2022-12-17] VITALS (9 sets, daily range): BP systolic 153–175; BP diastolic 78–99; PULSE 62–75; RESP 15–18; TEMP 36.6–36.9; O2SAT 95–97
[2022-12-17] MEDS: HYDROcodone-acetaminophen 10-325 mg Tablet 1 TAB PO ×3 (02:45→19:33)
[2022-12-17 04:48] LABS: Estmated Average Glucose 237; Hemoglobin A1C 9.9 % (4.0-6.0)
[2022-12-17 04:49] LABS: Alanine Aminotransferase 12 U/L (0-33); Albumin Level 4.2 g/dL (3.5-5.2); Alkaline Phosphatase 121 U/L (35-105); Anion Gap 16.3 (5-19); Aspartate Amino Transferase 12 U/L (0-32); Blood Urea Nitrogen 32 mg/dL (8-23); Calcium 9.9 mg/dL (8.5-10.5); Carbon Dioxide 25 mmol/L (22-29); Chloride 96 mmol/L (98-107); Chol HDL Ratio 5.08 mg/dL (0.0-4.40); Cholesterol 203 mg/dL (0-200); Globulin 3.3 g/dL (1.3-4.6); Glucose 259 mg/dL (65-115); HDL Cholesterol 40 mg/dL (60-100); LDL Cholesterol Calculated 117 mg/dL (50-129); LDL HDL Ratio 2.93 RATIO (0.00-3.22); Osmolality Calculated 292 mOsm/kg (285-295); Potassium 4.3 mmol/L (3.5-5.1); Sodium 133 mmol/L (136-145); Total Bilirubin 0.4 mg/dL (0.15-1.2); Total Protein 7.5 g/dL (6.6-8.7); Triglycerides 232 mg/dL (0-150)
[2022-12-17 04:56] LABS: Creatinine Clr Calc Pharmacy 27.9605
[2022-12-17] MEDS: PARoxetine 20 mg Tablet 30 MG PO (07:54)
[2022-12-17] MEDS: pantoprazole DR 40 mg Tablet PO (07:54)
[2022-12-17] MEDS: docusate sodium 100 mg Capsule PO (07:55)
[2022-12-17] MEDS: apixaban 5 mg Tablet PO ×2 (07:59→21:37)
[2022-12-17] MEDS: insulin lispro 100 unit/1 mL SUBCUT ×3 (08:00→17:09)
[2022-12-17 08:27] LABS: Glucose Point of Care 243 mg/dL (70-110)
--- NOTE | 2022-12-17 09:40 | ECG_ITS ---
[facility] Test Date: 2022-12-17 Pat Name: Amaris Larsen Department: Room: 277 Gender: Female [place]: : 1950 Requested By: Ahsan Al Order Number: [id number] Reading MD: JOE BRADFORD Measurements Intervals Whitney Rate: 82 P: 37 SD: 172 QRS: -69 QRSD: 91 T: 45 QT: 377 QTc: 441 Interpretive Statements SINUS RHYTHM POSSIBLE LEFT ATRIAL ENLARGEMENT [-0.1mV P-WAVE IN V1/V2] PATTERN CONSISTENT WITH PULMONARY DISEASE LEFT ANTERIOR FASCICULAR BLOCK [QRS AXIS <= -45, QR IN I, RS IN II] Compared to ECG 12/15/2022 21:50:04 Left anterior fascicular block now present Indeterminate axis no longer present ST (T wave) deviation no longer present Electronically Signed On 12-17-2022 23:36:41 CDT by JOE BRADFORD [id number]
[2022-12-17] MEDS: insulin glargine 100 units/1 mL 20 UNIT SUBCUT ×2 (09:57→21:40)
[2022-12-17 11:01] LABS: Glucose Point of Care 333 mg/dL (70-110)
--- NOTE | 2022-12-17 11:05 | PM.PN ---
Subjective Subjective: Seen at bedside. States she is feeling improved says she still has some confusion but better than yday worked with PT this AM. some weakness in RLE, no drastic change from baseline. Denies loss of strength/sensation, CP, SOB, palpitations Vitals/I&O/Wt Last Vital Signs Temp 98.0 F 12/17/22 08:00 Pulse 75 12/17/22 08:00 Resp 17 12/17/22 08:00 BP 175/93 12/17/22 08:00 Pulse Ox 97 12/17/22 08:00 O2 Del Method 12/17/22 08:00 12/16/22 12/17/22 12/17/22 22:59 06:59 14:59 Intake Total 240 / 360 100 / 460 480 / 480 Balance 240 / 360 100 / 460 480 / 480 Weight last 48 hrs Weight 162 lb 3.2 oz Weight 159 lb Physical Exam Const: COMMON NORMALS: no acute distress, patient oriented x3, healthy appearing and alert GENERAL APPEARANCE: cooperative ORIENTATION/CONSCIOUSNESS: Yes awake HENMT: COMMON NORMALS: normocephalic, atraumatic and oropharynx normal HEAD & SCALP: normocephalic and atraumatic Eye: COMMON NORMALS: Equal, round and reactive pupils present and EOMs intact bilaterally PUPIL: Yes Equal, round and reactive pupils present Neck/C-Spine: COMMON NORMALS: full ROM, supple and no JVD Chest: COMMONS NORMALS: normal inspection of the chest and normal palpation of entire chest wall Resp: COMMON NORMALS: normal respiratory effort, No retractions, No use of accessory muscles and clear to auscultation bilaterally AUSCULTATION: clear to auscultation bilaterally Cardio: COMMON NORMALS: no JVD, regular rate, regular rhythm, S1 normal heart sound present, S2 normal heart sound present and No murmurs present (Cardio) RATE: regular rate RHYTHM: regular rhythm HEART SOUNDS: S1 normal heart sound present and S2 normal heart sound present GI: COMMON NORMALS: Normal to inspection, nondistended, normoactive bowel sounds present, Soft to palpation, non-tender and no masses PALPATION: Yes Soft to palpation Extremity: COMMON NORMALS: normal to inspection, full ROM, no joint enlargement and no pedal edema Neuro: COMMON NORMALS: patient oriented x3, moves all extremities and no focal motor deficits SENSORIUM/ORIENTATION: Yes alert COORDINATION/BALANCE: [id number] test normal SPEECH: no expressive aphasia (mild-mod) SENSORY EXAM: Yes extremities (symmetrical) and Normal double simultaneous stimulation for sensation MOTOR EXAM: Pronator motor function not present COORDINATION: [id number] test normal OTHER: Awake and alert, following directions well. No difficulty tracking. Psych: COMMON NORMALS: mental status grossly normal, Normal thought process present and cooperative THOUGHT PROCESS: Normal thought process present Skin: COMMON NORMALS: no rashes or lesions noted and no wounds GENERAL SKIN EXAM: no rashes or lesions noted Data 12/15/22 22:10 12/17/22 04:00 A&P Assessment and plan (1) Brain TIA: MRI showed no CVA With spontaneously significantly improving symptoms. still having some confusion per but closer to baseline Right-sided weakness has resolved on my examination will stop permissive HTN continue neuro checks tele ASA, statin - shira need on discharge PT/OT (2) CVA (cerebral vascular accident): unlikely diagnosis given Sx this AM and MRI results (3) Diabetes mellitus: glargine 20u BID LDSSI accuchecks (4) HTN (hypertension), benign: metoprolol 12.5mg BID pt states out of hospital her BP was low thus removed home BP meds 6 onths ago (5) CKD (chronic kidney disease): slightly improved this AM. Cr 1.8 --> 1.7 unknown GFR likely CKD 3b or 4 (6) History of breast cancer: It appears he is also on anastrozole with history of breast cancer. This medication will need to be revisited with her oncologist whether benefits may outweigh the risks for her to resume it. Plan Pt showing signs of improvement will manage BP, glucose and likely d/c this PM or in AM History of breast cancer Constipation DM2: CC diet, continue insulin, sliding scale and Accu-Cheks. History of DVT, on anticoagulation with Eliquis HLD HTN Former smoker History of uterine cancer Attestations Medical Necessity Statement*: will require hospitalization for 1 more evening 2/2 weakness s/p CVA r/o Coding Level of Care Code 63312 Diagnoses Brain TIA G45.9 CVA (cerebral vascular accident) I63.9 Diabetes mellitus E11.9 HTN (hypertension), benign I10 CKD (chronic kidney disease) N18.9 History of breast cancer Z85.3
[2022-12-17] MEDS: metoprolol tartrate 25 mg Tablet 12.5 MG PO ×2 (12:05→21:37)
[2022-12-17 16:31] LABS: Glucose Point of Care 259 mg/dL (70-110)
[2022-12-17] MEDS: atorvastatin 40 mg Tablet 20 MG PO (17:08)
--- NOTE | 2022-12-17 20:48 | PC.NURSE ---
handoff report given to Candice nurse taking over care for patient.
[2022-12-17 21:15] LABS: Glucose Point of Care 256 mg/dL (70-110)
[2022-12-17] MEDS: atorvastatin 40 mg Tablet PO (21:37)
[2022-12-17] MEDS: aspirin 81 mg EC Tablet 162 MG PO (21:37)
[2022-12-18] VITALS (7 sets, daily range): BP systolic 121–186; BP diastolic 72–108; PULSE 57–68; RESP 16–17; TEMP 36.7–36.8; O2SAT 95
[2022-12-18] MEDS: HYDROcodone-acetaminophen 10-325 mg Tablet 1 TAB PO ×3 (03:03→11:22)
[2022-12-18 04:00] LABS: Alanine Aminotransferase 12 U/L (0-33); Alkaline Phosphatase 97 U/L (35-105); Anion Gap 14.4 (5-19); Aspartate Amino Transferase 14 U/L (0-32); Blood Urea Nitrogen 29 mg/dL (8-23); Calcium 9.7 mg/dL (8.5-10.5); Carbon Dioxide 25 mmol/L (22-29); Chloride 99 mmol/L (98-107); Globulin 3.5 g/dL (1.3-4.6); Glucose 196 mg/dL (65-115); Osmolality Calculated 289 mOsm/kg (285-295); Potassium 4.4 mmol/L (3.5-5.1); Sodium 134 mmol/L (136-145); Total Bilirubin 0.4 mg/dL (0.15-1.2); Total Protein 7.5 g/dL (6.6-8.7)
--- NOTE | 2022-12-18 04:58 | PC.NURSE ---
Dr. Guillory notified of BP and pt c/o headache, order to give another [place] one time now received
[2022-12-18 06:46] LABS: Glucose Point of Care 204 mg/dL (70-110)
[2022-12-18] MEDS: docusate sodium 100 mg Capsule PO (07:47)
[2022-12-18] MEDS: nystatin cream 30 gm 1 APPLIC TOPICAL (07:47)
[2022-12-18] MEDS: insulin lispro 100 unit/1 mL SUBCUT ×2 (07:47→12:08)
[2022-12-18] MEDS: insulin glargine 100 units/1 mL 20 UNIT SUBCUT (07:47)
[2022-12-18] MEDS: pantoprazole DR 40 mg Tablet PO (07:48)
[2022-12-18] MEDS: metoprolol tartrate 25 mg Tablet 12.5 MG PO (07:48)
[2022-12-18] MEDS: apixaban 5 mg Tablet PO (07:48)
--- NOTE | 2022-12-18 11:12 | PM.DCS ---
Discharge Providers Date of Admission: 12/16/22 21:06 Date of Discharge: December 18, 2022 Attending Provider at Admission: Boris Ryder Attending Provider at Discharge: Ahsan Al MD Primary Care Provider: Aron Ortiz MD Diagnoses at Discharge Discharge Diagnosis (1) Brain TIA: Status: Acute (2) CVA (cerebral vascular accident): Status: Acute (3) Diabetes mellitus: Status: Acute (4) HTN (hypertension), benign: Status: Chronic (5) CKD (chronic kidney disease): Status: Acute (6) History of breast cancer: Status: Acute Reason for Visit Reason for Visit: STROKE Hospital Course Hospital Course Admitted on 12/15/22 for CVA like Sx causing dysarthria and confusion s/p dizziness causing fall. Per ED records pt had slurred speech, R sided weakness and difficulty lifting arm with confusion. noticed facial droop. Once in ED symptoms began to resolve with some mild droop, mild dysarthria and confusion. Head CT was without intracranial abnormalities and CTA head and neck showed moderate stenosis of proximal right ICA w/o large vessel disease. Pt was admitted for CVA r/o. Subsequently over next couple of days her symptoms fully resolved and she no longer had confusion which was the last symptom to resolve. MRI head showed no evidence of restricted diffusion to suggest CVA. Diagnosis moved to TIA. pt worked well with PT and was able to care for herself wit the help of her . Upon discharge patient will need to continue ASA and statin. Pt should also revisit her oncologist to discuss benefit of continuing the anastrozole. patient was also hypertensive in hospital and metoprolol 12.5mg BID was started. we will continue this medication and have her f/u with her PCP. Hospital records show a baseline CKD 3b vs CKD 4. pt does not have nephrology and i would recommenced establishment of care by her PCP. Physical Exam Const: COMMON NORMALS: no acute distress, patient oriented x3, healthy appearing and alert GENERAL APPEARANCE: cooperative ORIENTATION/CONSCIOUSNESS: Yes awake HENMT: COMMON NORMALS: normocephalic, atraumatic and oropharynx normal HEAD & SCALP: normocephalic and atraumatic Eye: COMMON NORMALS: Equal, round and reactive pupils present and EOMs intact bilaterally PUPIL: Yes Equal, round and reactive pupils present Neck/C-Spine: COMMON NORMALS: full ROM, supple and no JVD Chest: COMMONS NORMALS: normal inspection of the chest and normal palpation of entire chest wall Resp: COMMON NORMALS: normal respiratory effort, No retractions, No use of accessory muscles and clear to auscultation bilaterally AUSCULTATION: clear to auscultation bilaterally Cardio: COMMON NORMALS: no JVD, regular rate, regular rhythm, S1 normal heart sound present, S2 normal heart sound present and No murmurs present (Cardio) RATE: regular rate RHYTHM: regular rhythm HEART SOUNDS: S1 normal heart sound present and S2 normal heart sound present GI: COMMON NORMALS: Normal to inspection, nondistended, normoactive bowel sounds present, Soft to palpation, non-tender and no masses PALPATION: Yes Soft to palpation Extremity: COMMON NORMALS: normal to inspection, full ROM, no joint enlargement and no pedal edema Neuro: COMMON NORMALS: patient oriented x3, moves all extremities and no focal motor deficits SENSORIUM/ORIENTATION: Yes alert COORDINATION/BALANCE: [id number] test normal SPEECH: no expressive aphasia (mild-mod) SENSORY EXAM: Yes extremities (symmetrical) and Normal double simultaneous stimulation for sensation MOTOR EXAM: Pronator motor function not present COORDINATION: [id number] test normal OTHER: Awake and alert, following directions well. No difficulty tracking. Psych: COMMON NORMALS: mental status grossly normal, Normal thought process present and cooperative THOUGHT PROCESS: Normal thought process present Skin: COMMON NORMALS: no rashes or lesions noted and no wounds GENERAL SKIN EXAM: no rashes or lesions noted Discharge Data Studies Completed and Pending Completed Studies During Hospitalization Category Date Time Status CT head thrombolytic [id number] Stat Cat Scan 12/15/22 21:34 Completed CTA head neck [CT angio headneck* [id number]] Stat Cat Scan 12/15/22 21:38 Completed XR chest 1V portable [id number] Stat Exams 12/15/22 21:34 Completed MR head wo con* [id number] Routine MRI 12/16/22 01:26 Completed Pending at discharge Category Date Time Status CV. echo w/w bubble cont [id number] Routine Ultrasound 12/16/22 01:17 Taken Radiology Impressions Chest X-Ray 12/15/22 21:34 IMPRESSION: No acute cardiopulmonary abnormality. Head CT 12/15/22 21:34 IMPRESSION: No acute intracranial abnormality. ASSESSMENT: ASPECTS ([place] Stroke Program Early CT Score) is 10. Head/Neck CTA 12/15/22 21:38 IMPRESSION: Moderate stenosis of the proximal right ICA. REFERENCES: NASCET CRITERIA. The degree of stenosis in the cervical segment of the internal carotid artery is based on NASCET criteria. Normal is no stenosis. Mild is less than 50% stenosis. Moderate is 50-69% stenosis. Severe is 70% to 99% stenosis. Total occlusion is no detectable patent lumen. Head MRI 12/16/22 01:26 IMPRESSION: 1. No evidence of restricted diffusion to suggest acute ischemia. 2. Mild small vessel changes with moderate parenchymal volume loss. 3. No hemosiderin on susceptibly weighted images. 4. Paranasal sinuses and mastoid air cells well aerated. 5. Moderate symmetric atrophy temporal lobes and hippocampal formations. Laboratory Results WBC 6.3 10^3/uL (4.0-10.0) 12/15/22 22:10 RBC 4.42 10^6/uL (4.1-5.3) 12/15/22 22:10 Hgb 12.4 g/dL (11.5-15.3) 12/15/22 22:10 Hct 38.4 % (37.0-47.0) 12/15/22 22:10 MCV 86.9 fl (81-99) 12/15/22 22:10 MCH 28.1 pg (28.0-34.0) 12/15/22 22:10 MCHC 32.3 g/dL (30.0-36.0) 12/15/22 22:10 RDW 13.9 % (12.1-15.1) 12/15/22 22:10 Plt Count 247 10^3/cmm (130-400) 12/15/22 22:10 MPV 9.8 fL (7.4-10.4) 12/15/22 22:10 Neut % (Auto) 66.7 % 12/15/22 22:10 Lymph % (Auto) 23.3 % 12/15/22 22:10 Dawes % (Auto) 5.2 % 12/15/22 22:10 Eos % (Auto) 4.0 % 12/15/22 22:10 Baso % (Auto) 0.5 % 12/15/22 22:10 Neut # (Auto) 4.22 10^3/uL (1.8-7.7) 12/15/22 22:10 Lymph # (Auto) 1.5 10^3/uL (0.8-4.8) 12/15/22 22:10 Dawes # (Auto) 0.3 10^3/uL (0.2-0.9) 12/15/22 22:10 Eos # (Auto) 0.3 10^3/uL (0.0-0.8) 12/15/22 22:10 Baso # (Auto) 0.0 10^3/uL (0.0-0.1) 12/15/22 22:10 Nucleated RBC % (auto) 0 % 12/15/22 22:10 Nucleated RBCs # 0.0 /100WBC 12/15/22 22:10 PT 17.10 SECONDS (12.1-14.9) H 12/15/22 22:10 INR 1.35 (0.8-1.2) H 12/15/22 22:10 APTT 34.0 SECONDS (23.9-36.7) 12/15/22 22:10 Sodium 134 mmol/L (136-145) L 12/18/22 03:10 Potassium 4.4 mmol/L (3.5-5.1) 12/18/22 03:10 Chloride 99 mmol/L (98-107) 12/18/22 03:10 Carbon Dioxide 25 mmol/L (22-29) 12/18/22 03:10 Anion Gap 14.4 (5-19) 12/18/22 03:10 BUN 29 mg/dL (8-23) H 12/18/22 03:10 Creatinine 1.9 mg/dL (0.5-0.9) H 12/18/22 03:10 GFR Calculation Not Reportable 12/18/22 03:10 Glucose 196 mg/dL (65-115) H 12/18/22 03:10 POC Glucose 204 mg/dL (70-110) H 12/18/22 06:36 Estimat Average Glucose 237 12/17/22 04:00 Hemoglobin A1c 9.9 % (4.0-6.0) H 12/17/22 04:00 Calculated Osmolality 289 mOsm/kg (285-295) 12/18/22 03:10 Calcium 9.7 mg/dL (8.5-10.5) 12/18/22 03:10 Total Bilirubin 0.4 mg/dL (0.15-1.2) 12/18/22 03:10 AST 14 U/L (0-32) 12/18/22 03:10 ALT 12 U/L (0-33) 12/18/22 03:10 Alkaline Phosphatase 97 U/L (35-105) 12/18/22 03:10 Total Protein 7.5 g/dL (6.6-8.7) 12/18/22 03:10 Albumin 4.0 g/dL (3.5-5.2) 12/18/22 03:10 Globulin 3.5 g/dL (1.3-4.6) 12/18/22 03:10 Triglycerides 232 mg/dL (0-150) H 12/17/22 04:00 Cholesterol 203 mg/dL (0-200) H 12/17/22 04:00 LDL Cholesterol, Calc 117 mg/dL (50-129) 12/17/22 04:00 HDL Cholesterol 40 mg/dL (60-100) L 12/17/22 04:00 LDL/HDL Ratio 2.93 RATIO (0.00-3.22) 12/17/22 04:00 Cholesterol/HDL Ratio 5.08 mg/dL (0.0-4.40) H 12/17/22 04:00 Urine Color Colorless (Yellow) 12/15/22 22:25 Urine Appearance Clear (CLEAR) 12/15/22 22:25 Urine pH 5 (5-7) 12/15/22 22:25 Ur Specific [place] 1.010 (1.005-1.030) 12/15/22 22:25 Urine Protein 1+ (Negative) H 12/15/22 22:25 Urine Glucose (UA) 4+ (Normal) H 12/15/22 22:25 Urine Ketones Negative (Negative) 12/15/22 22:25 Urine Blood Neg (Negative) 12/15/22 22:25 Urine Nitrate Negative (Negative) 12/15/22 22:25 Urine Bilirubin Neg (Negative) 12/15/22 22:25 Urine Urobilinogen Norm mg/dL (Negative) 12/15/22 22:25 Ur Leukocyte Esterase Negative (Negative) 12/15/22 22:25 Urine RBC 0-4 /hpf (0-2) H 12/15/22 22:25 Urine WBC 0-4 /hpf (0-5) H 12/15/22 22:25 Ur Squamous Epith Cells 0-4 /hpf (0-5) H 12/15/22 22:25 Amorphous Sediment Not Reportable 12/15/22 22:25 Urine Bacteria Trace /hpf (NONE) 12/15/22 22:25 Urine Opiates Screen Positive ng/mL (Negative) H 12/15/22 22:25 Ur Barbiturates Screen Negative ng/mL (Negative) 12/15/22 22:25 Ur Phencyclidine Scrn Negative ng/mL (Negative) 12/15/22 22:25 Ur Amphetamines Screen Negative ng/mL (Negative) 12/15/22 22:25 U Benzodiazepines Scrn Negative ng/mL (Negative) 12/15/22 22:25 Urine Cocaine Screen Negative ng/mL (Negative) 12/15/22 22:25 U Marijuana (THC) Screen Negative ng/mL (Negative) 12/15/22 22:25 Vitals Last Vital Signs Temp 98.1 F 12/18/22 04:00 Pulse 60 12/18/22 08:00 Resp 16 12/18/22 08:00 BP 158/83 12/18/22 08:00 Pulse Ox 95 12/18/22 08:00 O2 Del Method 12/18/22 08:00 Discharge Plan Discharge Patient Disposition: Home Condition: Stable Prescriptions: New atorvastatin 40 mg Tablet 40 mg PO BEDTIME Qty: 30 0RF aspirin 81 mg tablet,delayed release (DR/EC) 81 mg PO DAILY Qty: 90 0RF Continued albuterol sulfate [Ventolin HFA] 90 mcg/actuation HFA aerosol inhaler 1 inh inhalation QID PRN (Reason: shortness of breath or wheezing) Qty: 8.5 3RF hydrocodone-acetaminophen 10-325 mg tablet 1 tab PO QID PRN (Reason: pain) 30 Days Qty: 120 0RF Rx Instructions: donot fill before 12/09/2022 anastrozole 1 mg tablet 1 mg PO DAILY 90 Days Qty: 90 1RF paroxetine HCl 30 mg tablet 30 mg PO EVERY OTHER DAY 90 Days Qty: 90 1RF pravastatin 40 mg tablet 40 mg PO QPM 90 Days Qty: 90 1RF trazodone 100 mg tablet 100 mg PO BEDTIME 90 Days Qty: 90 1RF pantoprazole 40 mg tablet,delayed release (DR/EC) 40 mg PO DAILY 90 Days Qty: 90 1RF ergocalciferol (vitamin D2) 1,250 mcg (50,000 unit) capsule 1,250 mcg PO Q7D Qty: 12 3RF Rx Instructions: ON WEDNESDAYS nystatin 100,000 unit/gram cream 1 applic topical BID 30 Days Qty: 30 2RF Incruse Ellipta 62.5 mcg/actuation blister with device 1 inh inhalation DAILY Qty: 30 3RF Eliquis 5 mg tablet See Rx Instructions .ROUTE .COMPLEX 90 Days Qty: 180 1RF Dose Instruction: TAKE 1 TABLET BY MOUTH TWICE DAILY AT 0900 AND 2100 FOR 30 DAYS Rx Instructions: TAKE 1 TABLET BY MOUTH TWICE DAILY AT 0900 AND 2100 (DME) strips See Rx Instructions .Route .MEDSUPPLY Qty: 360 3RF Rx Instructions: CHECK BS TID, with meals One Touch Verio (DME) pen needle, diabetic [Pen Needle] 32 gauge x 5/32 needle See Rx Instructions .Route Qty: 360 3RF Rx Instructions: use to check blood sugar five times daily. (DME) OneTouch Verio test strips Strip See Rx Instructions .ROUTE .COMPLEX Qty: 100 0RF Dose Instruction: USE 1 STRIP TO CHECK GLUCOSE THREE TIMES DAILY BEFORE MEAL(S) Rx Instructions: USE 1 STRIP TO CHECK GLUCOSE THREE TIMES DAILY BEFORE MEAL(S) hydrocortisone [Anti-Itch (HC)] 1 % cream 1 applic topical DAILY PRN (Reason: skin irritation) Qty: 28.35 0RF Novolog FlexPen U-100 Insulin 100 unit/mL (3 mL) insulin pen See Rx Instructions .ROUTE .COMPLEX Qty: 30 3RF Dose Instruction: INJECT 3 TIMES DAILY WITH MEALS, BASED ON BLOOD SUGAR ON SLIDING SCALE PROVIDED. MAX DAILY AMOUNT: 45 UNITS. Rx Instructions: INJECT 3 TIMES DAILY WITH MEALS, BASED ON BLOOD SUGAR ON SLIDING SCALE PROVIDED. MAX DAILY AMOUNT: 45 UNITS. (DME) lancets 33 gauge misc See Rx Instructions .Route Qty: 360 3RF Rx Instructions: use to check blood sugar three times per day (DME) lancets [OneTouch Delica Plus Lancet] 30 gauge misc See Rx Instructions .ROUTE .COMPLEX Qty: 100 3RF Dose Instruction: USE TO CHECK BLOOD SUGARS THREE TIMES DAILY BEFORE MEALS Rx Instructions: USE TO CHECK BLOOD SUGARS THREE TIMES DAILY BEFORE MEALS (DME) pen needle See Rx Instructions .Route .MEDSUPPLY Qty: 360 3RF Rx Instructions: use 5 times a day as needed Benadryl 25 mg Capsule 25 mg PO BEDTIME PRN (Reason: Allergic Reaction) docusate sodium 100 mg capsule 100 mg PO DAILY Basaglar KwikPen U-100 Insulin 100 unit/mL (3 mL) insulin pen 20 unit SUBCUT Q12H Rx Instructions: 340b Discharge Orders: Discharge Order (Routine); Ordered 12/18/22 Ordered By: Ahsan Al Other Ambulatory Orders: DME: Walker (Order) Location: None Selected Ordered By: Aron Ortiz Physical Therapy Eval and Treat Outpatient (Order) Timeframe: 3 Days Facility: [facility] - Location: Physical Therapy Ordered By: Aron Ortiz Referrals: Aron Ortiz MD [Primary Care Provider] - Discharge Diet: Diabetic Discharge Activity: Increase activity as tolerated Patient Instructions: Opioid Safety Discharge Attestations Time Spent in Discharge Care*: less than 30 min Quality Metrics Clinical Quality Measures [ Cerebrovascular Accident (tia) { Contraindication to Antithrombotic: Other; Contraindication to Anticoagulation: Other; Contraindication to Statin: None; Statin prescribed;}] Coding Level of Care Code 24368 Diagnoses Brain TIA G45.9 CVA (cerebral vascular accident) I63.9 Diabetes mellitus E11.9 HTN (hypertension), benign I10 CKD (chronic kidney disease) N18.9 History of breast cancer Z85.3
[2022-12-18 12:08] LABS: Glucose Point of Care 317 mg/dL (70-110)
--- NOTE | 2022-12-18 13:13 | PC.NURSE ---
PRESCRIPTIONS CALLED INTO [facility].
== END 2022-12-18 13:16 | disposition home or self-care (01) | DRG 69 ==
LOC: ER 23:39 → MEDSURG 23:51
PROVIDERS: Admitting Provider Internal Medicine; Emergency Provider Emergency Medicine; PCP Family Medicine; Visit Provider Family Medicine
DX: G45.9 Transient cerebral ischemic attack, unspecified (principal); N18.4 Chronic kidney disease, stage 4 (severe); W19.XXXA Unspecified fall, initial encounter; E11.22 Type 2 diabetes mellitus with diabetic chronic kidney disease; I12.9 Hypertensive chronic kidney disease with stage 1 through stage 4 chronic kidney disease, or unspecified chronic kidney disease; C50.912 Malignant neoplasm of unspecified site of left female breast; C50.911 Malignant neoplasm of unspecified site of right female breast; Z79.811 Long term (current) use of aromatase inhibitors; I10 Essential (primary) hypertension; Z79.51 Long term (current) use of inhaled steroids; Z79.891 Long term (current) use of opiate analgesic; Z79.01 Long term (current) use of anticoagulants; Z79.4 Long term (current) use of insulin; E78.5 Hyperlipidemia, unspecified; Z87.891 Personal history of nicotine dependence; Z86.718 Personal history of other venous thrombosis and embolism; Z85.42 Personal history of malignant neoplasm of other parts of uterus; K59.00 Constipation, unspecified; Z90.5 Acquired absence of kidney; Z90.710 Acquired absence of both cervix and uterus
CPT/HCPCS: 36415; 36416; 70450; 70496; 70498; 70551; 71045; 80053; 80061; 80306; 81001; 82962; 83036; 85025; 85610; 85730; 92523; 92610; 93005; 96361; 96372; 96374; 97110; 97161; 97165; 97530; 99285; C8929; G0378; J1815; Q9967

== ENCOUNTER → 2023-05-09 12:34 | Outpatient (BNVA) | payer MEDICARE, SELFPAY | PROVIDERS: PCP Family Medicine; Visit Provider Nurse Practitioner Family | DX: E11.9 Type 2 diabetes mellitus without complications (principal) | CPT/HCPCS: 83036 ==

== ENCOUNTER → 2023-10-18 13:48 | Outpatient (BNVA) | payer MEDICARE, SELFPAY | PROVIDERS: PCP Family Medicine; Visit Provider Nurse Practitioner Family | DX: G89.29 Other chronic pain (principal); E11.9 Type 2 diabetes mellitus without complications; Z79.4 Long term (current) use of insulin; B37.9 Candidiasis, unspecified; I10 Essential (primary) hypertension; E78.5 Hyperlipidemia, unspecified; Z79.899 Other long term (current) drug therapy | CPT/HCPCS: 80053; 80061; 81003; 82570; 83036; 84156; 84443; 85025; 87077; 87086; 87184 ==

== ENCOUNTER → 2023-11-09 13:14 | Outpatient (BNVA) | payer MEDICARE, SELFPAY | PROVIDERS: PCP Family Medicine; Visit Provider Nurse Practitioner Family | DX: N39.0 Urinary tract infection, site not specified (principal); F02.80 Dementia in other diseases classified elsewhere, unspecified severity, without behavioral disturbance, psychotic disturbance, mood disturbance, and anxiety; E11.9 Type 2 diabetes mellitus without complications; Z79.4 Long term (current) use of insulin; G89.29 Other chronic pain; R80.9 Proteinuria, unspecified; Z79.899 Other long term (current) drug therapy | CPT/HCPCS: 81000 ==

== ENCOUNTER → 2024-01-25 09:58 | Outpatient (BNVA) | payer MEDICARE, SELFPAY | PROVIDERS: PCP Nurse Practitioner Family; Visit Provider Nurse Practitioner Family | DX: L98.0 Pyogenic granuloma (principal) | CPT/HCPCS: 88305 ==

== ENCOUNTER → 2024-05-02 09:13 | Outpatient (BNVA) | payer MEDICARE, SELFPAY | PROVIDERS: PCP Nurse Practitioner Family; Visit Provider Nurse Practitioner Family | DX: I10 Essential (primary) hypertension (principal); N39.0 Urinary tract infection, site not specified; E11.9 Type 2 diabetes mellitus without complications; E78.5 Hyperlipidemia, unspecified | CPT/HCPCS: 80053; 80061; 81000; 83036; 85025 ==

== ENCOUNTER 2024-07-18 08:42 | Outpatient (CLI) | payer MEDICARE, SELFPAY ==
--- NOTE | 2024-07-18 09:08 | US_ITS ---
WS: [id number] BILATERAL 3D TOMOSYNTHESIS DIGITAL DIAGNOSTIC MAMMOGRAPHY WITH CAD CLINICAL INFORMATION: R22.9 - Localized swelling, mass and lump, unspecified HISTORY: History of bilateral breast cancer COMPARISON: None. TECHNIQUE: Bilateral CC, MLO, and ML views. FINDINGS: The breasts are composed of heterogeneous fibroglandular density, which can limit the detection of sm all underlying mass lesions. Skin thickening in both breast. Dystrophic calcifications bilaterally. V ascular calcifications. Surgical clips anterior RIGHT breast. Biopsy clip LEFT breast posteriorly. Palpable marker overlying an irregular density or lymph node RIGHT axilla posteriorly measuring 1.5 c m. Ultrasound is pending. ULTRASOUND BREAST RIGHT TECHNIQUE: Ultrasound right breast focused area of concern. CLINICAL INFORMATION: R22.9 - Localized swelling, mass and lump, unspecified FINDINGS: Ultrasound RIGHT breast area of concern RIGHT axilla near the chest wall posteriorly. Densely shadowi ng irregular hypoechoic mass or lymph node in the RIGHT axilla area of concern. Findings have a suspi cious appearance measuring 1.5 x 1.0 1.4 cm. Recommend further evaluation with ultrasound-guided biop sy. US/US breast RT limited* [id number] IMPRESSION: DENSITY: The breasts are heterogeneously dense, which may obscure small masses. BI-RADS: 4 - Suspicious Finding - Biopsy Should Be Considered FOLLOW UP: US Guided Biopsy Recommended Recommend ultrasound-guided biopsy of the RIGHT axillary mass.
--- NOTE | 2024-07-18 10:00 | MM_ITS ---
WS: [id number] BILATERAL 3D TOMOSYNTHESIS DIGITAL DIAGNOSTIC MAMMOGRAPHY WITH CAD CLINICAL INFORMATION: R22.9 - Localized swelling, mass and lump, unspecified HISTORY: History of bilateral breast cancer COMPARISON: None. TECHNIQUE: Bilateral CC, MLO, and ML views. FINDINGS: The breasts are composed of heterogeneous fibroglandular density, which can limit the detection of sm all underlying mass lesions. Skin thickening in both breast. Dystrophic calcifications bilaterally. V ascular calcifications. Surgical clips anterior RIGHT breast. Biopsy clip LEFT breast posteriorly. Palpable marker overlying an irregular density or lymph node RIGHT axilla posteriorly measuring 1.5 c m. Ultrasound is pending. ULTRASOUND BREAST RIGHT TECHNIQUE: Ultrasound right breast focused area of concern. CLINICAL INFORMATION: R22.9 - Localized swelling, mass and lump, unspecified FINDINGS: Ultrasound RIGHT breast area of concern RIGHT axilla near the chest wall posteriorly. Densely shadowi ng irregular hypoechoic mass or lymph node in the RIGHT axilla area of concern. Findings have a suspi cious appearance measuring 1.5 x 1.0 1.4 cm. Recommend further evaluation with ultrasound-guided biop sy. MM/MM diag BI tomosynthesis [id number] IMPRESSION: DENSITY: The breasts are heterogeneously dense, which may obscure small masses. BI-RADS: 4 - Suspicious Finding - Biopsy Should Be Considered FOLLOW UP: US Guided Biopsy Recommended Recommend ultrasound-guided biopsy of the RIGHT axillary mass.
== END 2024-07-18 08:43 | disposition home or self-care (01) ==
LOC: RAD 08:43
PROVIDERS: PCP Nurse Practitioner Family; Visit Provider Nurse Practitioner Family
DX: R22.9 Localized swelling, mass and lump, unspecified (principal); Z85.3 Personal history of malignant neoplasm of breast
CPT/HCPCS: 76642; 77062; G0279

== ENCOUNTER 2024-07-31 13:36 | Outpatient (CLI) | payer MEDICARE, SELFPAY ==
[2024-08-05 07:34] LABS: Breast Profile ER,PR,HER2,Ki-6 See Report
== END 2024-07-31 13:37 | disposition home or self-care (01) ==
LOC: RAD 13:36
PROVIDERS: PCP Nurse Practitioner Family; Visit Provider Nurse Practitioner Family
DX: C50.611 Malignant neoplasm of axillary tail of right female breast (principal)
CPT/HCPCS: 19083; 88305; 88361; 88374

== ENCOUNTER 2024-10-24 19:41 | Inpatient (IN) | payer MEDICARE, SELFPAY ==
[2024-10-24 19:44] VITALS: BP 116/64; PULSE 98; RESP 18; TEMP 37.1; O2SAT 93; BMI 29.9
--- NOTE | 2024-10-24 19:49 | XRR_ITS ---
PROCEDURE INFORMATION: Exam: XR Chest Exam date and time: 10/24/2024 8:00 PM Age: 74 years old Clinical indication: Other: Weakness; Additional info: Maria Elena TECHNIQUE: Imaging protocol: Radiologic exam of the chest. Views: 1 view. COMPARISON: CR XR chest 1V portable [id number] 12/15/2022 10:14 PM FINDINGS: Lungs: Bibasilar atelectasis. No lobar consolidations. Pleural spaces: Unremarkable. No pleural effusion. No pneumothorax. Heart/Mediastinum: Unremarkable. No cardiomegaly. Bones/joints: Unremarkable. Soft tissues: Bilateral chest wall surgical clips. XR/XR chest 1V portable [id number] IMPRESSION: As above.
--- NOTE | 2024-10-24 19:51 | ED_ITS ---
HPI - Weakness 2 General: Chief complaint: Weakness Stated complaint: unable to walk Time Seen by Provider: 10/24/24 19:43 History of Present Illness: 74-year-old female brought in via EMS fo r generalized weakness. Patient has been having some significant generalized weakness but a lot worse over the last couple days. She is currently being treated for breast cancer with chemotherapy at home with pills. told EMS over the last 2 days she got a lot weaker and today he can hardly get up to help her walk to the restroom. Associated symptoms: Denies chest pain, nausea or vomiting Review of Systems 2 Card: Denies: chest pain or palpitations Resp: Reports: non-productive cough; Denies: dyspnea GI: Denies: abdominal pain, nausea or vomiting Neuro: Reports: weakness in extremities and difficulty walking PFSH ED 2 PFSH: Medical History (Updated 10/24/24 @ 21:54 by Giovanni Foley DO) Urinary tract infection Lung nodule Breast cancer screening Screening for lung cancer History of smoking Smoker Constipation DVT (deep venous thrombosis) Uterine cancer Breast cancer right and left Diabetes mellitus DVT (deep venous thrombosis) s/p hysterectomy x 2 episodes in one year, last ~1982 Dyslipidemia HTN (hypertension), benign Diabetes Adrenal mass Renal mass Surgical History (Updated 10/25/24 @ 03:15 by Irina Engle MD) S/P ELEAZAR-BSO (total abdominal hysterectomy and bilateral salpingo-oophorectomy) Hx of partial adrenalectomy History of nephrectomy, right Status post incision and drainage (02/14/21) Abdominal wall abscess Status post left breast lumpectomy Status post right breast lumpectomy S/P IVC filter H/O total hysterectomy Status post laparoscopic cholecystectomy Family History Mother , AT AGE OF 71 BONE CANCER Cancer Other Diabetes Social History (Updated 10/25/24 @ 03:16 by Irina Engle MD) Smoking and tobacco/nicotine status: never used tobacco/nicotine Quit status (tobacco/nicotine): has quit using Year quit tobacco: January 2021 Former quit date comment: 1ppd x 50 years Alcohol intake: never Substance/Drug Use: never Household members: spouse Marital status: Current occupational status: disabled Physical Exam 2 Const: COMMON NORMALS: patient oriented x3 GENERAL APPEARANCE: cooperative Resp: COMMON NORMALS: normal respiratory effort and No retractions Cardio: COMMON NORMALS: regular rate and regular rhythm RATE: regular rate RHYTHM: regular rhythm GI: COMMON NORMALS: Soft to palpation and non-tender PALPATION: Yes Soft to palpation Neuro: COMMON NORMALS: patient oriented x3 and moves all extremities OTHER: Generalized weakness Psych: COMMON NORMALS: mental status grossly normal and cooperative Course 2 Vital Signs: Vital signs: Vital Signs Temperature 98.1 F 10/25/24 08:00 Pulse Rate 80 10/25/24 08:57 Respiratory Rate 16 10/25/24 10:37 Blood Pressure 137/75 10/25/24 08:00 Pulse Oximetry 95 10/25/24 08:57 Oxygen Delivery Me thod Room Air 10/25/24 08:57 MDM - Weakness Medical Decision Making Patient's labs were ordered reviewed. Her urine is consistent with a urinary tract infection. Patient other labs were consistent with her baseline when compared to her prior labs.. Patient will be admitted for inpatient treatment since she is at higher risk with her age and on chemotherapy. Patient was admitted to Dr. iqbal for further management. Lab Data 10/25/24 04:24 10/25/24 04:24 Radiology Impressions Chest X-Ray 10/24/24 19:49 IMPRESSION: As above. Laboratory Results WBC 6.08 10^3/uL (3.29-11.43) 10/24/24 20: RBC 4.04 10^6/uL (3.85-5.65) 10/24/24 20:25 Hgb 11.40 g/dL (11.27-16.99) 10/24/24 20:25 Hct 36.6 % (36-47) 10/24/24 20:25 MCV 90.6 fl (85-98) 10/24/24 20: MCH 28.2 pg (27-33) 10/24/24 20: MCHC 31.1 g/dL (30-55) 10/24/24 20:25 RDW 14.4 % (12.1-15.1) 10/24/24 20:25 Plt Count 176 10^3/cmm (157-399) 10/24/24 20: MPV 9.3 fL (7.4-10.4) 10/24/24 20:25 Neut % (Auto) 75.9 % 10/24/24 20:25 Lymph % (Auto) 17.9 % 10/24/24 20:25 [place] % (Auto) 4.6 % 10/24/24 20:25 Eos % (Auto) 0.8 % 10/24/24 20:25 Baso % (Auto) 0.3 % 10/24/24 20:25 Neut # (Auto) 4.61 10^3/uL (1.8-7.7) 10/24/24 20:25 Lymph # (Auto) 1.1 10^3/uL (0.8-4.8) 10/24/24 20: Newton # (Auto) 0.3 10^3/uL (0.2-0.9) 10/24/24 20: Eos # (Auto) 0.1 10^3/uL (0.0-0.8) 10/24/24 20:25 Baso # (Auto) 0.0 10^3/uL (0.0-0.1) 10/24/24 20:25 Nucleated RBC % (auto) 0 % 10/24/24 20: Nucleated RBCs # 0.0 /100WBC 10/24/24 20:25 Sodium 138 mmol/L (136-145) 10/24/24 20:25 Potassium 4.4 mmol/L (3.5-5.1) 10/24/24 20:25 Chloride 102 mmol/L (98-107) 10/24/24 20:25 Carbon Dioxide 24 mmol/L (22-29) 10/24/24 20:25 Anion Gap 16.4 (5-19) 10/24/24 20:25 BUN 31 mg/dL (8-23) H 10/24/24 20:25 Creatinine 2.0 mg/dL (0.5-0.9) H 10/24/24 20:25 GFR Calculation Not Reportable 10/24/24 20: Glucose 267 mg/dL (65-115) H 10/24/24 20:25 Calculated Osmolality 302 mOsm/kg (285-295) H 10/24/24 20:25 Calcium 9.3 mg/dL (8.5-10.5) 10/24/24: Magnesium 1.6 mg/dL (1.7-2.3) L 10/24/24 20: Total Bilirubin 0.3 mg/dL (0.15-1.2) 10/24/24 20: AST 11 U/L (0-32) 10/24/24 20:25 ALT 11 U/L (0-33) 10/24/24 20:25 Alkaline Phosphatase 117 U/L (35-105) H 10/24/24 20: Troponin T Baseline 23 ng/L (0-10) H 10/24/24 20: Total Protein 6.7 g/dL (6.6-8.7) 10/24/24 20: Albumin 3.9 g/dL (3.5-5.2) 10/24/24 20: Globulin 2.8 g/dL (1.3-4.6) 10/24/24 20: Urine Color Yellow (Yellow) 10/24/24 21:35 Urine Appearance Clear (CLEAR) 10/24/24 21: Urine pH 5.0 (5-7) 10/24/24 21:35 Ur Specific [place] 1.020 (1.005-1.030) 10/24/24 21:35 Urine Protein 2+ (Negative) A 10/24/24 21:35 Urine Glucose (UA) 2+ (Normal) H 10/24/24 21:35 Urine Ketones Negative (Negative) 10/24/24 21: Urine Blood Negative (Negative) 10/24/24 21:35 Urine Nitrate Positive (Negative) A 10/24/24 21: Urine Bilirubin Negative (Negative) 10/24/24 21: Urine Urobilinogen 0.2 mg/dL (Negative) 10/24/24 21:35 Ur Leukocyte Esterase Trace (Negative) A 10/24/24 21:35 Urine RBC 0-2 /hpf (0-2) 10/24/24 21:35 Urine WBC 11-20 /hpf (0-5) H 10/24/24 21:35 Ur Squamous Epith Cells 0-5 /hpf (0-5) 10/24/24 21:35 Amorphous Sediment Not Reportable 10/24/24 21:35 Urine Bacteria 4+ /hpf (NONE) H 10/24/24 21:35 Hyaline Casts 2.05 /lpf 10/24/24 21:35 Coronavirus (PCR) Negative (Negative) 10/24/24 20:36 Influenza A (PCR) Negative (Negative) 10/24/24 20:36 Influenza Type B (PCR) Negative (Negative) 10/24/24 20:36 RSV (PCR) Negative (Negative) 10/24/24 20:36 All radiology interpretation(s) finalized by discharge Discharge Plan Discharge Patient Disposition: Admitted As Inpatient Admit Provider: Irina Engle Clinical Impression: Acute cystitis without hematuria, Generalized weakness Condition: Stable Coding Level of Care Code ED Twisting Frame Changer for Chg Fwd Related Data Home Medications Medication Instructions Recorded Confirmed insulin glargine 100 unit/mL (3 22 unit SUBCUT Q12H 05/02/24 10/25/24 mL) subcutaneous pen (Basaglar KwikPen U-100 Insulin) abemaciclib 100 mg tablet 100 mg PO BID 10/25/24 10/25/24 (Verzenio) amlodipine 10 mg tablet 10 mg PO DAILY 10/25/24 10/25/24 apixaban 5 mg tablet (Eliquis) 5 mg PO BID 10/25/24 10/25/24 ergocalciferol (vitamin D2) 1,250 50,000 unit PO UNK 10/25/24 10/25/24 mcg (50,000 unit) capsule insulin aspart See Protocol SUBCUT TID 10/25/24 10/25/24 (niacinamide)(U-100) 100 unit/mL(3 mL) subcutaneous pen (Fiasp FlexTouch U-100 Insulin) letrozole 2.5 mg tablet 2.5 mg PO DAILY 10/25/24 10/25/24 Previous Rx's Medication Instructions Recorded anastrozole 1 mg tablet 1 mg PO DAILY 90 days #90 tabs 07/23/24 atorvastatin 40 mg tablet 40 mg PO BEDTIME 90 days #90 tabs 08/05/24 paroxetine HCl 30 mg tablet 30 mg PO EVERY OTHER DAY 90 days 08/14/24 #90 tabs pantoprazole 40 mg tablet,delayed 40 mg PO DAILY 90 days #90 tabs 10/01/24 release trazodone 100 mg tablet 100 mg PO BEDTIME 90 days #90 tabs 10/01/24 ondansetron HCl 4 mg tablet 4 mg PO Q8H PRN nausea and 10/10/24 vomiting #30 tabs hydrocodone 10 mg-acetaminophen 1 tab PO Q8H PRN pain 30 days #90 10/24/24 325 mg tablet tabs Allergies Allergy/AdvReac Type Severity Reaction Status Date / Time No Known Allergies Allergy Verified 10/24/24 19:50
[2024-10-24 20:28] LABS: Basophils % 0.3 %; Eosinophils # 0.1 10^3/uL (0.0-0.8); Eosinophils % 0.8 %; Hematocrit 36.6 % (36-47); Lymphocytes # 1.1 10^3/uL (0.8-4.8); Lymphocytes % 17.9 %; Mean Corpuscular HGB Conc 31.1 g/dL (30-55); Mean Corpuscular Hemoglobin 28.2 pg (27-33); Mean Corpuscular Volume 90.6 fl (85-98); Mean Platelet Volume 9.3 fL (7.4-10.4); Monocytes # 0.3 10^3/uL (0.2-0.9); Monocytes % 4.6 %; Neutrophils # 4.61 10^3/uL (1.8-7.7); Neutrophils % 75.9 %; Nucleated Red Blood Cells % 0 %; Platelet Count 176 10^3/cmm (157-399); Red Blood Count 4.04 10^6/uL (3.85-5.65); Red Cell Distribution Width 14.4 % (12.1-15.1); White Blood Count 6.08 10^3/uL (3.29-11.43)
[2024-10-24 20:32] VITALS: BP 118/64; PULSE 93; O2SAT 93
[2024-10-24 20:45] LABS: Alanine Aminotransferase 11 U/L (0-33); Albumin Level 3.9 g/dL (3.5-5.2); Alkaline Phosphatase 117 U/L (35-105); Anion Gap 16.4 (5-19); Aspartate Amino Transferase 11 U/L (0-32); Blood Urea Nitrogen 31 mg/dL (8-23); Calcium 9.3 mg/dL (8.5-10.5); Carbon Dioxide 24 mmol/L (22-29); Chloride 102 mmol/L (98-107); Creatinine Clr Calc Pharmacy 25.6524; Globulin 2.8 g/dL (1.3-4.6); Glucose 267 mg/dL (65-115); Magnesium 1.6 mg/dL (1.7-2.3); Osmolality Calculated 302 mOsm/kg (285-295); Potassium 4.4 mmol/L (3.5-5.1); Sodium 138 mmol/L (136-145); Total Bilirubin 0.3 mg/dL (0.15-1.2); Total Protein 6.7 g/dL (6.6-8.7)
[2024-10-24 20:46] LABS: Troponin(5th) Baseline 23 ng/L (0-10)
[2024-10-24 21:15] LABS: Covid PCR NEGATIVE (Negative); Influenza A NEGATIVE (Negative); Influenza B NEGATIVE (Negative); Respiratory Syncytial Virus Ce NEGATIVE (Negative)
[2024-10-24 21:36] VITALS: PULSE 92; RESP 16; O2SAT 94
[2024-10-24 21:39] LABS: Bilirubin Urine Negative (Negative); Blood Urine Negative (Negative); Glucose Urine UA 2+ (Normal); Ketones Urine Negative (Negative); Leukocyte Esterase Urine Trace (Negative); Nitrate Urine Positive (Negative); Protein Urine 2+ (Negative); Urine Appearance Clear (CLEAR); Urine Color Yellow (Yellow); Urobilinogen Urine 0.2 mg/dL (Negative)
[2024-10-24 21:44] LABS: Add Urine Microscopic? YES; Bacteria Urine 4+ /hpf; Hyaline Casts Urine 2.05 /lpf; RBC Urine 0-2 /hpf (0-2); Squamous Epithelial Cell Urine 0-5 /hpf (0-5)
[2024-10-24 21:48] LABS: Add Urine Culture? Yes
--- NOTE | 2024-10-24 22:03 | P.HP_ITS ---
Providers/Chief Complaint 2 Primary Care Provider: Chad Stern Chief Complaint: unable to walking History of Present Illness Amaris Larsen is a 74 yo woman w/ a hx of L breast cancer about 30yrs s/p chemo/XRT, and now R. breast cancer dx'ed in 07/2024 on chemotherapy, renal cell carcinoma s/p R. nephrectomy and adrenalectomy at [facility] in [place], [place] in 06/2021, R. LE DVT in 06/2021 on Eliquis, CKDIIIB, metabolic syndrome, TIA in 11/2022, and Depression, who presents to the ED on 10/24/2024, via EMS, w/ 2 days of generalized weakness. The patient patient states that starting approximately 2 weeks ago, she noticed that she would shake and was weak. She normally uses a walker and gets around w/o assistance. However, in the last 2 weeks, she has needed support from her for ambulation. Her generalized weakness progressed to the point that her could no longer physically help her, so he called EMS. She endorses chills, dizziness, light headedness, SOB w/ exertion, productive cough of brown sputum, nasal congestion, watery diarrhea, increased urinary urgency or frequency. She denies fevers, falls, head trauma or headaches, syncope, wheezing, nasal discharge, CP, palpitations In the ED, her vital signs are within normal limits. Her labs were unremarkable except for a stable Cr of 2.0, BG of 267, & Mg of 1.6. Her UA was concerning for a UTI. Her COVID-19/influenza A&B and RSV PCR were negative. Her CXR showed bibasilar atelectasis. Review of Systems 2 Const: Reports: chills and change in appetite (poor ); Denies: fever(s) Eyes: Denies: change in vision ENMT: Reports: nasal congestion; Denies: odynophagia, ear or mastoid pain, ear discharge or nasal discharge Card: Reports: lightheadedness; Denies: chest pain, palpitations, edema or swelling of feet/ankles Resp: Reports: dyspnea (with exertion ) and productive cough; Denies: wheezing GI: Reports: abdominal pain (LLQ abd pain ), diarrhea (watery ) and other (blood when she wipes, due to hemorrhoids. ); Denies: nausea, vomiting, hematochezia or melena : Reports: urinary frequency and urinary urgency; Denies: difficulty voiding, dysuria or hematuria Musc: Reports: other (b/l LE pain ) Skin/Breast: Denies: rash or new lesions Neuro: Reports: dizziness and other (no syncope ); Denies: headache(s) Psych: Denies: anxiety, depression, suicidal ideation or homicidal ideation Endo: Reports: heat intolerance Joe/Lymph: Reports: easy bruising (on anticoagulation ) and easy bleeding (on anticoagulation ) Medications/Allergies Home Medications Medication Instructions Recorded Confirmed Last Taken Type lancets 33 gauge #360 ea 05/19/22 05/02/24 Unknown Rx pen needle #360 ea 10/11/22 05/02/24 Unknown Rx strips #360 ea 11/15/22 05/02/24 Unknown Rx diphenhydramine HCl 25 mg capsule 25 mg PO BEDTIME PRN Allergic 12/16/22 05/02/24 Unknown History (Benadryl) Reaction docusate sodium 100 mg capsule 100 mg PO DAILY 12/16/22 05/02/24 Unknown History hydrocortisone 1 % topical cream 1 applic topical DAILY PRN skin 01/24/23 05/02/24 Unknown Rx (Anti-Itch (hydrocortisone)) irritation #28.35 grams glucometer testing kit #1 ea 02/10/23 05/02/24 Unknown Rx blood sugar diagnostic (OneTouch #100 ea 06/26/23 05/02/24 Unknown Rx Verio test strips) albuterol sulfate 90 mcg/actuation 1 inh inhalation QID PRN shortness 07/18/23 05/02/24 Unknown Rx aerosol inhaler (Ventolin HFA) of breath or wheezing #8.5 grams lancets 30 gauge (OneTouch Delica #100 ea 07/18/23 05/02/24 Unknown Rx Plus Lancet) umeclidinium 62.5 mcg/actuation 1 inh inhalation DAILY #30 ea 07/18/23 05/02/24 Unknown Rx blister powder for inhalation (Incruse Ellipta) pen needle, diabetic 32 gauge x #360 ea 07/26/23 05/02/24 Unknown Rx 5/32 (Pen Needle) pen needle, diabetic 31 gauge x #150 ea 01/17/24 05/02/24 Unknown Rx 3/16 (BD Ultra-Fine Mini Pen Needle) apixaban 5 mg tablet (Eliquis) See Rx Instructions .Route 01/19/24 05/02/24 Unknown Rx .COMPLEX #180 tabs blood sugar diagnostic (OneTouch #100 ea 03/07/24 05/02/24 Unknown Rx Verio test strips) ergocalciferol (vitamin D2) 1,250 See Rx Instructions .Route 03/28/24 05/02/24 Unknown Rx mcg (50,000 unit) capsule .COMPLEX #12 caps insulin aspart 10 unit SUBCUT TID #15 mL 04/10/24 05/02/24 Unknown Rx (niacinamide)(U-100) 100 unit/mL(3 mL) subcutaneous pen (Fiasp FlexTouch U-100 Insulin) insulin glargine 100 unit/mL (3 See Rx Instructions .Route .COMPLEX 05/02/24 Unknown History mL) subcutaneous pen (Basaglar KwikPen U-100 Insulin) amlodipine 10 mg tablet See Rx Instructions .Route 07/11/24 Unknown Rx .COMPLEX #90 tabs anastrozole 1 mg tablet 1 mg PO DAILY 90 days #90 tabs 07/23/24 Unknown Rx atorvastatin 40 mg tablet 40 mg PO BEDTIME 90 days #90 tabs 08/05/24 Unknown Rx nystatin 100,000 unit/gram topical See Rx Instructions .Route 08/05/24 Unknown Rx cream .COMPLEX #30 grams paroxetine HCl 30 mg tablet 30 mg PO EVERY OTHER DAY 90 days 08/14/24 Unknown Rx #90 tabs pantoprazole 40 mg tablet,delayed 40 mg PO DAILY 90 days #90 tabs 10/01/24 Unknown Rx release trazodone 100 mg tablet 100 mg PO BEDTIME 90 days #90 tabs 10/01/24 Unknown Rx ondansetron HCl 4 mg tablet 4 mg PO Q8H PRN nausea and 10/10/24 Unknown Rx vomiting #30 tabs hydrocodone 10 mg-acetaminophen 1 tab PO Q8H PRN pain 30 days #90 10/24/24 Unknown Rx 325 mg tablet tabs Allergies Allergy/AdvReac Type Severity Reaction Status Date / Time No Known Allergies Allergy Verified 10/24/24 19:50 PFSH Acute 2 PFSH: Medical History (Updated 10/24/24 @ 21:54 by Giovanni Foley DO) Urinary tract infection Lung nodule Breast cancer screening Screening for lung cancer History of smoking Smoker Constipation DVT (deep venous thrombosis) Uterine cancer Breast cancer right and left Diabetes mellitus DVT (deep venous thrombosis) s/p hysterectomy x 2 episodes in one year, last ~1982 Dyslipidemia HTN (hypertension), benign Diabetes Adrenal mass Renal mass Surgical History (Updated 10/25/24 @ 03:15 by Irina Engle MD) S/P ELEAZAR-BSO (total abdominal hysterectomy and bilateral salpingo-oophorectomy) Hx of partial adrenalectomy History of nephrectomy, right Status post incision and drainage (02/14/21) Abdominal wall abscess Status post left breast lumpectomy Status post right breast lumpectomy S/P IVC filter H/O total hysterectomy Status post laparoscopic cholecystectomy Family History Mother , AT AGE OF 71 BONE CANCER Cancer Other Diabetes Social History (Updated 10/25/24 @ 03:16 by Irina Engle MD) Smoking and tobacco/nicotine status: never used tobacco/nicotine Quit status (tobacco/nicotine): has quit using Year quit tobacco: January 2021 Former quit date comment: 1ppd x 50 years Alcohol intake: never Substance/Drug Use: never Household members: spouse Marital status: Current occupational status: disabled Vitals/I&O/Wt Last Vital Signs Temp 98.7 F 10/24/24 19:44 Pulse 92 10/24/24 21:36 Resp 16 10/24/24 21:36 BP 118/64 10/24/24 20:32 Pulse Ox 94 10/24/24 21:36 O2 Del Method Room Air 10/24/24 20:32 10/24/24 10/24/24 10/24/24 06:59 14:59 22:59 Intake Total 0 / 0 Balance 0 / 0 Weight last 48 hrs Weight 81.647 kg Physical Exam 2 Const: GENERAL APPEARANCE: cooperative and comfortable O RIENTATION/CONSCIOUSNESS: Yes awake, Yes oriented to person, Yes oriented to place and Yes oriented to time HENMT: HEAD & SCALP: normocephalic and atraumatic NOSE: Normal external nose present EXTERNAL EAR: Yes external ears normal MOUTH: Normal oral and palatal mucosa present THROAT: posterior oropharynx normal Eye: OTHER: EOMI, PERRL, conjunctiva normal b/l Neck/C-Spine: GENERAL: Yes normal visual inspection and Yes trachea midline THYROID: Thyroid normal CAROTIDS: No bruit CERVICAL SPINE: Yes cervical ROM normal Lymph: OTHER: No cervical or supraclavicular LAD. Resp: OTHER: Decreased breath sounds in the left lower lung lobe. No wheezes, rales or rhonchi. Cardio: OTHER: RRR, no m/r/g or clicks. 2+ radial and DP pulses. No carotid bruits GI: OTHER: BS+, NT, ND, no guarding, no rigidity, no rebound tenderness, no hepatosplenomegaly. Extremity: GENERAL: No clubbing, No cyanosis and No edema Neuro: CRANIAL NERVES: Yes CN normal except as noted SPEECH: speech normal SENSORY EXAM: Yes sensory level loss detected MOTOR EXAM: 5/5 motor strength present throughout and Normal motor muscle tone present throughout Psych: APPEARANCE: Yes grossly normal ATTITUDE: Yes calm and Yes engaged ACTIVITY/MOTOR BEHAVIOR: Yes appropriate eye contact SPEECH: Yes normal speech MOOD & AFFECT: Yes euthymic mood THOUGHT PROCESS: Normal thought process present THOUGHT CONTENT: Yes Normal thought content present A TTENTION/CONCENTRATION: Yes attention grossly intact MEMORY/COGNITION: Yes memory grossly intact Skin: GENERAL SKIN EXAM: no rashes or lesions noted Data 10/24/24 20:25 10/24/24 20:25 A&P Assessment and plan (1) UTI (urinary tract infection): (2) Generalized weakness: Shun Larsen is a 74 yo woman w/ a hx of L breast cancer about 30yrs s/p chemo/XRT, and now R. breast cancer dx'ed in 07/2024 on chemotherapy, renal cell carcinoma s/p R. nephrectomy and adrenalectomy at [facility] in [place], [place] in 06/2021, R. LE DVT in 06/2021 on Eliquis, CKDIIIB, metabolic syndrome, TIA in 11/2022, and Depression, who presents to the ED on 10/24/2024, via EMS, w/ 2 days of generalized weakness. In the ED, her vital signs are within normal limits. Her labs were unremarkable except for a stable Cr of 2.0, BG of 267, & Mg of 1.6. Her UA was concerning for a UTI. Her COVID-19/influenza A&B and RSV PCR were negative. Her CXR showed bibasilar atelectasis. #UTI: in the setting of immunocompromised and diabetes. F/u UCx. - Started Cefepime. #Generalized weakness: Defer to day hospitalist to order PT/OT. #IDDM2: Give Insulin lispro subq 7 units x 1. Start Insulin glargine 20units BID plus medium dose sliding scale. Monitor BG levels and adjust insulin dosing. #R. LE DVT in 06/2021: On Eliquis - held. Started full dose lovenox. #HTN: Held home meds #HLD: Resumed home meds #GERD: Resumed PPI #CKDIIIB: Monitor renal function #Depression/Insomnia: Resumed Trazodone. Held Paroxetine #Breast cancer: Continue Anastrazole #COPD: Order duoneb prn. Held her long acting inhaller. DVT ppx: Lovenox GI ppx: Pantoprazole. Attestations 2 Medical Necessity Statement*: >70mins was spent on chart review, patient history and physical exam, lab/image reveiw, and plan formulation. Coding Level of Care Code Acute Code for Chg Fwd Other Coding Information Focused coding review requested Diagnoses UTI (urinary tract infection) N39.0 Generalized weakness R53.1
[2024-10-24] MEDS: cefTRIAXone 1,000 mg SDV 1000 MG IVP (23:29)
[2024-10-24] MEDS: magnesium sulfate premix 2 GM/50 ML PIGGYBACK IV (23:30)
[2024-10-24 23:31] VITALS: BP 151/79; PULSE 86; RESP 18; O2SAT 96
[2024-10-24 23:32] VITALS: BP 151/79; PULSE 85; O2SAT 94
[2024-10-24] MEDS: enoxaparin 40 mg/0.4 mL Syringe 80 MG SUBCUT (23:41)
[2024-10-24] MEDS: sodium chloride 0.9% 1,000 ML 75 ML IV (23:42)
[2024-10-24] MEDS: cefepime 1,000 mg SDV 1000 MG IVP (23:42)
[2024-10-24 23:57] VITALS: BP 151/79; PULSE 81; O2SAT 92
[2024-10-25] VITALS (9 sets, daily range): BP systolic 116–162; BP diastolic 63–81; PULSE 78–91; RESP 14–18; TEMP 36.5–37.1; O2SAT 93–99; BMI 28.1
[2024-10-25 03:57] LABS: Glucose Point of Care 194 mg/dL (70-110)
[2024-10-25] MEDS: insulin lispro 100 unit/1 mL 7 UNIT SUBCUT (04:21)
[2024-10-25 04:44] LABS: Basophils % 0.3 %; Eosinophils % 0.6 %; Hematocrit 35.6 % (36-47); Lymphocytes # 1.8 10^3/uL (0.8-4.8); Lymphocytes % 26.6 %; Mean Corpuscular HGB Conc 31.2 g/dL (30-55); Mean Corpuscular Hemoglobin 28.7 pg (27-33); Mean Platelet Volume 9.4 fL (7.4-10.4); Monocytes # 0.3 10^3/uL (0.2-0.9); Monocytes % 4.1 %; Neutrophils # 4.62 10^3/uL (1.8-7.7); Nucleated Red Blood Cells % 0 %; Platelet Count 172 10^3/cmm (157-399); Red Blood Count 3.87 10^6/uL (3.85-5.65); Red Cell Distribution Width 14.5 % (12.1-15.1)
[2024-10-25 04:56] LABS: INR 1.28 (0.8-1.2)
[2024-10-25 04:57] LABS: Partial Thromboplastin Time 43.1 SECONDS (23.9-36.7)
[2024-10-25 05:04] LABS: Estmated Average Glucose 214; Hemoglobin A1C 9.1 % (4.0-6.0)
[2024-10-25 05:13] LABS: Blood Urea Nitrogen 30 mg/dL (8-23); Calcium 9.2 mg/dL (8.5-10.5); Carbon Dioxide 22 mmol/L (22-29); Chloride 102 mmol/L (98-107); Creatinine Clr Calc Pharmacy 23.7943; Glucose 190 mg/dL (65-115); Magnesium 2.1 mg/dL (1.7-2.3); Osmolality Calculated 297 mOsm/kg (285-295); Phosphorus 2.8 mg/dL (2.5-4.5); Sodium 138 mmol/L (136-145); Thyroid Stimulating Hormone 0.92 uIU/mL (0.27-4.20)
[2024-10-25] MEDS: pantoprazole DR 40 mg Tablet PO (06:14)
[2024-10-25 06:24] LABS: Glucose Point of Care 143 mg/dL (70-110)
[2024-10-25] MEDS: insulin lispro 100 unit/1 mL SUBCUT ×3 (09:29→22:28)
[2024-10-25] MEDS: insulin glargine 100 units/1 mL 20 UNIT SUBCUT ×2 (09:29→22:28)
[2024-10-25] MEDS: oxyCODONE-APAP 5-325 mg Tablet 1 TAB PO (10:37)
[2024-10-25 12:03] LABS: Glucose Point of Care 132 mg/dL (70-110)
--- NOTE | 2024-10-25 12:08 | P.PN_ITS ---
Subjective 2 Subjective: Admitted overnight. Seen with spouse at bedside. Patient laying in bed. Denies any nausea, vomiting, headache. States she is feeling slightly better than she had been. Denies any dysuria. Does complain of diarrhea which has been going on and off for last 10 days. As per currently she has been constipated but since starting her new chemotherapy she has been having diarrhea on and off. Vitals/I&O/Wt Last Vital Signs Temp 97.7 F 10/25/24 12:00 Pulse 80 10/25/24 12:00 Resp 14 10/25/24 12:00 BP 134/77 10/25/24 12:00 Pulse Ox 94 10/25/24 12:00 O2 Del Method Room Air 10/25/24 12:00 10/24/24 10/25/24 10/25/24 22:59 06:59 14:59 Intake Total 0 / 0 550 / 550 Balance 0 / 0 550 / 550 Weight last 48 hrs Weight 77.292 kg Weight 76.657 kg Weight 81.647 kg Physical Exam 2 Const: GENERAL APPEARANCE: cooperative and comfortable O RIENTATION/CONSCIOUSNESS: Yes awake, Yes oriented to person, Yes oriented to place and Yes oriented to time HENMT: COMMON NORMALS: normocephalic, atraumatic, external ears normal and Normal external nose present HEAD & SCALP: normocephalic and atraumatic N OSE: Normal external nose present EXTERNAL EAR: Yes external ears normal M OUTH: Normal oral and palatal mucosa present THROAT: posterior oropharynx normal Eye: OTHER: EOMI, PERRL, conjunctiva normal b/l Neck/C-Spine: COMMON NORMALS: Thyroid normal GENERAL: Yes normal visual inspection and Yes trachea midline THYROID: Thyroid normal CAROTIDS: No bruit CERVICAL SPINE: Yes cervical ROM normal Lymph: OTHER: No cervical or supraclavicular LAD. Resp: OTHER: Decreased breath sounds in the left lower lung lobe. No wheezes, rales or rhonchi. Cardio: OTHER: RRR, no m/r/g or clicks. 2+ radial and DP pulses. No carotid bruits GI: OTHER: BS+, NT, ND, no guarding, no rigidity, no rebound tenderness, no hepatosplenomegaly. Extremity: GENERAL: No clubbing, No cyanosis and No edema Neuro: SENSORIUM/ORIENTATION: Yes oriented to person, Yes oriented to place and Yes oriented to time CRANIAL NERVES: Yes CN normal except as noted S PEECH: speech normal SENSORY EXAM: Yes sensory level loss detected MOTOR EXAM: 5/5 motor strength present throughout and Normal motor muscle tone present throughout Psych: COMMON NORMALS: Normal thought process present and speech normal A PPEARANCE: Yes grossly normal ATTITUDE: Yes calm and Yes engaged A CTIVITY/MOTOR BEHAVIOR: Yes appropriate eye contact SPEECH: Yes normal speech MOOD & AFFECT: Yes euthymic mood THOUGHT PROCESS: Normal thought process present THOUGHT CONTENT: Yes Normal thought content present A TTENTION/CONCENTRATION: Yes attention grossly intact MEMORY/COGNITION: Yes memory grossly intact Skin: COMMON NORMALS: no rashes or lesions noted GENERAL SKIN EXAM: no rashes or lesions noted Data 10/25/24 04:24 10/25/24 04:24 A&P Assessment and plan (1) UTI (urinary tract infection): (2) Generalized weakness: (3) CKD (chronic kidney disease): (4) Breast cancer: (5) Emphysema lung: (6) Insulin dependent type 2 diabetes mellitus: (7) HTN (hypertension), benign: Plan Amaris Larsen is a 74 yo woman w/ a hx of L breast cancer about 30yrs s/p chemo/XRT, and now R. breast cancer dx'ed in 07/2024 on chemotherapy, renal cell carcinoma s/p R. nephrectomy and adrenalectomy at [facility] in [place], [place] in 06/2021, R. LE DVT in 06/2021 on Eliquis, CKDIIIB, metabolic syndrome, TIA in 11/2022, and Depression, who presents to the ED on 10/24/2024, via EMS, w/ 2 days of generalized weakness. In the ED, her vital signs are within normal limits. Her labs were unremarkable except for a stable Cr of 2.0, BG of 267, & Mg of 1.6. Her UA was concerning for a UTI. Her COVID-19/influenza A&B and RSV PCR were negative. Her CXR showed bibasilar atelectasis. #UTI: Immunocompromise in setting of chemotherapy for breast cancer. Follow-up blood culture, urine culture. Continue with IV cefepime. Appreciate past culture history. Generalized weakness: Most likely in setting of UTI, diarrhea in setting of chronic chemotherapy. Physical therapy evaluation. Patient lives at home with her . Diarrhea: Seems to be chronic since starting of new chemotherapy medication. For now we will check and rule out infection. Hold off on loperamide. If C. difficile negative will start on loperamide. Continue to monitor. #IDDM2: A1c 9.1. Continue with glargine 20 units twice daily, insulin sliding scale ACHS. Depending on insulin requirement in next 24 hours we will plan for increasing the dose of Lantus. #RJuan LE DVT in 06/2021: On Eliquis - held. Started full dose lovenox. Resume home dose of Eliquis on discharge. #HTN: Goal blood pressure less than 140/90 mmHg. Holding off on home dose of amlodipine for now. Will restart as per goal blood pressure. #HLD: Resumed home meds #GERD: Continue with Protonix daily. #CKDIIIB: Baseline creatinine 1.7-2. Currently 2.1. Monitor daily. Medical reconciliation done for nephrotoxic drugs. #Depression/Insomnia: Continue with home dose of paroxetine. Trazodone changed to as needed. #Breast cancer: Continue chemotherapy. #COPD: Order duoneb prn. Held her long acting inhaller. Full code Carb consistent cardiac diet DVT ppx: Lovenox GI ppx: Pantoprazole. Attestations 2 Medical Necessity Statement*: Requires further hospitalization for management generalized weakness in setting of UTI, diarrhea patient with breast cancer on oral chemotherapy Diagnoses UTI (urinary tract infection) N39.0 Generalized weakness R53.1 CKD (chronic kidney disease) N18.9 Breast cancer C50.919 Emphysema lung J43.9 Insulin dependent type 2 diabetes mellitus E11.9; Z79.4 HTN (hypertension), benign I10
[2024-10-25 12:39] LABS: Iron 33 ug/dL (37-145); Percent Saturation 12.3 % (20-50); Total Iron Binding Capacity 268 mcg/dl; Unsaturated Iron Binding 235 ug/dL (112-347)
[2024-10-25 12:55] LABS: Vitamin B12 420 pg/mL (232-1245)
[2024-10-25 17:22] LABS: Glucose Point of Care 161 mg/dL (70-110)
[2024-10-25] MEDS: HYDROcodone-acetaminophen 10-325 mg Tablet 1 TAB PO (17:46)
[2024-10-25 20:51] LABS: Glucose Point of Care 263 mg/dL (70-110)
[2024-10-25] MEDS: enoxaparin 40 mg/0.4 mL Syringe 80 MG SUBCUT (22:27)
[2024-10-25] MEDS: trazodone 100 mg Tablet PO (22:28)
[2024-10-25] MEDS: cefepime 1,000 mg SDV 1000 MG IVP (22:28)
[2024-10-25] MEDS: atorvastatin 40 mg Tablet PO (22:28)
[2024-10-26] VITALS (11 sets, daily range): BP systolic 100–155; BP diastolic 61–83; PULSE 70–85; RESP 15–19; TEMP 36.4–36.9; O2SAT 93–97
[2024-10-26 05:29] LABS: Basophils % 0.9 %; Eosinophils # 0.2 10^3/uL (0.0-0.8); Eosinophils % 3.9 %; Hematocrit 35.8 % (36-47); Lymphocytes # 1.8 10^3/uL (0.8-4.8); Lymphocytes % 39.4 %; Mean Corpuscular HGB Conc 30.4 g/dL (30-55); Mean Corpuscular Hemoglobin 28.2 pg (27-33); Mean Corpuscular Volume 92.5 fl (85-98); Mean Platelet Volume 9.3 fL (7.4-10.4); Monocytes # 0.2 10^3/uL (0.2-0.9); Monocytes % 4.7 %; Neutrophils # 2.37 10^3/uL (1.8-7.7); Neutrophils % 50.9 %; Nucleated Red Blood Cells % 0 %; Platelet Count 139 10^3/cmm (157-399); Red Blood Count 3.87 10^6/uL (3.85-5.65); Red Cell Distribution Width 14.4 % (12.1-15.1); White Blood Count 4.65 10^3/uL (3.29-11.43)
[2024-10-26 05:49] LABS: Anion Gap 11.9 (5-19); Blood Urea Nitrogen 24 mg/dL (8-23); Calcium 9.2 mg/dL (8.5-10.5); Carbon Dioxide 25 mmol/L (22-29); Chloride 108 mmol/L (98-107); Creatinine Clr Calc Pharmacy 27.8528; Glucose 113 mg/dL (65-115); Osmolality Calculated 297 mOsm/kg (285-295); Phosphorus 3.3 mg/dL (2.5-4.5); Potassium 3.9 mmol/L (3.5-5.1); Sodium 141 mmol/L (136-145)
[2024-10-26 06:39] LABS: Glucose Point of Care 138 mg/dL (70-110)
[2024-10-26] MEDS: HYDROcodone-acetaminophen 10-325 mg Tablet 1 TAB PO ×3 (07:32→23:03)
[2024-10-26 07:48] LABS: Folate Level 9.3 ng/mL (4.8-37.3)
[2024-10-26] MEDS: pantoprazole DR 40 mg Tablet PO (08:46)
[2024-10-26] MEDS: sennosides 8.6 mg Tablet 17.2 MG PO (08:46)
[2024-10-26] MEDS: insulin glargine 100 units/1 mL 20 UNIT SUBCUT ×2 (08:51→21:24)
[2024-10-26 11:56] LABS: Glucose Point of Care 193 mg/dL (70-110)
[2024-10-26] MEDS: insulin lispro 100 unit/1 mL SUBCUT ×2 (12:25→17:44)
[2024-10-26] MEDS: amlodipine 10 mg Tablet PO (14:20)
--- NOTE | 2024-10-26 15:20 | PM.PN ---
Subjective Subjective: No acute events overnight. Has remained hemodynamically stable and afebrile. Denies any nausea, vomiting, headache. Diarrhea seems to be improving. Worked well with physical therapy yesterday. Remains on room air. Vitals/I&O/Wt Last Vital Signs Temp 97.9 F 10/26/24 11:29 Pulse 82 10/26/24 11:29 Resp 15 10/26/24 11:29 BP 148/79 10/26/24 11:29 Pulse Ox 94 10/26/24 11:29 O2 Del Method Room Air 10/26/24 11:29 10/26/24 10/26/24 10/26/24 06:59 14:59 22:59 Intake Total 480 / 480 Balance 480 / 480 Weight last 48 hrs Weight 77.836 kg Weight 77.292 kg Weight 76.657 kg Weight 81.647 kg Physical Exam Const: GENERAL APPEARANCE: cooperative and comfortable ORIENTATION/CONSCIOUSNESS: Yes awake, Yes oriented to person, Yes oriented to place and Yes oriented to time HENMT: COMMON NORMALS: normocephalic, atraumatic, external ears normal and Normal external nose present HEAD & SCALP: normocephalic and atraumatic NOSE: Normal external nose present EXTERNAL EAR: Yes external ears normal MOUTH: Normal oral and palatal mucosa present THROAT: posterior oropharynx normal Eye: OTHER: EOMI, PERRL, conjunctiva normal b/l Neck/C-Spine: COMMON NORMALS: Thyroid normal GENERAL: Yes normal visual inspection and Yes trachea midline THYROID: Thyroid normal CAROTIDS: No bruit CERVICAL SPINE: Yes cervical ROM normal Lymph: OTHER: No cervical or supraclavicular LAD. Resp: OTHER: Decreased breath sounds in the left lower lung lobe. No wheezes, rales or rhonchi. Cardio: OTHER: RRR, no m/r/g or clicks. 2+ radial and DP pulses. No carotid bruits GI: OTHER: BS+, NT, ND, no guarding, no rigidity, no rebound tenderness, no hepatosplenomegaly. Extremity: GENERAL: No clubbing, No cyanosis and No edema Neuro: SENSORIUM/ORIENTATION: Yes oriented to person, Yes oriented to place and Yes oriented to time CRANIAL NERVES: Yes CN normal except as noted SPEECH: speech normal SENSORY EXAM: Yes sensory level loss detected MOTOR EXAM: 5/5 motor strength present throughout and Normal motor muscle tone present throughout Psych: COMMON NORMALS: Normal thought process present and speech normal APPEARANCE: Yes grossly normal ATTITUDE: Yes calm and Yes engaged ACTIVITY/MOTOR BEHAVIOR: Yes appropriate eye contact SPEECH: Yes normal speech MOOD & AFFECT: Yes euthymic mood THOUGHT PROCESS: Normal thought process present THOUGHT CONTENT: Yes Normal thought content present ATTENTION/CONCENTRATION: Yes attention grossly intact MEMORY/COGNITION: Yes memory grossly intact Skin: COMMON NORMALS: no rashes or lesions noted GENERAL SKIN EXAM: no rashes or lesions noted Data 10/26/24 05:12 10/26/24 05:12 Micro: Microbiology 10/24/24 21:35 Urine Culture - Preliminary Urine,Clean Catch Gram Negative Rods A&P Assessment and plan (1) UTI (urinary tract infection): (2) Generalized weakness: (3) CKD (chronic kidney disease): (4) Breast cancer: (5) Emphysema lung: (6) Insulin dependent type 2 diabetes mellitus: (7) HTN (hypertension), benign: Plan Amaris Larsen is a 74 yo woman w/ a hx of L breast cancer about 30yrs s/p chemo/XRT, and now R. breast cancer dx'ed in 07/2024 on chemotherapy, renal cell carcinoma s/p R. nephrectomy and adrenalectomy at [facility] in [place], [place] in 06/2021, R. LE DVT in 06/2021 on Eliquis, CKDIIIB, metabolic syndrome, TIA in 11/2022, and Depression, who presents to the ED on 10/24/2024, via EMS, w/ 2 days of generalized weakness. In the ED, her vital signs are within normal limits. Her labs were unremarkable except for a stable Cr of 2.0, BG of 267, & Mg of 1.6. Her UA was concerning for a UTI. Her COVID-19/influenza A&B and RSV PCR were negative. Her CXR showed bibasilar atelectasis. #UTI: Immunocompromise in setting of chemotherapy for breast cancer. Follow-up blood culture, urine culture. Continue with IV cefepime. Appreciate past culture history. Generalized weakness: Most likely in setting of UTI, diarrhea in setting of chronic chemotherapy. Physical therapy evaluation. Patient lives at home with her . Diarrhea: Seems to be chronic since starting of new chemotherapy medication. For now we will check and rule out infection. Hold off on loperamide. If C. difficile negative will start on loperamide. Continue to monitor. #IDDM2: A1c 9.1. Continue with glargine 20 units twice daily, insulin sliding scale ACHS. Depending on insulin requirement in next 24 hours we will plan for increasing the dose of Lantus. #Jesus QUIROZ DVT in 06/2021: On Eliquis - held. Started full dose lovenox. Resume home dose of Eliquis on discharge. #HTN: Goal blood pressure less than 140/90 mmHg. Holding off on home dose of amlodipine for now. Will restart as per goal blood pressure. #HLD: Resumed home meds #GERD: Continue with Protonix daily. #CKDIIIB: Baseline creatinine 1.7-2. Currently 2.1. Monitor daily. Medical reconciliation done for nephrotoxic drugs. #Depression/Insomnia: Continue with home dose of paroxetine. Trazodone changed to as needed. #Breast cancer: Continue chemotherapy. #COPD: Order duoneb prn. Held her long acting inhaller. Plan for the day: Continue with current IV antibiotics. Follow-up blood stool studies and urine culture. Blood cultures not done on admission. Stop full dose Lovenox. Switch to home dose Eliquis 5 mg twice daily. Goal blood pressure less than 140/90 mmHg. Continue with home dose of amlodipine. Will uptitrate as for goal blood pressure. Appreciate physical therapy evaluation. Recommend home exercise program. Discharge plan: Can plan to discharge in next 24 hours depending on the urine culture results. Patient remains hemodynamically stable and afebrile. Full code Carb consistent cardiac diet DVT ppx: Lovenox GI ppx: Pantoprazole. Attestations Medical Necessity Statement*: Requires further hospitalization for management of generalized weakness in setting of UTI, diarrhea in a patient on chemotherapy for cancer. Diagnoses UTI (urinary tract infection) N39.0 Generalized weakness R53.1 CKD (chronic kidney disease) N18.9 Breast cancer C50.919 Emphysema lung J43.9 Insulin dependent type 2 diabetes mellitus E11.9; Z79.4 HTN (hypertension), benign I10
[2024-10-26 16:54] LABS: Glucose Point of Care 197 mg/dL (70-110)
[2024-10-26] MEDS: apixaban 5 mg Tablet PO (17:44)
[2024-10-26 20:49] LABS: Glucose Point of Care 149 mg/dL (70-110)
[2024-10-26] MEDS: cefepime 1,000 mg SDV 1000 MG IVP (21:24)
[2024-10-26] MEDS: atorvastatin 40 mg Tablet PO (21:24)
[2024-10-26] MEDS: trazodone 100 mg Tablet PO (21:24)
[2024-10-27] VITALS (7 sets, daily range): BP systolic 150–166; BP diastolic 73–75; PULSE 77–89; RESP 16–18; TEMP 36.6–36.8; O2SAT 94–96
[2024-10-27 00:26] LABS: C.Diff PCR (Lab) NEGATIVE (Negative)
[2024-10-27 04:41] LABS: Basophils % 0.4 %; Eosinophils # 0.2 10^3/uL (0.0-0.8); Eosinophils % 3.3 %; Hematocrit 35.5 % (36-47); Lymphocytes # 1.6 10^3/uL (0.8-4.8); Lymphocytes % 35.7 %; Mean Corpuscular HGB Conc 30.1 g/dL (30-55); Mean Corpuscular Hemoglobin 27.8 pg (27-33); Mean Corpuscular Volume 92.2 fl (85-98); Mean Platelet Volume 9.2 fL (7.4-10.4); Monocytes # 0.2 10^3/uL (0.2-0.9); Monocytes % 5.1 %; Neutrophils # 2.47 10^3/uL (1.8-7.7); Neutrophils % 55.3 %; Nucleated Red Blood Cells % 0 %; Platelet Count 143 10^3/cmm (157-399); Red Blood Count 3.85 10^6/uL (3.85-5.65); Red Cell Distribution Width 14.4 % (12.1-15.1); White Blood Count 4.48 10^3/uL (3.29-11.43)
[2024-10-27 05:17] LABS: Anion Gap 14.9 (5-19); Blood Urea Nitrogen 23 mg/dL (8-23); Calcium 9.5 mg/dL (8.5-10.5); Carbon Dioxide 23 mmol/L (22-29); Chloride 105 mmol/L (98-107); Creatinine Clr Calc Pharmacy 31.1518; Glucose 174 mg/dL (65-115); Osmolality Calculated 296 mOsm/kg (285-295); Phosphorus 3.2 mg/dL (2.5-4.5); Potassium 3.9 mmol/L (3.5-5.1); Sodium 139 mmol/L (136-145)
[2024-10-27 05:22] LABS: Magnesium 1.7 mg/dL (1.7-2.3)
[2024-10-27 06:37] LABS: Glucose Point of Care 167 mg/dL (70-110)
[2024-10-27] MEDS: insulin lispro 100 unit/1 mL SUBCUT ×2 (09:10→12:44)
[2024-10-27] MEDS: insulin glargine 100 units/1 mL 20 UNIT SUBCUT (09:10)
[2024-10-27] MEDS: amlodipine 10 mg Tablet PO (09:11)
[2024-10-27] MEDS: sennosides 8.6 mg Tablet 17.2 MG PO (09:11)
[2024-10-27] MEDS: PARoxetine 20 mg Tablet 30 MG PO (09:12)
[2024-10-27] MEDS: HYDROcodone-acetaminophen 10-325 mg Tablet 1 TAB PO (09:12)
[2024-10-27] MEDS: apixaban 5 mg Tablet PO (09:12)
[2024-10-27] MEDS: pantoprazole DR 40 mg Tablet PO (09:12)
[2024-10-27 11:38] LABS: Glucose Point of Care 204 mg/dL (70-110)
--- NOTE | 2024-10-27 13:34 | PM.DCS ---
Discharge Providers Date of Admission: 10/24/24 22:40 Date of Discharge: October 27, 2024 Attending Provider at Admission: Irina Engle MD Attending Provider at Discharge: Jose Armando Najera MD Primary Care Provider: Chad Stern Diagnoses at Discharge Discharge Diagnosis (1) UTI (urinary tract infection): Status: Acute (2) Generalized weakness: Status: Acute (3) CKD (chronic kidney disease): Status: Acute (4) Breast cancer: Status: Chronic Permanent problem details: right and left (5) Emphysema lung: Status: Acute (6) Insulin dependent type 2 diabetes mellitus: Status: Acute (7) HTN (hypertension), benign: Status: Chronic Reason for Visit Reason for Visit: unable to walking Brief History: History as per HPI: Amaris Larsen is a 74 yo woman w/ a hx of L breast cancer about 30yrs s/p chemo/XRT, and now R. breast cancer dx'ed in 07/2024 on chemotherapy, renal cell carcinoma s/p R. nephrectomy and adrenalectomy at [facility] in [place], [place] in 06/2021, R. LE DVT in 06/2021 on Eliquis, CKDIIIB, metabolic syndrome, TIA in 11/2022, and Depression, who presents to the ED on 10/24/2024, via EMS, w/ 2 days of generalized weakness. The patient patient states that starting approximately 2 weeks ago, she noticed that she would shake and was weak. She normally uses a walker and gets around w/o assistance. However, in the last 2 weeks, she has needed support from her for ambulation. Her generalized weakness progressed to the point that her could no longer physically help her, so he called EMS. She endorses chills, dizziness, light headedness, SOB w/ exertion, productive cough of brown sputum, nasal congestion, watery diarrhea, increased urinary urgency or frequency. She denies fevers, falls, head trauma or headaches, syncope, wheezing, nasal discharge, CP, palpitations In the ED, her vital signs are within normal limits. Her labs were unremarkable except for a stable Cr of 2.0, BG of 267, & Mg of 1.6. Her UA was concerning for a UTI. Her COVID-19/influenza A&B and RSV PCR were negative. Her CXR showed bibasilar atelectasis. Hospital Course Hospital Course Patient was admitted to the hospital further evaluation and management of generalized weakness which was thought to be in setting of recent chemotherapy, diarrhea and possible UTI. She started on IV fluids and broad-spectrum antibiotics. Urine cultures are growing gram-negative rods. Patient has remained hemodynamically stable and afebrile. Stool studies are negative for C. difficile. Unfortunately blood cultures were not collected on admission. She worked well with physical therapy and have prescribed her home exercise program. She has been discharged in hemodynamically stable condition back home on oral Levaquin as per culture history. She is advised to oral intake with at least 50 ounces of fluid daily. A1c was found to be more than 9. She is to follow with a primary care provider within next 1 week. Physical Exam Const: GENERAL APPEARANCE: cooperative and comfortable ORIENTATION/CONSCIOUSNESS: Yes awake, Yes oriented to person, Yes oriented to place and Yes oriented to time HENMT: COMMON NORMALS: normocephalic, atraumatic, external ears normal and Normal external nose present HEAD & SCALP: normocephalic and atraumatic NOSE: Normal external nose present EXTERNAL EAR: Yes external ears normal MOUTH: Normal oral and palatal mucosa present THROAT: posterior oropharynx normal Eye: OTHER: EOMI, PERRL, conjunctiva normal b/l Neck/C-Spine: COMMON NORMALS: Thyroid normal GENERAL: Yes normal visual inspection and Yes trachea midline THYROID: Thyroid normal CAROTIDS: No bruit CERVICAL SPINE: Yes cervical ROM normal Lymph: OTHER: No cervical or supraclavicular LAD. Resp: OTHER: Decreased breath sounds in the left lower lung lobe. No wheezes, rales or rhonchi. Cardio: OTHER: RRR, no m/r/g or clicks. 2+ radial and DP pulses. No carotid bruits GI: OTHER: BS+, NT, ND, no guarding, no rigidity, no rebound tenderness, no hepatosplenomegaly. Extremity: GENERAL: No clubbing, No cyanosis and No edema Neuro: SENSORIUM/ORIENTATION: Yes oriented to person, Yes oriented to place and Yes oriented to time CRANIAL NERVES: Yes CN normal except as noted SPEECH: speech normal SENSORY EXAM: Yes sensory level loss detected MOTOR EXAM: 5/5 motor strength present throughout and Normal motor muscle tone present throughout Psych: COMMON NORMALS: Normal thought process present and speech normal APPEARANCE: Yes grossly normal ATTITUDE: Yes calm and Yes engaged ACTIVITY/MOTOR BEHAVIOR: Yes appropriate eye contact SPEECH: Yes normal speech MOOD & AFFECT: Yes euthymic mood THOUGHT PROCESS: Normal thought process present THOUGHT CONTENT: Yes Normal thought content present ATTENTION/CONCENTRATION: Yes attention grossly intact MEMORY/COGNITION: Yes memory grossly intact Skin: COMMON NORMALS: no rashes or lesions noted GENERAL SKIN EXAM: no rashes or lesions noted Discharge Data Studies Completed and Pending Completed Studies During Hospitalization Category Date Time Status XR chest 1V portable [id number] Stat Exams 10/24/24 19:49 Completed Pending at discharge Category Date Time Status Gastrointestinal Pathogen Morgan Routine Lab 10/25/24 17:45 Received MAG [Magnesium] AM LABS Lab 10/28/24 04:00 Ordered Urine Culture Stat Lab 10/24/24 21:35 Results Radiology Impressions Chest X-Ray 10/24/24 19:49 IMPRESSION: As above. Microbiology 10/24/24 21:35 Urine,Clean Catch Urine Culture - Preliminary Gram Negative Rods Laboratory Results WBC 4.48 10^3/uL (3.29-11.43) 10/27/24 04:20 RBC 3.85 10^6/uL (3.85-5.65) 10/27/24 04:20 Hgb 10.70 g/dL (11.27-16.99) L 10/27/24 04:20 Hct 35.5 % (36-47) L 10/27/24 04:20 MCV 92.2 fl (85-98) 10/27/24 04:20 MCH 27.8 pg (27-33) 10/27/24 04:20 MCHC 30.1 g/dL (30-55) 10/27/24 04:20 RDW 14.4 % (12.1-15.1) 10/27/24 04:20 Plt Count 143 10^3/cmm (157-399) L 10/27/24 04:20 MPV 9.2 fL (7.4-10.4) 10/27/24 04:20 Neut % (Auto) 55.3 % 10/27/24 04:20 Lymph % (Auto) 35.7 % 10/27/24 04:20 [place] % (Auto) 5.1 % 10/27/24 04:20 Eos % (Auto) 3.3 % 10/27/24 04:20 Baso % (Auto) 0.4 % 10/27/24 04:20 Neut # (Auto) 2.47 10^3/uL (1.8-7.7) 10/27/24 04:20 Lymph # (Auto) 1.6 10^3/uL (0.8-4.8) 10/27/24 04:20 [place] # (Auto) 0.2 10^3/uL (0.2-0.9) 10/27/24 04:20 Eos # (Auto) 0.2 10^3/uL (0.0-0.8) 10/27/24 04:20 Baso # (Auto) 0.0 10^3/uL (0.0-0.1) 10/27/24 04:20 Nucleated RBC % (auto) 0 % 10/27/24 04:20 Nucleated RBCs # 0.0 /100WBC 10/27/24 04:20 PT 16.90 SECONDS (12.1-14.9) H 10/25/24 04:24 INR 1.28 (0.8-1.2) H 10/25/24 04:24 APTT 43.1 SECONDS (23.9-36.7) H 10/25/24 04:24 Sodium 139 mmol/L (136-145) 10/27/24 04:20 Potassium 3.9 mmol/L (3.5-5.1) 10/27/24 04:20 Chloride 105 mmol/L (98-107) 10/27/24 04:20 Carbon Dioxide 23 mmol/L (22-29) 10/27/24 04:20 Anion Gap 14.9 (5-19) 10/27/24 04:20 BUN 23 mg/dL (8-23) 10/27/24 04:20 Creatinine 1.6 mg/dL (0.5-0.9) H 10/27/24 04:20 GFR Calculation Not Reportable 10/27/24 04:20 Glucose 174 mg/dL (65-115) H 10/27/24 04:20 POC Glucose 204 mg/dL (70-110) H 10/27/24 11:29 Estimat Average Glucose 214 10/25/24 04:24 Hemoglobin A1c 9.1 % (4.0-6.0) H 10/25/24 04:24 Calculated Osmolality 296 mOsm/kg (285-295) H 10/27/24 04:20 Calcium 9.5 mg/dL (8.5-10.5) 10/27/24 04:20 Phosphorus 3.2 mg/dL (2.5-4.5) 10/27/24 04:20 Magnesium 1.7 mg/dL (1.7-2.3) 10/27/24 04:20 Iron 33 ug/dL (37-145) L 10/25/24 04:24 TIBC 268 mcg/dl 10/25/24 04:24 % Saturation 12.3 % (20-50) L 10/25/24 04:24 Unsat Iron Binding 235 ug/dL (112-347) 10/25/24 04:24 Total Bilirubin 0.3 mg/dL (0.15-1.2) 10/24/24 20:25 AST 11 U/L (0-32) 10/24/24 20:25 ALT 11 U/L (0-33) 10/24/24 20:25 Alkaline Phosphatase 117 U/L (35-105) H 10/24/24 20:25 Troponin T Baseline 23 ng/L (0-10) H 10/24/24 20:25 Total Protein 6.7 g/dL (6.6-8.7) 10/24/24 20:25 Albumin 3.9 g/dL (3.5-5.2) 10/24/24 20:25 Globulin 2.8 g/dL (1.3-4.6) 10/24/24 20:25 Vitamin B12 420 pg/mL (232-1245) 10/25/24 04:24 Folate 9.3 ng/mL (4.8-37.3) 10/26/24 05:12 TSH 0.92 uIU/mL (0.27-4.20) 10/25/24 04:24 Urine Color Yellow (Yellow) 10/24/24 21:35 Urine Appearance Clear (CLEAR) 10/24/24 21:35 Urine pH 5.0 (5-7) 10/24/24 21:35 Ur Specific [place] 1.020 (1.005-1.030) 10/24/24 21:35 Urine Protein 2+ (Negative) A 10/24/24 21:35 Urine Glucose (UA) 2+ (Normal) H 10/24/24 21:35 Urine Ketones Negative (Negative) 10/24/24 21:35 Urine Blood Negative (Negative) 10/24/24 21:35 Urine Nitrate Positive (Negative) A 10/24/24 21:35 Urine Bilirubin Negative (Negative) 10/24/24 21:35 Urine Urobilinogen 0.2 mg/dL (Negative) 10/24/24 21:35 Ur Leukocyte Esterase Trace (Negative) A 10/24/24 21:35 Urine RBC 0-2 /hpf (0-2) 10/24/24 21:35 Urine WBC 11-20 /hpf (0-5) H 10/24/24 21:35 Ur Squamous Epith Cells 0-5 /hpf (0-5) 10/24/24 21:35 Amorphous Sediment Not Reportable 10/24/24 21:35 Urine Bacteria 4+ /hpf (NONE) H 10/24/24 21:35 Hyaline Casts 2.05 /lpf 10/24/24 21:35 C. difficile (PCR) Negative (Negative) 10/26/24 23:00 Coronavirus (PCR) Negative (Negative) 10/24/24 20:36 Influenza A (PCR) Negative (Negative) 10/24/24 20:36 Influenza Type B (PCR) Negative (Negative) 10/24/24 20:36 RSV (PCR) Negative (Negative) 10/24/24 20:36 Vitals Last Vital Signs Temp 98.1 F 10/27/24 12:43 Pulse 80 10/27/24 12:43 Resp 16 10/27/24 12:43 BP 166/73 10/27/24 12:43 Pulse Ox 96 10/27/24 11:26 O2 Del Method Room Air 10/27/24 11:26 Discharge Plan Discharge Patient Disposition: Home Condition: Stable Prescriptions: New levofloxacin 500 mg tablet 500 mg PO Q24H 7 Days Qty: 7 0RF Continued anastrozole 1 mg tablet 1 mg PO DAILY 90 Days Qty: 90 0RF atorvastatin 40 mg tablet 40 mg PO BEDTIME 90 Days Qty: 90 1RF paroxetine HCl 30 mg tablet 30 mg PO EVERY OTHER DAY 90 Days Qty: 90 1RF trazodone 100 mg tablet 100 mg PO BEDTIME 90 Days Qty: 90 3RF pantoprazole 40 mg tablet,delayed release (DR/EC) 40 mg PO DAILY 90 Days Qty: 90 1RF ondansetron HCl 4 mg tablet 4 mg PO Q8H PRN (Reason: nausea and vomiting) Qty: 30 3RF hydrocodone-acetaminophen 10-325 mg tablet 1 tab PO Q8H PRN (Reason: pain) 30 Days Qty: 90 0RF amlodipine 10 mg tablet 10 mg PO DAILY Rx Instructions: Take 1 tablet by mouth once daily Eliquis 5 mg tablet 5 mg PO BID Rx Instructions: TAKE ONE TABLET BY MOUTH TWICE DAILY letrozole 2.5 mg tablet 2.5 mg PO DAILY Rx Instructions: patient no longer taking Verzenio 100 mg tablet 100 mg PO BID ergocalciferol (vitamin D2) 1,250 mcg (50,000 unit) capsule 50,000 unit PO UNK Rx Instructions: taken weekly on Monday Fiasp FlexTouch U-100 Insulin 100 unit/mL (3 mL) insulin pen See Protocol SUBCUT TID Protocol: Insulin Corrective High-Dose Regimen Condition: Fingerstick Blood Glucose Dose/Route: Insulin Units Condition: 141-180 mg/dl Dose/Route: 6 units/SQ Condition: 181-220 mg/dl Dose/Route: 8 units/SQ Condition: 221-260 mg/dl Dose/Route: 10 units/SQ Condition: 261-300 mg/dl Dose/Route: 12 units/SQ Condition: 301-350 mg/dl Dose/Route: 14 units/SQ Condition: 351-400 mg/dl Dose/Route: 16 units/SQ Condition: greater than 400 mg/dl Dose/Route: 18 units/SQ Rx Instructions: INJECT 3 TIMES DAILY WITH MEALS, ON SLIDING SCALE PROVIDED. MAX DAILY 45 UNITS Changed Basaglar KwikPen U-100 Insulin 100 unit/mL (3 mL) insulin pen 25 unit SUBCUT Q12H Qty: 15 0RF Dose Instruction: inject 20 units SUBCUTANEOUSLY every 12 hours Rx Instructions: inject 22 units SUBCUTANEOUSLY every 12 hours Discharge Orders: Discharge Order (Routine); Ordered 10/27/24 Ordered By: Jose Armando Najera Referrals: Chad Stern FNP [Primary Care Provider] - 7-10 days Discharge Diet: Cardiac Discharge Activity: Resume usual activity and Increase activity as tolerated Patient Instructions: Opioid Safety Activity Restrictions/Additional Instructions: Please maintain your oral hydration with at least 50 ounces of liquid daily. Take Levaquin 500 mg oral daily for next 7 days. Follow-up with a primary care provider within next 10 days. Dose of glargine has been increased to 25 units twice daily. Discharge Attestations Time Spent in Discharge Care*: greater than 30 min Specific Discharge Activities: educating patient, discussing with pcp/other providers, discussing with rehabilitation case coordinator/social workers/dc planners, documenting/other paperwork and evaluating patient/reviewing data Quality Metrics Clinical Quality Measures [ No reported AMI, CVA or VTE this stay] Coding Level of Care Code 76708 Total time (in minutes) for Discharge: 60 Diagnoses UTI (urinary tract infection) N39.0 Generalized weakness R53.1 CKD (chronic kidney disease) N18.9 Breast cancer C50.919 Emphysema lung J43.9 Insulin dependent type 2 diabetes mellitus E11.9; Z79.4 HTN (hypertension), benign I10
--- NOTE | 2024-10-27 16:07 | PC.NURSE ---
Discussed discharge with patient. Discussed new medications and changed medications as well as follow up appointments. Patient verbalized understanding.
== END 2024-10-27 15:19 | disposition home or self-care (01) | DRG 690 ==
LOC: ER 22:27 → MEDSURG 22:40
PROVIDERS: Admitting Provider Internal Medicine; Emergency Provider Student in an Organized Health Care Education/Training Program; PCP Nurse Practitioner Family; Visit Provider Student in an Organized Health Care Education/Training Program
DX: N39.0 Urinary tract infection, site not specified (principal); J98.11 Atelectasis; D84.821 Immunodeficiency due to drugs; B96.89 Other specified bacterial agents as the cause of diseases classified elsewhere; I12.9 Hypertensive chronic kidney disease with stage 1 through stage 4 chronic kidney disease, or unspecified chronic kidney disease; E11.22 Type 2 diabetes mellitus with diabetic chronic kidney disease; N18.32 Chronic kidney disease, stage 3b; J43.9 Emphysema, unspecified; Z79.4 Long term (current) use of insulin; Z92.3 Personal history of irradiation; Z85.3 Personal history of malignant neoplasm of breast; C50.911 Malignant neoplasm of unspecified site of right female breast; Z79.60 Long term (current) use of unspecified immunomodulators and immunosuppressants; Z85.528 Personal history of other malignant neoplasm of kidney; Z90.5 Acquired absence of kidney; Z86.718 Personal history of other venous thrombosis and embolism; Z79.01 Long term (current) use of anticoagulants; Z86.73 Personal history of transient ischemic attack (TIA), and cerebral infarction without residual deficits; F32.A Depression, unspecified; G47.00 Insomnia, unspecified; K21.9 Gastro-esophageal reflux disease without esophagitis; E78.5 Hyperlipidemia, unspecified; T45.1X5A Adverse effect of antineoplastic and immunosuppressive drugs, initial encounter; Z87.891 Personal history of nicotine dependence; Z95.828 Presence of other vascular implants and grafts; Z90.710 Acquired absence of both cervix and uterus; E88.810 Metabolic syndrome; Z79.891 Long term (current) use of opiate analgesic; Z79.811 Long term (current) use of aromatase inhibitors; R19.7 Diarrhea, unspecified
CPT/HCPCS: 36415; 36416; 71045; 80048; 80053; 81001; 82607; 82746; 82962; 83036; 83540; 83550; 83735; 84100; 84443; 84484; 85025; 85610; 85730; 87077; 87086; 87186; 87493; 87506; 87637; 96365; 96372; 96375; 97161; 99285; J0692; J0696; J1650; J1815; J3475; J7030

== ENCOUNTER → 2025-04-28 10:15 | Outpatient (BNVA) | payer MEDICARE, SELFPAY | PROVIDERS: PCP Nurse Practitioner Family; Visit Provider Nurse Practitioner Family | DX: E11.9 Type 2 diabetes mellitus without complications (principal); I10 Essential (primary) hypertension; E55.9 Vitamin D deficiency, unspecified; Z79.899 Other long term (current) drug therapy | CPT/HCPCS: 80053; 80061; 81003; 82306; 83036; 84443; 85025 ==

== ENCOUNTER → 2025-09-04 10:09 | Outpatient (BNVA) | payer MEDICARE, SELFPAY | PROVIDERS: PCP Nurse Practitioner Family; Visit Provider Nurse Practitioner Family | DX: E11.9 Type 2 diabetes mellitus without complications (principal); Z79.4 Long term (current) use of insulin | CPT/HCPCS: 80053; 80061; 81000; 81003; 82043; 83036; 85025 ==